=== PATIENT | male | born 1945 | race African-American/Black ===

== ENCOUNTER 2019-04-16 22:32 | Inpatient (IN) | payer MEDICARE, OTHER ==
[~2019-04-16] VITALS: Ht 203.2 cm; Wt 68.5 kg
[2019-04-16] MEDS ORDERED: ONDANSETRON HCL 4MG/2ML INJ IV STA (23:14)
[2019-04-16] MEDS ORDERED: SODIUM CHLORIDE 0.9% 1,000 ML IV ONE (23:14)
[2019-04-16 23:50] LABS: BASOPHILS % 0.5 % (0.0-2.0); EOSINOPHILS % 0.1 % (0.0-5.0); HEMATOCRIT. 43.3 % (42.0-52.0); HEMOGLOBIN. 12.1 g/dL (14.0-18.0); LYMPHOCYTES % 7.9 % (20.0-50.0); MEAN CORPUSCULAR HEMOGLOBIN 27.1 pg (28.0-32.0); MEAN CORPUSCULAR VOLUME 96.6 fL (80.0-94.0); MEAN PLATELET VOLUME 10.7 fl (7.4-10.4); MONOCYTES % 3.5 % (2.0-8.0); PLATELET 286 x1000/uL (130-400); RED BLOOD CELL COUNT 4.48 mill/uL (4.7-6.1); RED CELL DISTRIBUTION WIDTH 16.4 % (11.6-14.6)
[2019-04-16 23:53] LABS: CHLORIDE 84 mEq/L (98-107)
[2019-04-17] VITALS (36 sets, daily range): BP systolic 93–141; BP diastolic 51–78
[2019-04-17] MEDS ORDERED: SODIUM CHLORIDE 0.9% 1,000 ML IV ONE ×2 (00:50)
[2019-04-17] MEDS ORDERED: INSULIN REGULAR (DRIP) 100 UNITS in SODIUM CHLORIDE 0.9% 99 ML IV SCH (01:00)
[2019-04-17 01:12] LABS: PHOSPHORUS 3.9 mg/dL (2.5-4.9)
[2019-04-17 02:14] LABS: CLARITY URINE CLEAR (CLEAR); COLOR URINE YELLOW (YELLOW); KETONES URINE TRACE (NEGATIVE); LEUKOCYTE ESTERASE URINE NEGATIVE (NEGATIVE); NITRITE URINE NEGATIVE (NEGATIVE); OCCULT BLOOD URINE NEGATIVE (NEGATIVE); PH URINE 5.5 (4.5-8.0); PROTEIN URINE NEGATIVE (NEGATIVE); SPECIFIC GRAVITY URINE 1.032 (1.005-1.030); UROBILINOGEN URINE 0.2 E.U./dL (0.2-1.0)
[2019-04-17] MEDS ORDERED: DEXTROSE 50% WATER 50ML SYRINGE IV PRN ×2 (05:45)
[2019-04-17] MEDS ORDERED: HYDRALAZINE 20MG/ML VIAL IV PRN (06:00)
[2019-04-17] MEDS ORDERED: NA PHOS,M-B/NA PHOS,DI-BA ENEMA 118ML PR PRN (06:00)
[2019-04-17] MEDS: BLOOD SUGAR DIAGNOSTIC STRIP TEST SCH ×13 (06:00→21:08)
[2019-04-17] MEDS ORDERED: ONDANSETRON HCL 4MG/2ML INJ IV PRN (06:00)
[2019-04-17] MEDS ORDERED: MAGNESIUM/ALUMINUM HYDROXIDE/SIMETHICONE 30ML UDC PO PRN (06:00)
[2019-04-17] MEDS: SODIUM CHLORIDE 0.45% 1,000 ML IV SCH ×3 (06:00→21:07)
[2019-04-17] MEDS: SODIUM CHLORIDE 0.9% INJ 3ML FLUSH IVF SCH ×3 (06:00→22:32)
[2019-04-17] MEDS ORDERED: GUAIFENESIN 200MG/10ML SUGAR FREE UDC PO PRN (06:00)
[2019-04-17] MEDS ORDERED: DOCUSATE SODIUM 100MG CAPSULE PO PRN (06:00)
[2019-04-17] MEDS ORDERED: IPRATROPIUM/ALBUTEROL 0.5-3(2.5)MG/3ML NEB INH PRN (06:00)
[2019-04-17] MEDS ORDERED: CLONIDINE 0.1MG TABLET PO PRN (06:00)
[2019-04-17] MEDS ORDERED: LORAZEPAM 2MG/ML CPJ IV PRN (06:00)
[2019-04-17] MEDS ORDERED: HYDROCODONE/ACETAMINOPHEN 10/325MG TABLET PO PRN (06:00)
[2019-04-17] MEDS ORDERED: HYDROMORPHONE HCL/PF 2MG/ML CPJ IV PRN (06:00)
[2019-04-17] MEDS ORDERED: DIPHENHYDRAMINE 50MG/ML VIAL IV PRN (06:00)
[2019-04-17] MEDS ORDERED: ACETAMINOPHEN 325MG TABLET PO PRN (06:00)
[2019-04-17 06:28] LABS: HEMATOCRIT 38.2 % (42.0-52.0); HEMOGLOBIN 11.6 g/dL (14.0-18.0); MEAN CORPUSCULAR HEMOGLOBIN 26.8 pg (28.0-32.0); MEAN CORPUSCULAR VOLUME 88.1 fL (80.0-94.0); PLATELET 251 x1000/uL (130-400); RED BLOOD CELL COUNT 4.34 mill/uL (4.7-6.1); RED CELL DISTRIBUTION WIDTH 16.1 % (11.6-14.6)
[2019-04-17] MEDS ORDERED: INSULIN REGULAR (DRIP) 100 UNITS in SODIUM CHLORIDE 0.9% 99 ML IV PRN (07:00)
[2019-04-17] MEDS ORDERED: INSULIN REGULAR (DRIP) 100 UNITS in SODIUM CHLORIDE 0.9% 100 ML IV SCH (07:00)
[2019-04-17] MEDS: ENOXAPARIN 40MG/0.4ML SYR SUBCUT SCH (08:59)
[2019-04-17] MEDS: ASPIRIN 81MG EC TABLET PO SCH (08:59)
[2019-04-17 09:17] LABS: BG BASE EXCESS 0.2 mmol/L (-2.0-2.0); BG CARBOXYHEMOGLOBIN 0.1 % (0.5-1.5); BG DEOXYHEMOGLOBIN 2.5 % (0.0-5.0); BG FRACTION INSPIRED OXYGEN 28; BG HCO3 ACT 27.3 mmol/L (22.0-26.0); BG METHEMOGLOBIN 0.3 % (0.0-1.5); BG OXYGEN SATURATION 97.5 % (92.0-98.5); BG OXYHEMOGLOBIN 97.1 % (94.0-97.0); BG PCO2 56.2 mmHg (35.0-45.0); BG PH 7.304 (7.350-7.450); BG PO2 109.6 mmHg (75.0-100.0); BG SAMPLE SITE RIGHT RADIAL; BG VENT MODE NASAL CANNULA
[2019-04-17] MEDS ORDERED: MULT-1234 MT (11:21)
[2019-04-17] MEDS ORDERED: ASPI-1393 MT (11:21)
[2019-04-17] MEDS ORDERED: CLOP75TA15 MT (11:21)
[2019-04-17] MEDS ORDERED: APIX5TAB MT (11:21)
[2019-04-17] MEDS ORDERED: FINA5TAB11 MT (11:21)
[2019-04-17] MEDS ORDERED: CETI10TA6 MT (11:21)
[2019-04-17] MEDS ORDERED: FURO40TA5 MT (11:21)
[2019-04-17] MEDS ORDERED: CARV3.1242 MT (11:21)
[2019-04-17] MEDS ORDERED: TAMS-11 MT (11:21)
[2019-04-17] MEDS ORDERED: ATOR40TA70 MT (11:21)
[2019-04-17 11:48] LABS: *AMPHETAMINES SCREEN URINE NEGATIVE (NEGATIVE); *BARBITURATES SCREEN URINE NEGATIVE (NEGATIVE); *BENZODIAZEPINES SCREEN URINE NEGATIVE (NEGATIVE); CANNABINOID URINE SCREEN NEGATIVE (NEGATIVE); OPIATES URINE SCREEN NEGATIVE (NEGATIVE); PHENCYCLIDINE URINE SCREEN NEGATIVE (NEGATIVE)
[2019-04-17 11:49] LABS: *COCAINE SCREEN URINE NEGATIVE (NEGATIVE); METHADONE URINE SCREEN NEGATIVE (NEGATIVE)
[2019-04-17 13:35] LABS: BG BASE EXCESS 1.3 mmol/L (-2.0-2.0); BG CARBOXYHEMOGLOBIN 0.3 % (0.5-1.5); BG DEOXYHEMOGLOBIN 3.5 % (0.0-5.0); BG FRACTION INSPIRED OXYGEN 28; BG METHEMOGLOBIN 0.3 % (0.0-1.5); BG OXYGEN SATURATION 96.5 % (92.0-98.5); BG OXYHEMOGLOBIN 95.9 % (94.0-97.0); BG PCO2 54.5 mmHg (35.0-45.0); BG PH 7.329 (7.350-7.450); BG PO2 94.2 mmHg (75.0-100.0); BG SAMPLE SITE RIGHT BRACHIAL; BG TOTAL HEMOGLOBIN 11.2 g/dL (12.0-18.0); BG VENT MODE NASAL CANNULA
[2019-04-17] MEDS ORDERED: HYDROCODONE/ACETAMINOPHEN 5/325MG TABLET PO PRN (14:15)
[2019-04-17 14:25] LABS: BASOPHILS % 0.7 % (0.0-2.0); EOSINOPHILS % 2.1 % (0.0-5.0); HEMATOCRIT. 37.2 % (42.0-52.0); HEMOGLOBIN. 11.9 g/dL (14.0-18.0); LYMPHOCYTES % 11.3 % (20.0-50.0); MEAN CORPUSCULAR HEMOGLOBIN 26.8 pg (28.0-32.0); MEAN CORPUSCULAR VOLUME 83.5 fL (80.0-94.0); MEAN PLATELET VOLUME 9.4 fl (7.4-10.4); MONOCYTES % 10.3 % (2.0-8.0); NEUTROPHILS % 75.6 % (40.0-76.0); PLATELET 303 x1000/uL (130-400); RED BLOOD CELL COUNT 4.45 mill/uL (4.7-6.1); RED CELL DISTRIBUTION WIDTH 16.1 % (11.6-14.6)
[2019-04-17 14:28] LABS: CHLORIDE 116 mEq/L (98-107)
[2019-04-17 14:34] LABS: D-DIMER 0.4 mg/L FEU (<0.50); INR 1.1
[2019-04-17 14:39] LABS: CREATINE KINASE 175 IU/L (39-308); CREATINE KINASE MB FRACTION 1.4 ng/mL (0.5-3.6)
[2019-04-17] MEDS: CLOPIDOGREL 75MG TABLET PO SCH (15:29)
[2019-04-17] MEDS: TAMSULOSIN HCL 0.4MG SR CAPSULE PO SCH (15:30)
[2019-04-17] MEDS: FINASTERIDE 5MG TABLET PO SCH (15:30)
[2019-04-17] MEDS ORDERED: INSULIN GLARGINE UD 100 UNITS/ML SYR SUBCUT NR (16:00)
[2019-04-17] MEDS ORDERED: MEDICATION NOT ON FORMULARY EA (Apixaban (Eliquis) 1 TAB) MT SCH (17:00)
[2019-04-17] MEDS: INSULIN LISPRO 100 UNITS/ML SUBCUT SCH ×2 (17:32→21:49)
[2019-04-17] MEDS: PIPERACILLIN/TAZ 3.375G PREMIX 50 ML IV SCH ×2 (17:33→23:56)
[2019-04-17] MEDS: IPRATROPIUM/ALBUTEROL 0.5-3(2.5)MG/3ML NEB HHN SCH (21:13)
[2019-04-17] MEDS: BUDESONIDE 0.5MG/2ML NEB HHN SCH (21:13)
[2019-04-17] MEDS: CARVEDILOL 3.125 MG TABLET PO SCH (21:57)
[2019-04-18] VITALS (39 sets, daily range): BP systolic 85–140; BP diastolic 51–79
[2019-04-18] MEDS: ACETYLCYSTEINE 100MG/ML 10% VIAL 4ML INH SCH ×3 (01:59→16:36)
[2019-04-18] MEDS: IPRATROPIUM/ALBUTEROL 0.5-3(2.5)MG/3ML NEB HHN SCH ×5 (01:59→19:50)
[2019-04-18] MEDS: SODIUM CHLORIDE 0.45% 1,000 ML IV SCH ×4 (04:49→22:55)
[2019-04-18] MEDS: SODIUM CHLORIDE 0.9% INJ 3ML FLUSH IVF SCH ×3 (06:00→20:41)
[2019-04-18 06:16] LABS: CHLORIDE 112 mEq/L (98-107)
[2019-04-18 06:27] LABS: LDL CHOLESTEROL 23 mg/dL (5-100)
[2019-04-18 06:28] LABS: BASOPHILS % 0.8 % (0.0-2.0); HDL CHOLESTEROL 42 mg/dL (40-59); HEMOGLOBIN. 9.6 g/dL (14.0-18.0); LYMPHOCYTES % 16.7 % (20.0-50.0); MEAN CORPUSCULAR HEMOGLOBIN 26.9 pg (28.0-32.0); MEAN CORPUSCULAR VOLUME 83.6 fL (80.0-94.0); MEAN PLATELET VOLUME 9.6 fl (7.4-10.4); MONOCYTES % 6.9 % (2.0-8.0); NEUTROPHILS % 72.6 % (40.0-76.0); PLATELET 261 x1000/uL (130-400); RED BLOOD CELL COUNT 3.59 mill/uL (4.7-6.1); RED CELL DISTRIBUTION WIDTH 16.2 % (11.6-14.6); T4 FREE 1.36 ng/dL (0.76-1.46)
[2019-04-18] MEDS: PIPERACILLIN/TAZ 3.375G PREMIX 50 ML IV SCH ×3 (07:00→17:22)
[2019-04-18] MEDS: BLOOD SUGAR DIAGNOSTIC STRIP TEST SCH ×4 (07:08→21:27)
[2019-04-18] MEDS: INSULIN LISPRO 100 UNITS/ML SUBCUT SCH ×4 (07:13→21:49)
[2019-04-18] MEDS: BUDESONIDE 0.5MG/2ML NEB HHN SCH ×2 (07:21→19:50)
[2019-04-18] MEDS: ENOXAPARIN 40MG/0.4ML SYR SUBCUT SCH (08:35)
[2019-04-18] MEDS: CARVEDILOL 3.125 MG TABLET PO SCH ×2 (08:36→21:50)
[2019-04-18] MEDS: CLOPIDOGREL 75MG TABLET PO SCH (08:36)
[2019-04-18] MEDS: FINASTERIDE 5MG TABLET PO SCH (08:36)
[2019-04-18] MEDS: TAMSULOSIN HCL 0.4MG SR CAPSULE PO SCH (08:36)
[2019-04-18] MEDS: ASPIRIN 81MG EC TABLET PO SCH (08:37)
[2019-04-18] MEDS: MULTIVITAMINS,THER W-MINERALS TABLET PO SCH (08:37)
[2019-04-18] MEDS: ATORVASTATIN CALCIUM 40MG TABLET PO SCH (08:37)
[2019-04-18] MEDS: INSULIN GLARGINE UD 100 UNITS/ML SYR SUBCUT SCH (10:34)
[2019-04-19] VITALS (22 sets, daily range): BP systolic 106–134; BP diastolic 58–87
[2019-04-19] MEDS: PIPERACILLIN/TAZ 3.375G PREMIX 50 ML IV SCH ×4 (00:08→18:00)
[2019-04-19] MEDS: ACETYLCYSTEINE 100MG/ML 10% VIAL 4ML INH SCH ×3 (02:02→16:51)
[2019-04-19] MEDS: IPRATROPIUM/ALBUTEROL 0.5-3(2.5)MG/3ML NEB HHN SCH ×4 (02:03→20:23)
[2019-04-19] MEDS: SODIUM CHLORIDE 0.9% INJ 3ML FLUSH IVF SCH ×3 (06:00→21:34)
[2019-04-19] MEDS: BLOOD SUGAR DIAGNOSTIC STRIP TEST SCH ×4 (07:50→21:34)
[2019-04-19] MEDS: INSULIN LISPRO 100 UNITS/ML SUBCUT SCH ×4 (08:20→21:39)
[2019-04-19] MEDS: BUDESONIDE 0.5MG/2ML NEB HHN SCH ×2 (09:09→20:23)
[2019-04-19] MEDS: FINASTERIDE 5MG TABLET PO SCH (09:53)
[2019-04-19] MEDS: CARVEDILOL 3.125 MG TABLET PO SCH ×2 (09:54→21:40)
[2019-04-19] MEDS: TAMSULOSIN HCL 0.4MG SR CAPSULE PO SCH (09:54)
[2019-04-19] MEDS: CLOPIDOGREL 75MG TABLET PO SCH (09:54)
[2019-04-19] MEDS: MULTIVITAMINS,THER W-MINERALS TABLET PO SCH (09:54)
[2019-04-19] MEDS: ASPIRIN 81MG EC TABLET PO SCH (09:55)
[2019-04-19] MEDS: ENOXAPARIN 40MG/0.4ML SYR SUBCUT SCH (09:56)
[2019-04-19] MEDS: ATORVASTATIN CALCIUM 40MG TABLET PO SCH (09:57)
[2019-04-19] MEDS: INSULIN GLARGINE UD 100 UNITS/ML SYR SUBCUT SCH (10:00)
[2019-04-19 10:46] LABS: BASOPHILS % 0.3 % (0.0-2.0); EOSINOPHILS % 1.9 % (0.0-5.0); HEMATOCRIT. 28.5 % (42.0-52.0); LYMPHOCYTES % 17.1 % (20.0-50.0); MEAN CORPUSCULAR HEMOGLOBIN 26.3 pg (28.0-32.0); MEAN CORPUSCULAR VOLUME 83.5 fL (80.0-94.0); MEAN PLATELET VOLUME 9.5 fl (7.4-10.4); MONOCYTES % 7.2 % (2.0-8.0); NEUTROPHILS % 73.5 % (40.0-76.0); PLATELET 244 x1000/uL (130-400); RED BLOOD CELL COUNT 3.42 mill/uL (4.7-6.1); RED CELL DISTRIBUTION WIDTH 16.8 % (11.6-14.6)
[2019-04-19 11:34] LABS: CHLORIDE 107 mEq/L (98-107)
[2019-04-19] MEDS: SODIUM CHLORIDE 0.45% 1,000 ML IV SCH (15:57)
[2019-04-20] VITALS (16 sets, daily range): BP systolic 74–144; BP diastolic 48–75
[2019-04-20] MEDS: PIPERACILLIN/TAZ 3.375G PREMIX 50 ML IV SCH ×5 (00:26→23:35)
[2019-04-20] MEDS: ACETYLCYSTEINE 100MG/ML 10% VIAL 4ML INH SCH ×2 (01:05→07:40)
[2019-04-20] MEDS: IPRATROPIUM/ALBUTEROL 0.5-3(2.5)MG/3ML NEB HHN SCH ×4 (01:05→20:05)
[2019-04-20] MEDS: SODIUM CHLORIDE 0.9% INJ 3ML FLUSH IVF SCH ×3 (05:07→21:47)
[2019-04-20] MEDS: SODIUM CHLORIDE 0.45% 1,000 ML IV SCH (05:10)
[2019-04-20 07:00] LABS: BASOPHILS % 0.5 % (0.0-2.0); EOSINOPHILS % 2.6 % (0.0-5.0); HEMATOCRIT. 28.1 % (42.0-52.0); HEMOGLOBIN. 9.1 g/dL (14.0-18.0); MEAN CORPUSCULAR HEMOGLOBIN 26.7 pg (28.0-32.0); MEAN CORPUSCULAR VOLUME 82.6 fL (80.0-94.0); MEAN PLATELET VOLUME 9.5 fl (7.4-10.4); MONOCYTES % 8.1 % (2.0-8.0); NEUTROPHILS % 71.8 % (40.0-76.0); PLATELET 212 x1000/uL (130-400); RED CELL DISTRIBUTION WIDTH 16.4 % (11.6-14.6)
[2019-04-20] MEDS: BUDESONIDE 0.5MG/2ML NEB HHN SCH ×2 (07:40→20:05)
[2019-04-20] MEDS: BLOOD SUGAR DIAGNOSTIC STRIP TEST SCH ×4 (07:50→21:45)
[2019-04-20] MEDS: CLOPIDOGREL 75MG TABLET PO SCH (08:12)
[2019-04-20] MEDS: CARVEDILOL 3.125 MG TABLET PO SCH ×2 (08:12→21:42)
[2019-04-20] MEDS: MULTIVITAMINS,THER W-MINERALS TABLET PO SCH (08:12)
[2019-04-20] MEDS: ATORVASTATIN CALCIUM 40MG TABLET PO SCH (08:12)
[2019-04-20] MEDS: ASPIRIN 81MG EC TABLET PO SCH (08:12)
[2019-04-20] MEDS: INSULIN LISPRO 100 UNITS/ML SUBCUT SCH ×4 (08:13→21:47)
[2019-04-20] MEDS: TAMSULOSIN HCL 0.4MG SR CAPSULE PO SCH (08:13)
[2019-04-20] MEDS: FINASTERIDE 5MG TABLET PO SCH (08:13)
[2019-04-20] MEDS: ENOXAPARIN 40MG/0.4ML SYR SUBCUT SCH (08:13)
[2019-04-20 08:40] LABS: CHLORIDE 106 mEq/L (98-107)
[2019-04-20] MEDS: INSULIN GLARGINE UD 100 UNITS/ML SYR SUBCUT SCH (09:41)
[2019-04-20] MEDS ORDERED: INSULIN GLARGINE UD 100 UNITS/ML SYR SUBCUT NR (14:00)
[2019-04-21] VITALS: BP 108/61
[2019-04-21] MEDS: IPRATROPIUM/ALBUTEROL 0.5-3(2.5)MG/3ML NEB HHN SCH ×3 (01:55→13:23)
[2019-04-21 04:00] VITALS: BP 122/66
[2019-04-21] MEDS: BLOOD SUGAR DIAGNOSTIC STRIP TEST SCH ×3 (06:45→17:25)
[2019-04-21] MEDS: PIPERACILLIN/TAZ 3.375G PREMIX 50 ML IV SCH ×2 (06:45→13:11)
[2019-04-21] MEDS: SODIUM CHLORIDE 0.9% INJ 3ML FLUSH IVF SCH (06:45)
[2019-04-21 07:04] LABS: BASOPHILS % 0.4 % (0.0-2.0); EOSINOPHILS % 3.1 % (0.0-5.0); HEMATOCRIT. 26.6 % (42.0-52.0); HEMOGLOBIN. 8.6 g/dL (14.0-18.0); LYMPHOCYTES % 18.4 % (20.0-50.0); MEAN CORPUSCULAR HEMOGLOBIN 26.8 pg (28.0-32.0); MEAN CORPUSCULAR VOLUME 83.1 fL (80.0-94.0); MEAN PLATELET VOLUME 9.4 fl (7.4-10.4); MONOCYTES % 8.8 % (2.0-8.0); NEUTROPHILS % 69.3 % (40.0-76.0); PLATELET 212 x1000/uL (130-400); RED CELL DISTRIBUTION WIDTH 16.6 % (11.6-14.6)
[2019-04-21 07:15] LABS: CHLORIDE 105 mEq/L (98-107)
[2019-04-21 08:00] VITALS: BP 116/66
[2019-04-21] MEDS: INSULIN LISPRO 100 UNITS/ML SUBCUT SCH ×3 (08:50→17:32)
[2019-04-21] MEDS: CLOPIDOGREL 75MG TABLET PO SCH (08:51)
[2019-04-21] MEDS: CARVEDILOL 3.125 MG TABLET PO SCH (08:52)
[2019-04-21] MEDS: FINASTERIDE 5MG TABLET PO SCH (08:52)
[2019-04-21] MEDS: MULTIVITAMINS,THER W-MINERALS TABLET PO SCH (08:52)
[2019-04-21] MEDS: ASPIRIN 81MG EC TABLET PO SCH (08:53)
[2019-04-21] MEDS: ENOXAPARIN 40MG/0.4ML SYR SUBCUT SCH (08:53)
[2019-04-21] MEDS ORDERED: POTASSIUM CHLORIDE 20MEQ TABLET SR PO NR (09:00)
[2019-04-21] MEDS: ATORVASTATIN CALCIUM 40MG TABLET PO SCH (09:03)
[2019-04-21] MEDS: TAMSULOSIN HCL 0.4MG SR CAPSULE PO SCH (09:03)
[2019-04-21] MEDS ORDERED: MAGNESIUM 2 G PREMIX 50 ML IV NR (10:00)
[2019-04-21] MEDS ORDERED: INSULIN GLARGINE UD 100 UNITS/ML SYR SUBCUT SCH (10:00)
[2019-04-21 12:00] VITALS: BP 102/62
[2019-04-21 15:24] VITALS: BP 18/102
[2019-04-21 16:00] VITALS: BP 110/74
[2019-04-21] MEDS ORDERED: METFORMIN HCL 500MG TABLET PO SCH (18:10)
== END 2019-04-21 18:14 | disposition home health service (06) | DRG 637 ==
LOC: ER 22:32 → CVICU 04-17 01:25 → ENRESERV 04-17 02:40 → 7WST 04-20 12:13
PROVIDERS: ADMIT Internal Medicine; ATTEND Internal Medicine
DX: E11.10 Type 2 diabetes mellitus with ketoacidosis without coma (principal); J18.9 Pneumonia, unspecified organism; G93.40 Encephalopathy, unspecified; E87.0 Hyperosmolality and hypernatremia; D68.59 Other primary thrombophilia; E87.1 Hypo-osmolality and hyponatremia; J44.0 Chronic obstructive pulmonary disease with (acute) lower respiratory infection; J44.1 Chronic obstructive pulmonary disease with (acute) exacerbation; Z68.1 Body mass index [BMI] 19.9 or less, adult; N17.9 Acute kidney failure, unspecified; E86.0 Dehydration; E87.5 Hyperkalemia; I10 Essential (primary) hypertension; D64.9 Anemia, unspecified; G90.8 Other disorders of autonomic nervous system; Z60.2 Problems related to living alone; N40.0 Benign prostatic hyperplasia without lower urinary tract symptoms; R62.7 Adult failure to thrive; Z91.14 Patient's other noncompliance with medication regimen; Z79.4 Long term (current) use of insulin; Z91.19 Patient's noncompliance with other medical treatment and regimen; Z79.82 Long term (current) use of aspirin; Z79.899 Other long term (current) drug therapy
CPT/HCPCS: 36415; 36600; 71045; 76770; 80048; 80061; 80305; 82140; 82375; 82550; 82553; 82805; 82962; 83036; 83735; 83880; 84100; 84153; 84439; 84443; 84484; 85027; 85379; 93005; 93306; 93880; 94640; 96374; 97110; 97116; 97162; 99285; J1650; J1815; J2405; J2543; J3475; J7030; J7040; J7050; J7608; J7620; J7626; A4315; G0103

== ENCOUNTER 2019-07-11 09:16 | Inpatient (IN) | payer OTHER, MEDICARE ==
[~2019-07-11] VITALS: Ht 185.4 cm; Wt 65.8 kg
[~2019-07-11 09:16] MED LIST: APIX5TAB MT; ASPI-1393 MT; ATOR40TA70 MT; CARV3.1242 MT; CLOP75TA15 MT; FINA5TAB11 MT; MULT-1234 MT; TAMS-11 MT
[2019-07-11] MEDS ORDERED: SODIUM CHLORIDE 0.9% 1,000 ML IV ONE (10:17)
[2019-07-11] MEDS ORDERED: ACETAMINOPHEN WITH CODEINE 300/30MG TABLET PO STA (10:17)
[2019-07-11] MEDS ORDERED: ALBUTEROL (0.083%) 2.5MG/3ML NEB HHN ONE (10:30)
[2019-07-11 11:12] LABS: BASOPHILS % 1.1 % (0.0-2.0); EOSINOPHILS % 7.3 % (0.0-5.0); HEMATOCRIT. 25.4 % (42.0-52.0); HEMOGLOBIN. 7.9 g/dL (14.0-18.0); LYMPHOCYTES % 22.5 % (20.0-50.0); MEAN CORPUSCULAR VOLUME 80.4 fL (80.0-94.0); MEAN PLATELET VOLUME 8.4 fl (7.4-10.4); MONOCYTES % 8.1 % (2.0-8.0); PLATELET 292 x1000/uL (130-400); RED BLOOD CELL COUNT 3.16 mill/uL (4.7-6.1); RED CELL DISTRIBUTION WIDTH 17.5 % (11.6-14.6)
[2019-07-11 11:17] LABS: CHLORIDE 105 mEq/L (98-107)
[2019-07-11] MEDS ORDERED: METHYLPREDNISOLONE SOD SUCC 125 MG/2 ML VIAL IV STA (11:52)
[2019-07-11] MEDS ORDERED: ASPIRIN 81MG TABLET PO ONE (12:00)
[2019-07-11 16:00] VITALS: BP 146/85
[2019-07-11 16:14] VITALS: BP 146/85
[2019-07-11] MEDS ORDERED: IPRATROPIUM/ALBUTEROL 0.5-3(2.5)MG/3ML NEB HHN PRN (16:30)
[2019-07-11] MEDS ORDERED: MAGNESIUM HYDROXIDE 400MG/5ML 30ML UDC PO PRN (16:30)
[2019-07-11] MEDS ORDERED: GUAIFENESIN 200MG/10ML SUGAR FREE UDC PO PRN (16:30)
[2019-07-11] MEDS ORDERED: LORAZEPAM 0.5MG TABLET PO PRN (16:30)
[2019-07-11] MEDS ORDERED: DIPHENHYDRAMINE 50MG/ML VIAL IV PRN (16:30)
[2019-07-11] MEDS ORDERED: TEMAZEPAM 15MG CAPSULE PO PRN (16:30)
[2019-07-11] MEDS ORDERED: ONDANSETRON HCL 4MG/2ML INJ IV PRN (16:30)
[2019-07-11] MEDS ORDERED: ACETAMINOPHEN 325MG TABLET PO PRN (16:30)
[2019-07-11] MEDS ORDERED: MAGNESIUM/ALUMINUM HYDROXIDE/SIMETHICONE 30ML UDC PO PRN (16:30)
[2019-07-11] MEDS ORDERED: DEXTROSE 50% WATER 50ML SYRINGE IV PRN (17:00)
[2019-07-11] MEDS: IPRATROPIUM/ALBUTEROL 0.5-3(2.5)MG/3ML NEB HHN SCH ×2 (17:37→21:23)
[2019-07-11] MEDS: ENOXAPARIN 40MG/0.4ML SYR SUBCUT SCH (18:00)
[2019-07-11] MEDS: BLOOD SUGAR DIAGNOSTIC STRIP TEST SCH ×2 (18:01→21:24)
[2019-07-11] MEDS: INSULIN LISPRO 100 UNITS/ML SUBCUT SCH ×2 (18:01→21:23)
[2019-07-11] MEDS ORDERED: METFORMIN HCL 500MG TABLET PO SCH (18:10)
[2019-07-11 20:20] VITALS: BP 130/76
[2019-07-11] MEDS: FAMOTIDINE 20MG TABLET PO SCH (21:23)
[2019-07-11] MEDS: METHYLPREDNISOLONE SOD SUCC 125 MG/2 ML VIAL IV SCH (21:24)
[2019-07-11] MEDS: SODIUM CHLORIDE 0.9% INJ 3ML FLUSH IVF SCH (21:24)
[2019-07-11] MEDS: INSULIN GLARGINE UD 100 UNITS/ML SYR SUBCUT SCH (22:19)
[2019-07-12] VITALS (7 sets, daily range): BP systolic 128–144; BP diastolic 71–81
[2019-07-12] MEDS: IPRATROPIUM/ALBUTEROL 0.5-3(2.5)MG/3ML NEB HHN SCH ×6 (01:45→22:16)
[2019-07-12] MEDS: METHYLPREDNISOLONE SOD SUCC 125 MG/2 ML VIAL IV SCH ×3 (06:08→21:13)
[2019-07-12] MEDS: SODIUM CHLORIDE 0.9% INJ 3ML FLUSH IVF SCH ×3 (06:08→21:13)
[2019-07-12] MEDS: BLOOD SUGAR DIAGNOSTIC STRIP TEST SCH ×4 (07:59→21:14)
[2019-07-12] MEDS: METFORMIN HCL 500MG TABLET PO SCH ×2 (08:10→17:45)
[2019-07-12] MEDS: INSULIN LISPRO 100 UNITS/ML SUBCUT SCH ×4 (08:10→21:13)
[2019-07-12] MEDS: CLOPIDOGREL 75MG TABLET PO SCH (08:41)
[2019-07-12] MEDS: FAMOTIDINE 20MG TABLET PO SCH ×2 (08:42→21:13)
[2019-07-12] MEDS: TAMSULOSIN HCL 0.4MG SR CAPSULE PO SCH (08:43)
[2019-07-12] MEDS ORDERED: FUROSEMIDE 20MG/2ML VIAL IVP NR (15:30)
[2019-07-12 15:41] LABS: BASOPHILS % 0.2 % (0.0-2.0); HEMATOCRIT. 23.9 % (42.0-52.0); HEMOGLOBIN. 7.4 g/dL (14.0-18.0); LYMPHOCYTES % 13.8 % (20.0-50.0); MEAN CORPUSCULAR HEMOGLOBIN 24.8 pg (28.0-32.0); MEAN CORPUSCULAR VOLUME 79.9 fL (80.0-94.0); MEAN PLATELET VOLUME 8.5 fl (7.4-10.4); MONOCYTES % 5.6 % (2.0-8.0); NEUTROPHILS % 80.4 % (40.0-76.0); PLATELET 261 x1000/uL (130-400); RED BLOOD CELL COUNT 2.99 mill/uL (4.7-6.1)
[2019-07-12 15:44] LABS: CHLORIDE 104 mEq/L (98-107)
[2019-07-12 16:43] LABS: CLARITY URINE CLEAR (CLEAR); COLOR URINE YELLOW (YELLOW); KETONES URINE NEGATIVE (NEGATIVE); LEUKOCYTE ESTERASE URINE NEGATIVE (NEGATIVE); NITRITE URINE NEGATIVE (NEGATIVE); OCCULT BLOOD URINE NEGATIVE (NEGATIVE); PROTEIN URINE NEGATIVE (NEGATIVE); SPECIFIC GRAVITY URINE 1.013 (1.005-1.030); UROBILINOGEN URINE 0.2 E.U./dL (0.2-1.0)
[2019-07-12] MEDS: ENOXAPARIN 40MG/0.4ML SYR SUBCUT SCH (17:37)
[2019-07-12] MEDS: INSULIN GLARGINE UD 100 UNITS/ML SYR SUBCUT SCH (21:33)
[2019-07-13] VITALS (11 sets, daily range): BP systolic 110–144; BP diastolic 54–85
[2019-07-13] MEDS: IPRATROPIUM/ALBUTEROL 0.5-3(2.5)MG/3ML NEB HHN SCH ×6 (02:00→20:43)
[2019-07-13] MEDS: SODIUM CHLORIDE 0.9% INJ 3ML FLUSH IVF SCH ×3 (05:44→20:39)
[2019-07-13] MEDS: METHYLPREDNISOLONE SOD SUCC 125 MG/2 ML VIAL IV SCH (05:44)
[2019-07-13] MEDS: BLOOD SUGAR DIAGNOSTIC STRIP TEST SCH ×4 (05:52→20:38)
[2019-07-13] MEDS: INSULIN LISPRO 100 UNITS/ML SUBCUT SCH ×4 (08:10→20:37)
[2019-07-13] MEDS: FAMOTIDINE 20MG TABLET PO SCH (08:30)
[2019-07-13] MEDS: CLOPIDOGREL 75MG TABLET PO SCH (08:30)
[2019-07-13] MEDS: METFORMIN HCL 500MG TABLET PO SCH ×2 (08:30→18:30)
[2019-07-13] MEDS: TAMSULOSIN HCL 0.4MG SR CAPSULE PO SCH (08:32)
[2019-07-13 12:26] LABS: HEMOGLOBIN 7.5 g/dL (14.0-18.0); MEAN CORPUSCULAR HEMOGLOBIN 24.7 pg (28.0-32.0); MEAN CORPUSCULAR VOLUME 79.7 fL (80.0-94.0); PLATELET 265 x1000/uL (130-400); RED BLOOD CELL COUNT 3.01 mill/uL (4.7-6.1); RED CELL DISTRIBUTION WIDTH 17.3 % (11.6-14.6)
[2019-07-13 15:12] LABS: CHLORIDE 100 mEq/L (98-107)
[2019-07-13 15:13] LABS: PROTHROMBIN TIME 10.7 sec (9.6-11.0)
[2019-07-13 15:18] LABS: TOTAL IRON BINDING CAPACITY 252 ug/dL (250-450)
[2019-07-13] MEDS: PANTOPRAZOLE SODIUM 40 MG/VIAL IV SCH (17:18)
[2019-07-13] MEDS ORDERED: FUROSEMIDE 40MG/4ML VIAL IVP NR (18:00)
[2019-07-13] MEDS: METHYLPREDNISOLONE SOD SUCC 40 MG/ML VIAL IV SCH (20:38)
[2019-07-13] MEDS: INSULIN GLARGINE UD 100 UNITS/ML SYR SUBCUT SCH (22:33)
[2019-07-14] VITALS: BP 144/84
[2019-07-14] MEDS: IPRATROPIUM/ALBUTEROL 0.5-3(2.5)MG/3ML NEB HHN SCH ×6 (00:28→21:10)
[2019-07-14 04:00] VITALS: BP 114/71
[2019-07-14] MEDS: SODIUM CHLORIDE 0.9% INJ 3ML FLUSH IVF SCH ×3 (06:01→21:30)
[2019-07-14 07:35] LABS: HEMATOCRIT 29.3 % (42.0-52.0); HEMOGLOBIN 9.3 g/dL (14.0-18.0); MEAN CORPUSCULAR HEMOGLOBIN 25.2 pg (28.0-32.0); MEAN CORPUSCULAR VOLUME 79.4 fL (80.0-94.0); PLATELET 295 x1000/uL (130-400); RED BLOOD CELL COUNT 3.69 mill/uL (4.7-6.1)
[2019-07-14 08:00] VITALS: BP 133/80
[2019-07-14] MEDS: BLOOD SUGAR DIAGNOSTIC STRIP TEST SCH ×4 (08:00→21:31)
[2019-07-14 08:04] LABS: CHLORIDE 100 mEq/L (98-107)
[2019-07-14] MEDS: INSULIN LISPRO 100 UNITS/ML SUBCUT SCH ×4 (08:10→21:30)
[2019-07-14 08:24] LABS: LDL CHOLESTEROL 62 mg/dL (5-100)
[2019-07-14 08:27] LABS: HDL CHOLESTEROL 69 mg/dL (40-59)
[2019-07-14] MEDS ORDERED: FUROSEMIDE 40MG TABLET PO SCH (09:00)
[2019-07-14] MEDS: PANTOPRAZOLE SODIUM 40 MG/VIAL IV SCH (09:30)
[2019-07-14] MEDS: METHYLPREDNISOLONE SOD SUCC 40 MG/ML VIAL IV SCH ×2 (09:30→21:29)
[2019-07-14] MEDS: TAMSULOSIN HCL 0.4MG SR CAPSULE PO SCH (09:30)
[2019-07-14] MEDS: METFORMIN HCL 500MG TABLET PO SCH ×2 (09:31→17:57)
[2019-07-14 11:31] LABS: BG BASE EXCESS 3.5 mmol/L (-2.0-2.0); BG DEOXYHEMOGLOBIN 3.8 % (0.0-5.0); BG FRACTION INSPIRED OXYGEN 28; BG HCO3 ACT 29.4 mmol/L (22.0-26.0); BG METHEMOGLOBIN 0.1 % (0.0-1.5); BG OXYGEN SATURATION 96.2 % (92.0-98.5); BG OXYHEMOGLOBIN 96.1 % (94.0-97.0); BG PCO2 50.9 mmHg (35.0-45.0); BG PH 7.379 (7.350-7.450); BG PO2 87.3 mmHg (75.0-100.0); BG SAMPLE SITE RIGHT BRACHIAL; BG TOTAL HEMOGLOBIN 10.1 g/dL (12.0-18.0); BG VENT MODE NASAL CANNULA
[2019-07-14 12:00] VITALS: BP 114/70
[2019-07-14] MEDS: FERROUS SULFATE 325MG TABLET PO SCH ×2 (13:03→17:57)
[2019-07-14 16:00] VITALS: BP_SYST 118; BP_SYST 132; BP_SYST 88; BP_DIAS 63; BP_DIAS 79; BP_DIAS 84
[2019-07-14] MEDS ORDERED: SODIUM CHLORIDE 0.9% 250 ML IV ONE (16:30)
[2019-07-14 20:00] VITALS: BP_SYST 123; BP_SYST 129; BP_SYST 135; BP_DIAS 77; BP_DIAS 82; BP_DIAS 87
[2019-07-14] MEDS: INSULIN GLARGINE UD 100 UNITS/ML SYR SUBCUT SCH (22:19)
[2019-07-15] VITALS: BP 136/84
[2019-07-15] MEDS: IPRATROPIUM/ALBUTEROL 0.5-3(2.5)MG/3ML NEB HHN SCH ×4 (00:36→12:43)
[2019-07-15 04:00] VITALS: BP 125/78
[2019-07-15] MEDS: SODIUM CHLORIDE 0.9% INJ 3ML FLUSH IVF SCH ×2 (06:13→14:26)
[2019-07-15 07:13] LABS: HEMATOCRIT 28.2 % (42.0-52.0); HEMOGLOBIN 8.9 g/dL (14.0-18.0); MEAN CORPUSCULAR HEMOGLOBIN 24.9 pg (28.0-32.0); MEAN CORPUSCULAR VOLUME 78.8 fL (80.0-94.0); PLATELET 283 x1000/uL (130-400); RED BLOOD CELL COUNT 3.58 mill/uL (4.7-6.1); RED CELL DISTRIBUTION WIDTH 16.9 % (11.6-14.6)
[2019-07-15 07:28] LABS: CHLORIDE 99 mEq/L (98-107)
[2019-07-15] MEDS: BLOOD SUGAR DIAGNOSTIC STRIP TEST SCH ×2 (07:40→12:40)
[2019-07-15 08:00] VITALS: BP_SYST 114; BP_SYST 117; BP_SYST 138; BP_DIAS 73; BP_DIAS 77; BP_DIAS 86
[2019-07-15] MEDS: INSULIN LISPRO 100 UNITS/ML SUBCUT SCH ×2 (08:10→13:12)
[2019-07-15] MEDS: PANTOPRAZOLE SODIUM 40 MG/VIAL IV SCH (08:42)
[2019-07-15] MEDS: METFORMIN HCL 500MG TABLET PO SCH (08:42)
[2019-07-15] MEDS: FERROUS SULFATE 325MG TABLET PO SCH ×2 (08:42→13:11)
[2019-07-15] MEDS: METHYLPREDNISOLONE SOD SUCC 40 MG/ML VIAL IV SCH (08:42)
[2019-07-15] MEDS: TAMSULOSIN HCL 0.4MG SR CAPSULE PO SCH (08:43)
[2019-07-15 12:00] VITALS: BP 134/75
[2019-07-15 13:18] VITALS: BP_SYST 131; BP_SYST 142; BP_DIAS 76; BP_DIAS 81
== END 2019-07-15 15:50 | disposition home or self-care (01) | DRG 291 ==
LOC: ER 09:17 → 7WST 13:22 → ENRESERV 13:45
PROVIDERS: ADMIT Internal Medicine; ATTEND Internal Medicine
PROC: 30233N1 Transfusion of Nonautologous Red Blood Cells into Peripheral Vein, Percutaneous Approach (ICD-10-PCS; principal; 2019-07-13)
DX: I11.0 Hypertensive heart disease with heart failure (principal); J96.90 Respiratory failure, unspecified, unspecified whether with hypoxia or hypercapnia; J44.1 Chronic obstructive pulmonary disease with (acute) exacerbation; J84.9 Interstitial pulmonary disease, unspecified; I50.23 Acute on chronic systolic (congestive) heart failure; Z99.81 Dependence on supplemental oxygen; Z87.891 Personal history of nicotine dependence; E11.9 Type 2 diabetes mellitus without complications; E87.5 Hyperkalemia; N40.0 Benign prostatic hyperplasia without lower urinary tract symptoms; Z82.49 Family history of ischemic heart disease and other diseases of the circulatory system; E87.70 Fluid overload, unspecified; D63.8 Anemia in other chronic diseases classified elsewhere; Z79.899 Other long term (current) drug therapy
CPT/HCPCS: 36415; 36600; 71045; 80048; 80061; 81003; 82270; 82375; 82728; 82805; 82962; 83036; 83540; 83550; 83880; 84153; 84439; 84443; 84484; 85027; 85044; 86850; 86900; 86920; 87070; 93005; 93306; 93880; 93970; 94640; 96365; 99285; C9113; J1650; J1815; J1940; J2920; J2930; J7030; J7040; J7611; J7620; P9016; G0103

== ENCOUNTER 2019-10-17 16:35 | Inpatient (IN) | payer MEDICARE, OTHER ==
[~2019-10-17] VITALS: Ht 185.4 cm; Wt 70.8 kg
[~2019-10-17 16:35] MED LIST changes: -ASPI-1393 MT; +ASPI-1497 MT; -CARV3.1242 MT
[2019-10-17 18:23] LABS: LYMPHOCYTES % 23.8 % (20.0-50.0); MEAN CORPUSCULAR HEMOGLOBIN 25.9 pg (28.0-32.0); MEAN CORPUSCULAR VOLUME 82.8 fL (80.0-94.0); MEAN PLATELET VOLUME 7.6 fl (7.4-10.4); MONOCYTES % 6.9 % (2.0-8.0); NEUTROPHILS % 65.3 % (40.0-76.0); PLATELET 403 x1000/uL (130-400); RED BLOOD CELL COUNT 2.46 mill/uL (4.7-6.1); RED CELL DISTRIBUTION WIDTH 16.9 % (11.6-14.6)
[2019-10-17 18:33] LABS: HEMOGLOBIN. 6.4 g/dL (14.0-18.0)
[2019-10-17 18:34] LABS: HEMATOCRIT. 20.4 % (42.0-52.0)
[2019-10-17 18:37] LABS: CHLORIDE 104 mEq/L (98-107)
[2019-10-17] MEDS ORDERED: FUROSEMIDE 20MG/2ML VIAL IVP ONE (19:00)
[2019-10-17] MEDS ORDERED: PANTOPRAZOLE SODIUM 40 MG/VIAL IV ONE (19:00)
[2019-10-17 19:56] LABS: TOTAL IRON BINDING CAPACITY 241 ug/dL (250-450)
[2019-10-17] MEDS ORDERED: GUAIFENESIN 200MG/10ML SUGAR FREE UDC PO PRN (20:45)
[2019-10-17] MEDS ORDERED: DOCUSATE SODIUM 100MG CAPSULE PO PRN (20:45)
[2019-10-17] MEDS ORDERED: CLONIDINE 0.1MG TABLET PO PRN (20:45)
[2019-10-17] MEDS ORDERED: IPRATROPIUM/ALBUTEROL 0.5-3(2.5)MG/3ML NEB NEB PRN (20:45)
[2019-10-17] MEDS ORDERED: HYDROCODONE/ACETAMINOPHEN 5/325MG TABLET PO PRN (20:45)
[2019-10-17] MEDS ORDERED: MAGNESIUM/ALUMINUM HYDROXIDE/SIMETHICONE 30ML UDC PO PRN (20:45)
[2019-10-17] MEDS ORDERED: ACETAMINOPHEN 650MG SUPP PR PRN (20:45)
[2019-10-17] MEDS ORDERED: ONDANSETRON HCL 4MG/2ML INJ IV PRN (20:45)
[2019-10-17] MEDS ORDERED: LORAZEPAM 0.5MG TABLET PO PRN (20:45)
[2019-10-17] MEDS ORDERED: ACETAMINOPHEN 325MG TABLET PO PRN (20:45)
[2019-10-17] MEDS ORDERED: DIPHENHYDRAMINE 50MG/ML VIAL IV PRN (20:45)
[2019-10-17] MEDS ORDERED: NA PHOS,M-B/NA PHOS,DI-BA ENEMA 118ML PR PRN (20:45)
[2019-10-17 22:18] LABS: INR 1.1; PROTHROMBIN TIME 10.9 sec (9.6-11.0)
[2019-10-17 22:26] LABS: CREATINE KINASE 65 IU/L (39-308)
[2019-10-17 22:27] LABS: CREATINE KINASE MB FRACTION 1.6 ng/mL (0.5-3.6)
[2019-10-17 23:25] VITALS: BP 135/66
[2019-10-18] MEDS ORDERED: METF-414 MT (01:32)
[2019-10-18 01:45] LABS: CLARITY URINE CLEAR (CLEAR); COLOR URINE YELLOW (YELLOW); KETONES URINE NEGATIVE (NEGATIVE); LEUKOCYTE ESTERASE URINE NEGATIVE (NEGATIVE); NITRITE URINE NEGATIVE (NEGATIVE); OCCULT BLOOD URINE NEGATIVE (NEGATIVE); PROTEIN URINE NEGATIVE (NEGATIVE); SPECIFIC GRAVITY URINE 1.007 (1.005-1.030); UROBILINOGEN URINE 0.2 E.U./dL (0.2-1.0)
[2019-10-18 01:56] LABS: *AMPHETAMINES SCREEN URINE NEGATIVE (NEGATIVE); *BARBITURATES SCREEN URINE NEGATIVE (NEGATIVE); *BENZODIAZEPINES SCREEN URINE NEGATIVE (NEGATIVE); *COCAINE SCREEN URINE NEGATIVE (NEGATIVE); METHADONE URINE SCREEN NEGATIVE (NEGATIVE)
[2019-10-18 01:57] LABS: CANNABINOID URINE SCREEN NEGATIVE (NEGATIVE); OPIATES URINE SCREEN NEGATIVE (NEGATIVE); PHENCYCLIDINE URINE SCREEN NEGATIVE (NEGATIVE)
[2019-10-18] MEDS: DEXT 5%/0.45% NACL 1000ML 1,000 ML IV SCH ×2 (02:43→17:35)
[2019-10-18 04:00] VITALS: BP 113/71
[2019-10-18 08:00] VITALS: BP 124/75
[2019-10-18 08:03] LABS: BASOPHILS % 0.5 % (0.0-2.0); EOSINOPHILS % 0.3 % (0.0-5.0); HEMATOCRIT. 26.7 % (42.0-52.0); HEMOGLOBIN. 8.6 g/dL (14.0-18.0); LYMPHOCYTES % 8.8 % (20.0-50.0); MEAN CORPUSCULAR HEMOGLOBIN 26.2 pg (28.0-32.0); MEAN CORPUSCULAR VOLUME 81.7 fL (80.0-94.0); MONOCYTES % 2.4 % (2.0-8.0); PLATELET 454 x1000/uL (130-400); RED BLOOD CELL COUNT 3.27 mill/uL (4.7-6.1); RED CELL DISTRIBUTION WIDTH 16.3 % (11.6-14.6)
[2019-10-18 08:14] LABS: CHLORIDE 106 mEq/L (98-107)
[2019-10-18 08:25] LABS: CREATINE KINASE 56 IU/L (39-308); CREATINE KINASE MB FRACTION 1.5 ng/mL (0.5-3.6)
[2019-10-18 08:26] LABS: HDL CHOLESTEROL 53 mg/dL (40-59); T4 FREE 1.15 ng/dL (0.76-1.46)
[2019-10-18 08:27] LABS: LDL CHOLESTEROL 38 mg/dL (5-100)
[2019-10-18] MEDS: PANTOPRAZOLE SODIUM 40 MG/VIAL IV SCH (08:51)
[2019-10-18] MEDS: IPRATROPIUM/ALBUTEROL 0.5-3(2.5)MG/3ML NEB NEB SCH ×3 (09:12→20:57)
[2019-10-18] MEDS: BUDESONIDE 0.5MG/2ML NEB HHN SCH ×2 (09:13→20:56)
[2019-10-18] MEDS ORDERED: SODIUM POLYSTYRENE SULFONATE 15 G/60 ML BOT PO SCH (11:45)
[2019-10-18 12:00] VITALS: BP 156/61
[2019-10-18] MEDS ORDERED: DEXTROSE 50% WATER 50ML SYRINGE IV PRN (13:45)
[2019-10-18] MEDS ORDERED: DIATR MEGLU/DIATRIZOATE SOLN 30ML PO NR (14:30)
[2019-10-18 16:00] VITALS: BP 129/72
[2019-10-18] MEDS: INSULIN LISPRO 100 UNITS/ML SUBCUT SCH ×2 (17:34→21:00)
[2019-10-18] MEDS: BLOOD SUGAR DIAGNOSTIC STRIP TEST SCH ×2 (17:37→21:24)
[2019-10-18 19:32] LABS: HEMATOCRIT 27.9 % (42.0-52.0); HEMOGLOBIN 8.7 g/dL (14.0-18.0)
[2019-10-18 19:34] LABS: CHLORIDE 103 mEq/L (98-107)
[2019-10-18 20:00] VITALS: BP 125/69
[2019-10-19] VITALS: BP 120/55
[2019-10-19 01:12] LABS: HEMATOCRIT 26.3 % (42.0-52.0); HEMOGLOBIN 8.5 g/dL (14.0-18.0)
[2019-10-19] MEDS: IPRATROPIUM/ALBUTEROL 0.5-3(2.5)MG/3ML NEB NEB SCH ×4 (02:08→20:30)
[2019-10-19 04:00] VITALS: BP 122/64
[2019-10-19] MEDS: INSULIN LISPRO 100 UNITS/ML SUBCUT SCH ×4 (06:55→21:12)
[2019-10-19] MEDS: BLOOD SUGAR DIAGNOSTIC STRIP TEST SCH ×4 (06:55→20:59)
[2019-10-19 07:17] LABS: HEMATOCRIT 28.3 % (42.0-52.0); HEMOGLOBIN 8.7 g/dL (14.0-18.0); MEAN CORPUSCULAR HEMOGLOBIN 25.5 pg (28.0-32.0); MEAN CORPUSCULAR VOLUME 82.5 fL (80.0-94.0); PLATELET 481 x1000/uL (130-400); RED BLOOD CELL COUNT 3.43 mill/uL (4.7-6.1); RED CELL DISTRIBUTION WIDTH 16.5 % (11.6-14.6)
[2019-10-19 07:25] LABS: CHLORIDE 106 mEq/L (98-107)
[2019-10-19 08:00] VITALS: BP 132/62
[2019-10-19] MEDS: BUDESONIDE 0.5MG/2ML NEB HHN SCH (08:28)
[2019-10-19] MEDS ORDERED: DIATR MEGLU/DIATRIZOATE SOLN 30ML PO NR (09:20)
[2019-10-19] MEDS: PANTOPRAZOLE SODIUM 40 MG/VIAL IV SCH (09:35)
[2019-10-19 13:22] LABS: HEMATOCRIT 26.5 % (42.0-52.0); HEMOGLOBIN 8.4 g/dL (14.0-18.0)
[2019-10-19] MEDS ORDERED: IOHEXOL-300 100 ML BOTTLE ONE (15:07)
[2019-10-19 16:00] VITALS: BP 123/71
[2019-10-19 19:51] LABS: HEMATOCRIT 28.8 % (42.0-52.0)
[2019-10-19 20:00] VITALS: BP 120/71
[2019-10-19] MEDS: DEXT 5%/0.45% NACL 1000ML 1,000 ML IV SCH (23:34)
[2019-10-20] VITALS: BP 123/68
[2019-10-20] MEDS: IPRATROPIUM/ALBUTEROL 0.5-3(2.5)MG/3ML NEB NEB SCH ×3 (00:49→14:38)
[2019-10-20 04:00] VITALS: BP 114/70
[2019-10-20] MEDS: BLOOD SUGAR DIAGNOSTIC STRIP TEST SCH ×3 (06:10→16:40)
[2019-10-20] MEDS: INSULIN LISPRO 100 UNITS/ML SUBCUT SCH ×3 (06:28→17:03)
[2019-10-20 08:00] VITALS: BP 130/76
[2019-10-20] MEDS: PANTOPRAZOLE SODIUM 40 MG/VIAL IV SCH (08:29)
[2019-10-20] MEDS: BUDESONIDE 0.5MG/2ML NEB HHN SCH (08:53)
[2019-10-20 12:00] VITALS: BP 125/76
[2019-10-20] MEDS ORDERED: METHYLPREDNISOLONE SOD SUCC 40 MG/ML VIAL IV SCH (13:00)
[2019-10-20] MEDS ORDERED: P20 PO (13:02)
[2019-10-20] MEDS ORDERED: PROT40 MT (13:02)
[2019-10-20] MEDS ORDERED: ALBU90AE INH (13:02)
[2019-10-20] MEDS ORDERED: AMOX-424 MT (13:02)
[2019-10-20 14:30] LABS: HEMATOCRIT 28.2 % (42.0-52.0); MEAN CORPUSCULAR HEMOGLOBIN 26.2 pg (28.0-32.0); MEAN CORPUSCULAR VOLUME 82.6 fL (80.0-94.0); PLATELET 447 x1000/uL (130-400); RED BLOOD CELL COUNT 3.42 mill/uL (4.7-6.1); RED CELL DISTRIBUTION WIDTH 16.5 % (11.6-14.6)
[2019-10-20 14:43] LABS: CHLORIDE 104 mEq/L (98-107)
[2019-10-20] MEDS ORDERED: AMOXICILLIN/POTASSIUM CLAVULANATE 500/125MG TAB PO SCH ×2 (15:00→22:00)
[2019-10-20 16:49] VITALS: BP 122/69
== END 2019-10-20 18:20 | disposition home or self-care (01) | DRG 205 ==
LOC: ER 16:51 → 5WST 19:07 → EDBEDREQ 19:16 → ENRESERV 22:45
PROVIDERS: ADMIT Internal Medicine; ATTEND Internal Medicine
PROC: 30233N1 Transfusion of Nonautologous Red Blood Cells into Peripheral Vein, Percutaneous Approach (ICD-10-PCS; principal; 2019-10-17)
DX: M94.0 Chondrocostal junction syndrome [Tietze] (principal); J18.9 Pneumonia, unspecified organism; J44.1 Chronic obstructive pulmonary disease with (acute) exacerbation; I50.20 Unspecified systolic (congestive) heart failure; J98.11 Atelectasis; J44.0 Chronic obstructive pulmonary disease with (acute) lower respiratory infection; E44.0 Moderate protein-calorie malnutrition; I11.0 Hypertensive heart disease with heart failure; R07.89 Other chest pain; N28.1 Cyst of kidney, acquired; I25.10 Atherosclerotic heart disease of native coronary artery without angina pectoris; E11.9 Type 2 diabetes mellitus without complications; D72.829 Elevated white blood cell count, unspecified; K75.3 Granulomatous hepatitis, not elsewhere classified; D73.89 Other diseases of spleen; E78.5 Hyperlipidemia, unspecified; E87.5 Hyperkalemia; N40.0 Benign prostatic hyperplasia without lower urinary tract symptoms; Z86.718 Personal history of other venous thrombosis and embolism; Z87.891 Personal history of nicotine dependence; Z79.899 Other long term (current) drug therapy; Z79.82 Long term (current) use of aspirin; D63.8 Anemia in other chronic diseases classified elsewhere
CPT/HCPCS: 36415; 71045; 74176; 74177; 80048; 80053; 80061; 80305; 81003; 82270; 82550; 82553; 82962; 83540; 83550; 83880; 84153; 84439; 84443; 84484; 85014; 85018; 85025; 85027; 85044; 86301; 86850; 86900; 86920; 93005; 93970; 94640; 96365; 96375; 97162; 99291; C9113; J1815; J1940; J2920; J7620; J7626; P9016; Q9963; Q9967; G0103

== ENCOUNTER 2019-11-20 20:25 | Inpatient (IN) | payer MEDICARE, OTHER ==
[~2019-11-20] VITALS: Ht 185.4 cm; Wt 70.3 kg
[~2019-11-20 20:25] MED LIST changes: +ALBU90AE INH; +AMOX-424 MT; -APIX5TAB MT; -CLOP75TA15 MT; +METF-414 MT; +P20 PO; +PROT40 MT
[2019-11-20] MEDS ORDERED: IPRATROPIUM BROMIDE (0.02%) 0.5MG/2.5ML NEB HHN STA (23:02)
[2019-11-20] MEDS ORDERED: ALBUTEROL (0.083%) 2.5MG/3ML NEB HHN STA (23:02)
[2019-11-20] MEDS ORDERED: MAGNESIUM 2 G PREMIX 50 ML IV ONE (23:15)
[2019-11-20 23:38] LABS: BASOPHILS % 0.7 % (0.0-2.0); EOSINOPHILS % 1.5 % (0.0-5.0); HEMATOCRIT. 28.2 % (42.0-52.0); HEMOGLOBIN. 8.5 g/dL (14.0-18.0); LYMPHOCYTES % 8.5 % (20.0-50.0); MEAN CORPUSCULAR HEMOGLOBIN 23.8 pg (28.0-32.0); MEAN CORPUSCULAR VOLUME 79.4 fL (80.0-94.0); MEAN PLATELET VOLUME 7.2 fl (7.4-10.4); MONOCYTES % 10.6 % (2.0-8.0); NEUTROPHILS % 78.7 % (40.0-76.0); PLATELET 742 x1000/uL (130-400); RED BLOOD CELL COUNT 3.55 mill/uL (4.7-6.1); RED CELL DISTRIBUTION WIDTH 17.3 % (11.6-14.6)
[2019-11-20 23:54] LABS: CHLORIDE 107 mEq/L (98-107)
[2019-11-21] MEDS ORDERED: AZITHROMYCIN 500 MG in DEXT 5% WATER 250 ML IV SCH (00:15)
[2019-11-21] MEDS ORDERED: PIPERACILLIN/TAZOBACTAM 3.375GM/50ML PREMIX IV ONE (00:15)
[2019-11-21] MEDS ORDERED: VANCOMYCIN 1 G PREMIX 200 ML IV SCH (00:15)
[2019-11-21] MEDS ORDERED: PIPERACILLIN/TAZ 3.375G PREMIX 50 ML IV NR (01:30)
[2019-11-21 15:30] VITALS: BP 131/78
[2019-11-21 16:00] VITALS: BP 131/78
[2019-11-21] MEDS ORDERED: DEXTROSE 50% WATER 50ML SYRINGE IV PRN (16:45)
[2019-11-21] MEDS ORDERED: ACETAMINOPHEN 325MG TABLET PO PRN (17:00)
[2019-11-21] MEDS: INSULIN LISPRO 100 UNITS/ML SUBCUT SCH ×2 (17:15→20:31)
[2019-11-21] MEDS: BLOOD SUGAR DIAGNOSTIC STRIP TEST SCH ×2 (17:36→20:31)
[2019-11-21] MEDS ORDERED: IPRATROPIUM/ALBUTEROL 0.5-3(2.5)MG/3ML NEB HHN PRN (18:30)
[2019-11-21] MEDS: ASPIRIN 81MG TABLET PO SCH (18:37)
[2019-11-21] MEDS: PREDNISONE 20MG TABLET PO SCH (18:37)
[2019-11-21] MEDS: PANTOPRAZOLE 40MG DR TABLET PO SCH (18:37)
[2019-11-21] MEDS: TAMSULOSIN HCL 0.4MG SR CAPSULE PO SCH (18:39)
[2019-11-21] MEDS: METFORMIN HCL 500MG TABLET PO SCH (18:39)
[2019-11-21 20:00] VITALS: BP 108/63
[2019-11-21] MEDS: ATORVASTATIN CALCIUM 40MG TABLET PO SCH (20:25)
[2019-11-21] MEDS: CEFTRIAXONE 2 G in DEXTROSE 5% WATER 50 ML IV SCH (20:39)
[2019-11-21] MEDS: IPRATROPIUM/ALBUTEROL 0.5-3(2.5)MG/3ML NEB HHN SCH (21:19)
[2019-11-22] VITALS: BP 94/57
[2019-11-22] MEDS: IPRATROPIUM/ALBUTEROL 0.5-3(2.5)MG/3ML NEB HHN SCH ×3 (02:16→20:44)
[2019-11-22 04:00] VITALS: BP 103/68
[2019-11-22] MEDS: PANTOPRAZOLE 40MG DR TABLET PO SCH (06:06)
[2019-11-22] MEDS: AZITHROMYCIN 500 MG in DEXT 5% WATER 250 ML IV SCH (06:06)
[2019-11-22] MEDS: BLOOD SUGAR DIAGNOSTIC STRIP TEST SCH ×4 (06:06→20:20)
[2019-11-22] MEDS: INSULIN LISPRO 100 UNITS/ML SUBCUT SCH ×4 (06:28→20:34)
[2019-11-22] MEDS: METFORMIN HCL 500MG TABLET PO SCH ×2 (06:44→17:45)
[2019-11-22 06:46] LABS: CHLORIDE 100 mEq/L (98-107)
[2019-11-22 07:00] LABS: FERRITIN 36 ng/mL (22-322)
[2019-11-22 07:02] LABS: BASOPHILS % 0.3 % (0.0-2.0); HEMATOCRIT. 24.4 % (42.0-52.0); HEMOGLOBIN. 7.8 g/dL (14.0-18.0); LYMPHOCYTES % 13.4 % (20.0-50.0); MEAN CORPUSCULAR HEMOGLOBIN 24.7 pg (28.0-32.0); MEAN CORPUSCULAR VOLUME 77.2 fL (80.0-94.0); MEAN PLATELET VOLUME 7.3 fl (7.4-10.4); MONOCYTES % 2.9 % (2.0-8.0); NEUTROPHILS % 83.4 % (40.0-76.0); PLATELET 649 x1000/uL (130-400); RED BLOOD CELL COUNT 3.16 mill/uL (4.7-6.1); RED CELL DISTRIBUTION WIDTH 17.3 % (11.6-14.6)
[2019-11-22 07:03] LABS: TOTAL IRON BINDING CAPACITY 230 ug/dL (250-450)
[2019-11-22 07:12] LABS: VITAMIN B12 SERUM 390 pg/mL (211-911)
[2019-11-22 07:17] LABS: BG BASE EXCESS 2.9 mmol/L (-2.0-2.0); BG CARBOXYHEMOGLOBIN 0.2 % (0.5-1.5); BG DEOXYHEMOGLOBIN 2.1 % (0.0-5.0); BG HCO3 ACT 28.8 mmol/L (22.0-26.0); BG METHEMOGLOBIN 0.1 % (0.0-1.5); BG OXYGEN SATURATION 97.9 % (92.0-98.5); BG OXYHEMOGLOBIN 97.6 % (94.0-97.0); BG PCO2 51.8 mmHg (35.0-45.0); BG PH 7.363 (7.350-7.450); BG PO2 114.5 mmHg (75.0-100.0); BG SAMPLE SITE RIGHT BRACHIAL; BG TOTAL HEMOGLOBIN 8.1 g/dL (12.0-18.0); BG VENT MODE NASAL CANNULA
[2019-11-22 08:00] VITALS: BP 90/58
[2019-11-22] MEDS: ASPIRIN 81MG TABLET PO SCH (08:02)
[2019-11-22] MEDS: PREDNISONE 20MG TABLET PO SCH (08:02)
[2019-11-22] MEDS: ENOXAPARIN 40MG/0.4ML SYR SUBCUT SCH (08:03)
[2019-11-22] MEDS: TAMSULOSIN HCL 0.4MG SR CAPSULE PO SCH (08:03)
[2019-11-22] MEDS: GUAIFENESIN 200MG/10ML SUGAR FREE UDC PO PRN (09:54)
[2019-11-22] MEDS ORDERED: SODIUM POLYSTYRENE SULFONATE 15 G/60 ML BOT PO SCH (11:00)
[2019-11-22] MEDS: GUAIFENESIN 600MG ER TABLET PO SCH ×2 (11:36→20:26)
[2019-11-22 12:00] VITALS: BP 128/68
[2019-11-22 16:00] VITALS: BP 123/76
[2019-11-22 17:57] LABS: CHLORIDE 98 mEq/L (98-107)
[2019-11-22 20:00] VITALS: BP 122/77
[2019-11-22] MEDS: CEFTRIAXONE 2 G in DEXTROSE 5% WATER 50 ML IV SCH (20:26)
[2019-11-22] MEDS: ATORVASTATIN CALCIUM 40MG TABLET PO SCH (20:26)
[2019-11-22] MEDS ORDERED: SODIUM POLYSTYRENE SULFONATE 15 G/60 ML BOT PO NR (21:00)
[2019-11-23] VITALS: BP 124/78
[2019-11-23] MEDS: INSULIN LISPRO 100 UNITS/ML SUBCUT SCH ×5 (00:50→21:00)
[2019-11-23 04:00] VITALS: BP 118/80
[2019-11-23] MEDS: GUAIFENESIN 200MG/10ML SUGAR FREE UDC PO PRN ×2 (05:29→12:48)
[2019-11-23] MEDS: AZITHROMYCIN 500 MG in DEXT 5% WATER 250 ML IV SCH (05:32)
[2019-11-23] MEDS: BLOOD SUGAR DIAGNOSTIC STRIP TEST SCH ×4 (06:09→21:43)
[2019-11-23] MEDS: PANTOPRAZOLE 40MG DR TABLET PO SCH (06:15)
[2019-11-23] MEDS: METFORMIN HCL 500MG TABLET PO SCH ×2 (06:15→17:47)
[2019-11-23] MEDS: DILTIAZEM HCL 60MG TABLET PO SCH ×3 (06:58→17:47)
[2019-11-23 07:47] LABS: CHLORIDE 98 mEq/L (98-107)
[2019-11-23 08:00] VITALS: BP 123/77
[2019-11-23] MEDS: IPRATROPIUM/ALBUTEROL 0.5-3(2.5)MG/3ML NEB HHN SCH ×3 (08:55→21:53)
[2019-11-23] MEDS: GUAIFENESIN 600MG ER TABLET PO SCH ×2 (09:24→21:08)
[2019-11-23] MEDS: TAMSULOSIN HCL 0.4MG SR CAPSULE PO SCH (09:25)
[2019-11-23] MEDS: PREDNISONE 20MG TABLET PO SCH (09:25)
[2019-11-23] MEDS: ENOXAPARIN 40MG/0.4ML SYR SUBCUT SCH (09:25)
[2019-11-23] MEDS: ASPIRIN 81MG TABLET PO SCH (09:26)
[2019-11-23 12:00] VITALS: BP 116/72
[2019-11-23 16:00] VITALS: BP 97/62
[2019-11-23] MEDS: FUROSEMIDE 40MG/4ML VIAL IVP SCH (18:53)
[2019-11-23 20:00] VITALS: BP 107/65
[2019-11-23] MEDS: ATORVASTATIN CALCIUM 40MG TABLET PO SCH (21:08)
[2019-11-23] MEDS: CEFTRIAXONE 2 G in DEXTROSE 5% WATER 50 ML IV SCH (21:18)
[2019-11-23] MEDS ORDERED: INSULIN GLARGINE UD 100 UNITS/ML SYR SUBCUT SCH (22:00)
[2019-11-24] MEDS: GUAIFENESIN 200MG/10ML SUGAR FREE UDC PO PRN (00:21)
[2019-11-24] MEDS: DILTIAZEM HCL 60MG TABLET PO SCH ×3 (00:23→13:32)
[2019-11-24] MEDS: IPRATROPIUM/ALBUTEROL 0.5-3(2.5)MG/3ML NEB HHN SCH ×3 (02:14→14:44)
[2019-11-24 04:00] VITALS: BP 130/70
[2019-11-24] MEDS: AZITHROMYCIN 500 MG in DEXT 5% WATER 250 ML IV SCH (06:39)
[2019-11-24] MEDS: METFORMIN HCL 500MG TABLET PO SCH (06:49)
[2019-11-24] MEDS: METHYLPREDNISOLONE SOD SUCC 40 MG/ML VIAL IV SCH ×2 (06:49→14:05)
[2019-11-24] MEDS: PANTOPRAZOLE 40MG DR TABLET PO SCH (06:49)
[2019-11-24] MEDS: BLOOD SUGAR DIAGNOSTIC STRIP TEST SCH ×2 (07:06→11:53)
[2019-11-24] MEDS: INSULIN LISPRO 100 UNITS/ML SUBCUT SCH ×2 (07:08→13:36)
[2019-11-24 07:19] LABS: BASOPHILS % 0.2 % (0.0-2.0); EOSINOPHILS % 0.1 % (0.0-5.0); HEMATOCRIT. 25.1 % (42.0-52.0); HEMOGLOBIN. 7.8 g/dL (14.0-18.0); LYMPHOCYTES % 21.4 % (20.0-50.0); MEAN CORPUSCULAR HEMOGLOBIN 23.6 pg (28.0-32.0); MEAN CORPUSCULAR VOLUME 76.1 fL (80.0-94.0); MEAN PLATELET VOLUME 7.5 fl (7.4-10.4); MONOCYTES % 9.7 % (2.0-8.0); NEUTROPHILS % 68.6 % (40.0-76.0); PLATELET 665 x1000/uL (130-400); RED BLOOD CELL COUNT 3.29 mill/uL (4.7-6.1); RED CELL DISTRIBUTION WIDTH 17.1 % (11.6-14.6)
[2019-11-24 07:20] LABS: CHLORIDE 97 mEq/L (98-107)
[2019-11-24 08:00] VITALS: BP 104/67
[2019-11-24] MEDS: ASPIRIN 81MG TABLET PO SCH (09:34)
[2019-11-24] MEDS: FUROSEMIDE 40MG/4ML VIAL IVP SCH (09:34)
[2019-11-24] MEDS: TAMSULOSIN HCL 0.4MG SR CAPSULE PO SCH (09:34)
[2019-11-24] MEDS: GUAIFENESIN 600MG ER TABLET PO SCH (09:37)
[2019-11-24] MEDS ORDERED: INSULIN GLARGINE UD 100 UNITS/ML SYR SUBCUT SCH (10:00)
[2019-11-24 12:00] VITALS: BP 97/57
[2019-11-24] MEDS ORDERED: FERROUS SULFATE 325MG TABLET PO SCH (12:15)
[2019-11-24] MEDS ORDERED: P20 PO (14:51)
[2019-11-24] MEDS ORDERED: ALBU05 NEB (14:51)
[2019-11-24] MEDS ORDERED: FURO-151 MT (14:51)
[2019-11-24] MEDS ORDERED: FERR325T23 MT (14:51)
[2019-11-24 15:23] VITALS: BP 101/63
== END 2019-11-24 16:15 | disposition home or self-care (01) | DRG 871 ==
LOC: ER 20:25 → 5WST 11-21 04:43 → ENRESERV 11-21 14:34
PROVIDERS: ADMIT Internal Medicine; ATTEND Internal Medicine
DX: A41.9 Sepsis, unspecified organism (principal); J96.20 Acute and chronic respiratory failure, unspecified whether with hypoxia or hypercapnia; J44.1 Chronic obstructive pulmonary disease with (acute) exacerbation; E87.1 Hypo-osmolality and hyponatremia; E44.0 Moderate protein-calorie malnutrition; D64.9 Anemia, unspecified; E11.9 Type 2 diabetes mellitus without complications; E87.5 Hyperkalemia; I11.0 Hypertensive heart disease with heart failure; I50.9 Heart failure, unspecified; E11.65 Type 2 diabetes mellitus with hyperglycemia; I25.10 Atherosclerotic heart disease of native coronary artery without angina pectoris; N40.0 Benign prostatic hyperplasia without lower urinary tract symptoms; Z86.718 Personal history of other venous thrombosis and embolism; Z87.891 Personal history of nicotine dependence; Z99.81 Dependence on supplemental oxygen; Z79.82 Long term (current) use of aspirin; Z79.84 Long term (current) use of oral hypoglycemic drugs; Z79.899 Other long term (current) drug therapy; J06.9 Acute upper respiratory infection, unspecified; Z68.20 Body mass index [BMI] 20.0-20.9, adult
CPT/HCPCS: 36415; 36600; 71045; 80048; 80053; 82270; 82375; 82607; 82728; 82805; 82962; 83540; 83550; 83605; 83880; 84443; 84484; 85025; 86850; 86900; 87070; 87804; 93005; 94640; 96365; 97162; 99291; J0456; J0696; J1650; J1815; J1940; J2543; J2920; J3370; J3475; J7060; J7512

== ENCOUNTER 2020-02-26 05:39 | Inpatient (IN) | payer OTHER ==
[~2020-02-26] VITALS: Ht 185.4 cm; Wt 65.0 kg
[~2020-02-26 05:39] MED LIST changes: +ALBU05 NEB; -AMOX-424 MT; +FERR325T23 MT; +FURO-151 MT
[2020-02-26] MEDS ORDERED: ALBUTEROL 6.7GM HFA INHALER ORI ONE (06:30)
[2020-02-26] MEDS ORDERED: LEVOFLOXACIN 500MG PREMIX 100 ML IV ONE (06:30)
[2020-02-26 06:43] LABS: EOSINOPHILS % 6.1 % (0.0-5.0); HEMATOCRIT. 24.2 % (42.0-52.0); HEMOGLOBIN. 7.3 g/dL (14.0-18.0); LYMPHOCYTES % 16.4 % (20.0-50.0); MEAN CORPUSCULAR HEMOGLOBIN 22.9 pg (28.0-32.0); MEAN CORPUSCULAR VOLUME 75.7 fL (80.0-94.0); MEAN PLATELET VOLUME 7.2 fl (7.4-10.4); MONOCYTES % 7.8 % (2.0-8.0); NEUTROPHILS % 68.7 % (40.0-76.0); PLATELET 378 x1000/uL (130-400); RED CELL DISTRIBUTION WIDTH 22.6 % (11.6-14.6)
[2020-02-26 06:49] LABS: CHLORIDE 109 mEq/L (98-107)
[2020-02-26 06:54] LABS: D-DIMER 0.64 mg/L FEU (<0.50); PROTHROMBIN TIME 11.1 sec (9.6-11.0)
[2020-02-26 06:59] LABS: CREATINE KINASE 51 IU/L (39-308)
[2020-02-26] MEDS ORDERED: FUROSEMIDE 20MG/2ML VIAL IVP ONE (07:00)
[2020-02-26 07:15] LABS: PLATELET ESTIMATE NORMAL
[2020-02-26 09:52] LABS: CLARITY URINE CLEAR (CLEAR); COLOR URINE YELLOW (YELLOW); KETONES URINE NEGATIVE (NEGATIVE); LEUKOCYTE ESTERASE URINE NEGATIVE (NEGATIVE); NITRITE URINE NEGATIVE (NEGATIVE); OCCULT BLOOD URINE NEGATIVE (NEGATIVE); PROTEIN URINE TRACE (NEGATIVE); SPECIFIC GRAVITY URINE 1.015 (1.005-1.030); UROBILINOGEN URINE 0.2 E.U./dL (0.2-1.0)
[2020-02-26] MEDS ORDERED: ACETAMINOPHEN 325MG TABLET PO PRN (13:30)
[2020-02-26] MEDS ORDERED: ACETAMINOPHEN 650MG SUPP PR PRN (13:30)
[2020-02-26] MEDS ORDERED: ONDANSETRON HCL 4MG/2ML INJ IV PRN (13:30)
[2020-02-26] MEDS ORDERED: LORAZEPAM 0.5MG TABLET PO PRN (13:30)
[2020-02-26] MEDS ORDERED: CLONIDINE 0.1MG TABLET PO PRN (13:30)
[2020-02-26] MEDS ORDERED: HYDROCODONE/ACETAMINOPHEN 5/325MG TABLET PO PRN (13:30)
[2020-02-26] MEDS ORDERED: IPRATROPIUM/ALBUTEROL 0.5-3(2.5)MG/3ML NEB NEB PRN (13:30)
[2020-02-26] MEDS ORDERED: NA PHOS,M-B/NA PHOS,DI-BA ENEMA 118ML PR PRN (13:30)
[2020-02-26] MEDS ORDERED: DOCUSATE SODIUM 100MG CAPSULE PO PRN (13:30)
[2020-02-26] MEDS ORDERED: CEFTRIAXONE 1 G PREMIX 50 ML IV ONE (13:30)
[2020-02-26] MEDS ORDERED: MAGNESIUM/ALUMINUM HYDROXIDE/SIMETHICONE 30ML UDC PO PRN (13:30)
[2020-02-26] MEDS ORDERED: METHYLPREDNISOLONE SOD SUCC 40 MG/ML VIAL IV SCH (13:30)
[2020-02-26] MEDS ORDERED: AZITHROMYCIN 500 MG in DEXT 5% WATER 250 ML IV SCH (13:30)
[2020-02-26] MEDS ORDERED: DIPHENHYDRAMINE 50MG/ML VIAL IV PRN (13:30)
[2020-02-26] MEDS ORDERED: CEFTRIAXONE 1 G PREMIX 50 ML IV SCH (13:30)
[2020-02-26] MEDS ORDERED: FUROSEMIDE 20MG/2ML VIAL IVP NR (13:45)
[2020-02-26] MEDS: PANTOPRAZOLE SODIUM 40 MG/VIAL IV SCH (13:59)
[2020-02-26] MEDS ORDERED: BUDESONIDE 0.5MG/2ML NEB HHN SCH (14:00)
[2020-02-26] MEDS ORDERED: AZITHROMYCIN 500 MG in DEXT 5% WATER 250 ML IV ONE (14:00)
[2020-02-26 14:48] LABS: BG BASE EXCESS 0.9 mmol/L (-2.0-2.0); BG CARBOXYHEMOGLOBIN 0.6 % (0.5-1.5); BG DEOXYHEMOGLOBIN 3.4 % (0.0-5.0); BG FRACTION INSPIRED OXYGEN 28; BG HCO3 ACT 25.4 mmol/L (22.0-26.0); BG METHEMOGLOBIN 0.1 % (0.0-1.5); BG OXYGEN SATURATION 96.6 % (92.0-98.5); BG OXYHEMOGLOBIN 95.9 % (94.0-97.0); BG PCO2 39.8 mmHg (35.0-45.0); BG PH 7.423 (7.350-7.450); BG PO2 87.3 mmHg (75.0-100.0); BG SAMPLE SITE RIGHT BRACHIAL; BG TOTAL HEMOGLOBIN 8.5 g/dL (12.0-18.0); BG VENT MODE NASAL CANNULA
[2020-02-26] MEDS ORDERED: SODIUM CHLORIDE 0.9% 250 ML IV ONE (15:15)
[2020-02-26] MEDS: DEXT 5%/0.45% NACL 1000ML 1,000 ML IV SCH (16:14)
[2020-02-26] MEDS: GUAIFENESIN 200MG/10ML SUGAR FREE UDC PO PRN (16:16)
[2020-02-26] MEDS: METFORMIN HCL 500MG TABLET PO SCH (17:49)
[2020-02-26] MEDS: FERROUS SULFATE 325MG TABLET PO SCH (17:49)
[2020-02-26 18:37] LABS: CREATINE KINASE 53 IU/L (39-308)
[2020-02-26 18:39] LABS: CREATINE KINASE MB FRACTION 1.1 ng/mL (0.5-3.6)
[2020-02-26 19:26] LABS: HEMATOCRIT 28.1 % (42.0-52.0); MEAN CORPUSCULAR HEMOGLOBIN 24.3 pg (28.0-32.0); MEAN CORPUSCULAR VOLUME 76.1 fL (80.0-94.0); PLATELET 369 x1000/uL (130-400); RED BLOOD CELL COUNT 3.69 mill/uL (4.7-6.1); RED CELL DISTRIBUTION WIDTH 22.9 % (11.6-14.6)
[2020-02-26 19:44] LABS: INR 1.1; PROTHROMBIN TIME 11.9 sec (9.6-11.0)
[2020-02-27] VITALS (13 sets, daily range): BP systolic 53–124; BP diastolic 24–100
[2020-02-27 00:53] LABS: CREATINE KINASE 51 IU/L (39-308); CREATINE KINASE MB FRACTION 1.1 ng/mL (0.5-3.6)
[2020-02-27] MEDS: METHYLPREDNISOLONE SOD SUCC 40 MG/ML VIAL IV SCH ×2 (02:52→22:01)
[2020-02-27] MEDS ORDERED: IOHEXOL-350 100 ML BOTTLE ONE (02:59)
[2020-02-27] MEDS: DEXT 5%/0.45% NACL 1000ML 1,000 ML IV SCH ×2 (04:19→19:05)
[2020-02-27 08:19] LABS: *AMPHETAMINES SCREEN URINE NEGATIVE (NEGATIVE); *BARBITURATES SCREEN URINE NEGATIVE (NEGATIVE); *BENZODIAZEPINES SCREEN URINE NEGATIVE (NEGATIVE); *COCAINE SCREEN URINE NEGATIVE (NEGATIVE)
[2020-02-27 08:20] LABS: CANNABINOID URINE SCREEN NEGATIVE (NEGATIVE); METHADONE URINE SCREEN NEGATIVE (NEGATIVE); OPIATES URINE SCREEN NEGATIVE (NEGATIVE); PHENCYCLIDINE URINE SCREEN NEGATIVE (NEGATIVE)
[2020-02-27 08:51] LABS: CHLORIDE 104 mEq/L (98-107)
[2020-02-27] MEDS: METFORMIN HCL 500MG TABLET PO SCH ×2 (08:51→16:44)
[2020-02-27] MEDS: FINASTERIDE 5MG TABLET PO SCH (08:51)
[2020-02-27] MEDS: TAMSULOSIN HCL 0.4MG SR CAPSULE PO SCH (08:51)
[2020-02-27 08:52] LABS: BASOPHILS % 0.4 % (0.0-2.0); EOSINOPHILS % 0.2 % (0.0-5.0); HEMATOCRIT. 28.5 % (42.0-52.0); HEMOGLOBIN. 9.1 g/dL (14.0-18.0); MEAN CORPUSCULAR HEMOGLOBIN 24.2 pg (28.0-32.0); MEAN CORPUSCULAR VOLUME 76.3 fL (80.0-94.0); MONOCYTES % 1.8 % (2.0-8.0); NEUTROPHILS % 84.6 % (40.0-76.0); PLATELET 416 x1000/uL (130-400); RED BLOOD CELL COUNT 3.74 mill/uL (4.7-6.1); RED CELL DISTRIBUTION WIDTH 22.3 % (11.6-14.6)
[2020-02-27] MEDS: FERROUS SULFATE 325MG TABLET PO SCH ×3 (08:52→16:44)
[2020-02-27] MEDS: PANTOPRAZOLE SODIUM 40 MG/VIAL IV SCH (08:52)
[2020-02-27] MEDS: FUROSEMIDE 40MG/4ML VIAL IVP SCH (08:52)
[2020-02-27 09:03] LABS: LDL CHOLESTEROL 30 mg/dL (5-100)
[2020-02-27 09:05] LABS: HDL CHOLESTEROL 60 mg/dL (40-59); T4 FREE 1.12 ng/dL (0.76-1.46)
[2020-02-27] MEDS ORDERED: INSULIN REGULAR (HUMULIN R) UD 100 UNITS/ML SYR IV SCH (12:00)
[2020-02-27] MEDS ORDERED: SODIUM POLYSTYRENE SULFONATE 15 G/60 ML BOT PO SCH (12:00)
[2020-02-27] MEDS ORDERED: CALCIUM GLUCONATE 1,000 MG in DEXT 5% WATER 90 ML IV SCH (12:00)
[2020-02-27] MEDS ORDERED: SODIUM BICARBONATE 8.4% 1 MEQ/ML 50ML SYR IV SCH (12:00)
[2020-02-27] MEDS ORDERED: DEXTROSE 50% WATER 50ML SYRINGE IV SCH (12:00)
[2020-02-27] MEDS: GUAIFENESIN 200MG/10ML SUGAR FREE UDC PO PRN ×2 (12:16→20:22)
[2020-02-27] MEDS: CEFTRIAXONE 1 G PREMIX 50 ML IV SCH (14:00)
[2020-02-27] MEDS: AZITHROMYCIN 250 MG in DEXT 5% WATER 250 ML IV SCH (16:37)
[2020-02-27 17:28] LABS: CHLORIDE 104 mEq/L (98-107)
[2020-02-27] MEDS: ATORVASTATIN CALCIUM 40MG TABLET PO SCH (22:00)
[2020-02-28] VITALS (10 sets, daily range): BP systolic 103–127; BP diastolic 58–81
[2020-02-28 06:23] LABS: HEMATOCRIT 27.5 % (42.0-52.0); HEMOGLOBIN 8.6 g/dL (14.0-18.0); MEAN CORPUSCULAR HEMOGLOBIN 23.7 pg (28.0-32.0); MEAN CORPUSCULAR VOLUME 76.2 fL (80.0-94.0); PLATELET 411 x1000/uL (130-400); RED BLOOD CELL COUNT 3.61 mill/uL (4.7-6.1); RED CELL DISTRIBUTION WIDTH 22.1 % (11.6-14.6)
[2020-02-28] MEDS: GUAIFENESIN 200MG/10ML SUGAR FREE UDC PO PRN ×2 (06:23→20:20)
[2020-02-28] MEDS: METFORMIN HCL 500MG TABLET PO SCH ×2 (06:23→17:36)
[2020-02-28] MEDS: FERROUS SULFATE 325MG TABLET PO SCH ×3 (06:23→17:36)
[2020-02-28 06:26] LABS: CHLORIDE 101 mEq/L (98-107)
[2020-02-28] MEDS: PANTOPRAZOLE SODIUM 40 MG/VIAL IV SCH (08:22)
[2020-02-28] MEDS: TAMSULOSIN HCL 0.4MG SR CAPSULE PO SCH (08:23)
[2020-02-28] MEDS: FUROSEMIDE 40MG/4ML VIAL IVP SCH (08:23)
[2020-02-28] MEDS: METHYLPREDNISOLONE SOD SUCC 40 MG/ML VIAL IV SCH ×2 (08:24→20:07)
[2020-02-28] MEDS: FINASTERIDE 5MG TABLET PO SCH (08:24)
[2020-02-28] MEDS: ENOXAPARIN 40MG/0.4ML SYR SUBCUT SCH ×2 (10:06→11:03)
[2020-02-28] MEDS: DEXT 5%/0.45% NACL 1000ML 1,000 ML IV SCH (11:04)
[2020-02-28] MEDS ORDERED: DEXTROSE 50% WATER 50ML SYRINGE IV PRN (12:00)
[2020-02-28] MEDS: INSULIN LISPRO 100 UNITS/ML SUBCUT SCH ×3 (12:24→20:31)
[2020-02-28] MEDS: CEFTRIAXONE 1 G PREMIX 50 ML IV SCH (14:00)
[2020-02-28] MEDS: AZITHROMYCIN 250 MG in DEXT 5% WATER 250 ML IV SCH (16:00)
[2020-02-28] MEDS: BLOOD SUGAR DIAGNOSTIC STRIP TEST SCH ×2 (16:41→20:07)
[2020-02-28 17:42] LABS: CHLORIDE 99 mEq/L (98-107)
[2020-02-28] MEDS: ATORVASTATIN CALCIUM 40MG TABLET PO SCH (20:07)
[2020-02-29] VITALS (10 sets, daily range): BP systolic 101–124; BP diastolic 54–78
[2020-02-29] MEDS: IPRATROPIUM/ALBUTEROL 0.5-3(2.5)MG/3ML NEB HHN SCH ×3 (01:38→14:18)
[2020-02-29] MEDS: BLOOD SUGAR DIAGNOSTIC STRIP TEST SCH ×2 (06:52→12:29)
[2020-02-29 07:43] LABS: HEMATOCRIT 28.5 % (42.0-52.0); HEMOGLOBIN 8.9 g/dL (14.0-18.0); MEAN CORPUSCULAR HEMOGLOBIN 23.9 pg (28.0-32.0); MEAN CORPUSCULAR VOLUME 76.5 fL (80.0-94.0); PLATELET 429 x1000/uL (130-400); RED BLOOD CELL COUNT 3.72 mill/uL (4.7-6.1); RED CELL DISTRIBUTION WIDTH 22.5 % (11.6-14.6)
[2020-02-29 08:01] LABS: CHLORIDE 99 mEq/L (98-107)
[2020-02-29] MEDS: FINASTERIDE 5MG TABLET PO SCH (08:37)
[2020-02-29] MEDS: TAMSULOSIN HCL 0.4MG SR CAPSULE PO SCH (08:37)
[2020-02-29] MEDS: FERROUS SULFATE 325MG TABLET PO SCH ×2 (08:37→12:35)
[2020-02-29] MEDS: METFORMIN HCL 500MG TABLET PO SCH (08:37)
[2020-02-29] MEDS: INSULIN LISPRO 100 UNITS/ML SUBCUT SCH ×2 (08:38→12:36)
[2020-02-29] MEDS: FUROSEMIDE 40MG/4ML VIAL IVP SCH (08:38)
[2020-02-29] MEDS: METHYLPREDNISOLONE SOD SUCC 40 MG/ML VIAL IV SCH (08:38)
[2020-02-29] MEDS: PANTOPRAZOLE SODIUM 40 MG/VIAL IV SCH (08:38)
[2020-02-29] MEDS: ENOXAPARIN 40MG/0.4ML SYR SUBCUT SCH (08:40)
[2020-02-29] MEDS ORDERED: AZITHROMYCIN 250 MG TABLET PO SCH (09:00)
[2020-02-29] MEDS: GUAIFENESIN 200MG/10ML SUGAR FREE UDC PO PRN (09:03)
[2020-02-29] MEDS: CEFTRIAXONE 1 G PREMIX 50 ML IV SCH (14:51)
[2020-02-29] MEDS ORDERED: FUROSEMIDE 40MG/4ML VIAL IVP SCH (21:00)
== END 2020-02-29 17:00 | disposition home or self-care (01) | DRG 190 ==
LOC: ER 05:59 → 3WST 06:28 → EDBEDREQ 06:30 → SUPCPDRO 13:16 → ENRESERV 02-27 00:07 → 3WST 02-27 14:54
PROVIDERS: ADMIT Internal Medicine; ATTEND Internal Medicine
PROC: 30233N1 Transfusion of Nonautologous Red Blood Cells into Peripheral Vein, Percutaneous Approach (ICD-10-PCS; principal; 2020-02-26)
DX: J44.0 Chronic obstructive pulmonary disease with (acute) lower respiratory infection (principal); J18.9 Pneumonia, unspecified organism; E87.1 Hypo-osmolality and hyponatremia; J44.1 Chronic obstructive pulmonary disease with (acute) exacerbation; D64.9 Anemia, unspecified; I11.0 Hypertensive heart disease with heart failure; I25.10 Atherosclerotic heart disease of native coronary artery without angina pectoris; E87.5 Hyperkalemia; I50.9 Heart failure, unspecified; D72.810 Lymphocytopenia; R79.89 Other specified abnormal findings of blood chemistry; N40.0 Benign prostatic hyperplasia without lower urinary tract symptoms; E78.5 Hyperlipidemia, unspecified; R09.02 Hypoxemia; Z86.718 Personal history of other venous thrombosis and embolism; Z99.81 Dependence on supplemental oxygen; Z87.01 Personal history of pneumonia (recurrent); Z03.818 Encounter for observation for suspected exposure to other biological agents ruled out
CPT/HCPCS: 36415; 36600; 71045; 71275; 80048; 80053; 80061; 80305; 81003; 82270; 82375; 82550; 82553; 82728; 82805; 82962; 83036; 83605; 83615; 83880; 84153; 84439; 84443; 84484; 85025; 85027; 85379; 85384; 86140; 86850; 86900; 86920; 87804; 93005; 93306; 93970; 94640; 96365; 97116; 97162; 99291; C9113; J0456; J0610; J0696; J1650; J1815; J1940; J1956; J2920; J3490; J7060; J7626; P9016; Q9967; U0003; G0103

== ENCOUNTER 2020-05-05 06:18 | Inpatient (IN) | payer MEDICARE, OTHER ==
[2020-05-05] VITALS (7 sets, daily range): BP systolic 105–129; BP diastolic 67–78
[~2020-05-05] VITALS: Ht 185.4 cm; Wt 71.7 kg
[~2020-05-05 06:18] MED LIST changes: -ATOR40TA70 MT; -FINA5TAB11 MT; +LEVO500T2 PO; +LIP40 MT; -TAMS-11 MT
[2020-05-05] MEDS ORDERED: MAGNESIUM 2 G PREMIX 50 ML IV STA (06:28)
[2020-05-05] MEDS ORDERED: ALBUTEROL (0.083%) 2.5MG/3ML NEB HHN STA (06:28)
[2020-05-05] MEDS ORDERED: METHYLPREDNISOLONE SOD SUCC 125 MG/2 ML VIAL IV STA (06:28)
[2020-05-05] MEDS ORDERED: IPRATROPIUM BROMIDE (0.02%) 0.5MG/2.5ML NEB HHN STA (06:28)
[2020-05-05] MEDS ORDERED: FUROSEMIDE 20MG/2ML VIAL IVP ONE ×2 (06:30→07:00)
[2020-05-05] MEDS ORDERED: ALBUTEROL (0.083%) 2.5MG/3ML NEB ONE (06:47)
[2020-05-05] MEDS ORDERED: METHYLPREDNISOLONE SOD SUCC 125 MG/2 ML VIAL ONE (06:47)
[2020-05-05] MEDS ORDERED: FUROSEMIDE 40MG/4ML VIAL ONE (06:48)
[2020-05-05] MEDS ORDERED: MAGNESIUM 2 G PREMIX 50 ML IV ONE (06:50)
[2020-05-05] MEDS ORDERED: IPRATROPIUM BROMIDE (0.02%) 0.5MG/2.5ML NEB ONE (07:12)
[2020-05-05] MEDS ORDERED: LEVOFLOXACIN 500MG PREMIX 100 ML IV ONE ×2 (07:15→07:51)
[2020-05-05 07:35] LABS: BASOPHILS % 0.8 % (0.0-2.0); EOSINOPHILS % 5.1 % (0.0-5.0); HEMATOCRIT. 32.2 % (42.0-52.0); HEMOGLOBIN. 9.7 g/dL (14.0-18.0); LYMPHOCYTES % 18.8 % (20.0-50.0); MEAN CORPUSCULAR HEMOGLOBIN 23.8 pg (28.0-32.0); MEAN CORPUSCULAR VOLUME 78.7 fL (80.0-94.0); MEAN PLATELET VOLUME 8.9 fl (7.4-10.4); MONOCYTES % 8.6 % (2.0-8.0); NEUTROPHILS % 66.7 % (40.0-76.0); PLATELET 207 x1000/uL (130-400); RED BLOOD CELL COUNT 4.09 mill/uL (4.7-6.1); RED CELL DISTRIBUTION WIDTH 20.9 % (11.6-14.6)
[2020-05-05 07:39] LABS: CHLORIDE 109 mEq/L (98-107)
[2020-05-05 07:42] LABS: PROTHROMBIN TIME 10.5 sec (9.6-11.0)
[2020-05-05 07:58] LABS: CLARITY URINE CLEAR (CLEAR); COLOR URINE YELLOW (YELLOW); KETONES URINE NEGATIVE (NEGATIVE); LEUKOCYTE ESTERASE URINE NEGATIVE (NEGATIVE); NITRITE URINE NEGATIVE (NEGATIVE); OCCULT BLOOD URINE NEGATIVE (NEGATIVE); PROTEIN URINE 1+ (NEGATIVE); SPECIFIC GRAVITY URINE 1.012 (1.005-1.030); UROBILINOGEN URINE 0.2 E.U./dL (0.2-1.0)
[2020-05-05 08:15] LABS: *AMPHETAMINES SCREEN URINE NEGATIVE (NEGATIVE); *BARBITURATES SCREEN URINE NEGATIVE (NEGATIVE); *BENZODIAZEPINES SCREEN URINE NEGATIVE (NEGATIVE); *COCAINE SCREEN URINE NEGATIVE (NEGATIVE)
[2020-05-05 08:16] LABS: CANNABINOID URINE SCREEN NEGATIVE (NEGATIVE); METHADONE URINE SCREEN NEGATIVE (NEGATIVE); OPIATES URINE SCREEN NEGATIVE (NEGATIVE); PHENCYCLIDINE URINE SCREEN NEGATIVE (NEGATIVE)
[2020-05-05 08:55] LABS: BG BASE EXCESS 1.6 mmol/L (-2.0-2.0); BG BILEVEL POS AIRWAY PRESSURE 15/5; BG CARBOXYHEMOGLOBIN 0.4 % (0.5-1.5); BG DEOXYHEMOGLOBIN 1.7 % (0.0-5.0); BG FRACTION INSPIRED OXYGEN 40; BG HCO3 ACT 27.7 mmol/L (22.0-26.0); BG METHEMOGLOBIN 0.3 % (0.0-1.5); BG OXYGEN SATURATION 98.3 % (92.0-98.5); BG OXYHEMOGLOBIN 97.6 % (94.0-97.0); BG PCO2 50.8 mmHg (35.0-45.0); BG PH 7.354 (7.350-7.450); BG PO2 116.6 mmHg (75.0-100.0); BG SAMPLE SITE RIGHT BRACHIAL; BG TOTAL HEMOGLOBIN 9.5 g/dL (12.0-18.0); BG VENT MODE MASK - BIPAP
[2020-05-05] MEDS ORDERED: DEXTROSE 50% WATER 50ML SYRINGE IV PRN (09:00)
[2020-05-05] MEDS: BLOOD SUGAR DIAGNOSTIC STRIP TEST SCH ×4 (09:00→20:40)
[2020-05-05] MEDS ORDERED: ONDANSETRON HCL 4MG/2ML INJ IV PRN (09:00)
[2020-05-05] MEDS ORDERED: ACETAMINOPHEN 325MG TABLET PO PRN (09:00)
[2020-05-05] MEDS: CARVEDILOL 3.125 MG TABLET PO SCH ×2 (09:00→20:40)
[2020-05-05] MEDS: FUROSEMIDE 40MG/4ML VIAL IVP SCH ×2 (09:00→18:21)
[2020-05-05] MEDS: INSULIN LISPRO 100 UNITS/ML SUBCUT SCH ×3 (13:24→20:42)
[2020-05-05] MEDS: ENOXAPARIN 40MG/0.4ML SYR SUBCUT SCH (14:33)
[2020-05-05] MEDS ORDERED: DIPHENHYDRAMINE 50MG/ML VIAL IV PRN (15:15)
[2020-05-05] MEDS ORDERED: IPRATROPIUM/ALBUTEROL 0.5-3(2.5)MG/3ML NEB HHN PRN (15:15)
[2020-05-05] MEDS ORDERED: HYDRALAZINE 20MG/ML VIAL IV PRN (15:15)
[2020-05-05] MEDS ORDERED: HYDROCODONE/ACETAMINOPHEN 5/325MG TABLET PO PRN (15:15)
[2020-05-05] MEDS ORDERED: LACTULOSE 20G/30ML UDC PO PRN (15:15)
[2020-05-05] MEDS: METHYLPREDNISOLONE SOD SUCC 40 MG/ML VIAL IV SCH (16:45)
[2020-05-05] MEDS: FAMOTIDINE 20MG TABLET PO SCH (20:40)
[2020-05-05] MEDS: IPRATROPIUM/ALBUTEROL 0.5-3(2.5)MG/3ML NEB HHN SCH (20:52)
[2020-05-05] MEDS: BUDESONIDE 0.5MG/2ML NEB HHN SCH (20:57)
[2020-05-06] VITALS (12 sets, daily range): BP systolic 97–120; BP diastolic 59–78
[2020-05-06] MEDS: IPRATROPIUM/ALBUTEROL 0.5-3(2.5)MG/3ML NEB HHN SCH ×6 (00:50→21:34)
[2020-05-06] MEDS: METHYLPREDNISOLONE SOD SUCC 40 MG/ML VIAL IV SCH ×2 (06:12→17:38)
[2020-05-06 06:43] LABS: BASOPHILS % 0.7 % (0.0-2.0); HEMATOCRIT. 26.7 % (42.0-52.0); HEMOGLOBIN. 8.4 g/dL (14.0-18.0); MEAN CORPUSCULAR HEMOGLOBIN 23.8 pg (28.0-32.0); MEAN CORPUSCULAR VOLUME 75.8 fL (80.0-94.0); MEAN PLATELET VOLUME 8.7 fl (7.4-10.4); MONOCYTES % 11.1 % (2.0-8.0); NEUTROPHILS % 59.2 % (40.0-76.0); PLATELET 206 x1000/uL (130-400); RED BLOOD CELL COUNT 3.53 mill/uL (4.7-6.1); RED CELL DISTRIBUTION WIDTH 20.6 % (11.6-14.6)
[2020-05-06 07:19] LABS: CHLORIDE 105 mEq/L (98-107)
[2020-05-06] MEDS: BLOOD SUGAR DIAGNOSTIC STRIP TEST SCH ×4 (07:30→21:43)
[2020-05-06] MEDS: INSULIN LISPRO 100 UNITS/ML SUBCUT SCH ×4 (08:00→21:45)
[2020-05-06] MEDS: CARVEDILOL 3.125 MG TABLET PO SCH ×2 (08:29→21:35)
[2020-05-06] MEDS: LOSARTAN POTASSIUM 25 MG TABLET PO SCH (08:29)
[2020-05-06] MEDS: FUROSEMIDE 40MG/4ML VIAL IVP SCH (08:36)
[2020-05-06] MEDS: BUDESONIDE 0.5MG/2ML NEB HHN SCH ×2 (12:20→21:34)
[2020-05-06] MEDS: FUROSEMIDE 20MG TABLET PO SCH ×2 (12:21→17:38)
[2020-05-06] MEDS: ENOXAPARIN 40MG/0.4ML SYR SUBCUT SCH (13:35)
[2020-05-06] MEDS: GUAIFENESIN 600MG ER TABLET PO SCH (21:35)
[2020-05-06] MEDS: FAMOTIDINE 20MG TABLET PO SCH (21:35)
[2020-05-07] VITALS (10 sets, daily range): BP systolic 87–124; BP diastolic 60–81
[2020-05-07] MEDS: IPRATROPIUM/ALBUTEROL 0.5-3(2.5)MG/3ML NEB HHN SCH ×5 (00:34→21:16)
[2020-05-07] MEDS: METHYLPREDNISOLONE SOD SUCC 40 MG/ML VIAL IV SCH ×2 (05:27→17:20)
[2020-05-07] MEDS: FUROSEMIDE 20MG TABLET PO SCH ×2 (05:27→17:20)
[2020-05-07 06:56] LABS: HEMATOCRIT 29.7 % (42.0-52.0); HEMOGLOBIN 9.2 g/dL (14.0-18.0); MEAN CORPUSCULAR HEMOGLOBIN 23.7 pg (28.0-32.0); MEAN CORPUSCULAR VOLUME 76.4 fL (80.0-94.0); PLATELET 261 x1000/uL (130-400); RED BLOOD CELL COUNT 3.88 mill/uL (4.7-6.1); RED CELL DISTRIBUTION WIDTH 20.5 % (11.6-14.6)
[2020-05-07 07:05] LABS: CHLORIDE 101 mEq/L (98-107)
[2020-05-07 07:17] LABS: TOTAL IRON BINDING CAPACITY 220 ug/dL (250-450)
[2020-05-07 07:43] LABS: VITAMIN B12 SERUM 299 pg/mL (211-911)
[2020-05-07] MEDS: INSULIN LISPRO 100 UNITS/ML SUBCUT SCH ×4 (08:00→21:15)
[2020-05-07] MEDS: BUDESONIDE 0.5MG/2ML NEB HHN SCH (08:10)
[2020-05-07] MEDS: CARVEDILOL 3.125 MG TABLET PO SCH ×2 (08:19→21:26)
[2020-05-07] MEDS: GUAIFENESIN 600MG ER TABLET PO SCH ×2 (08:19→21:26)
[2020-05-07] MEDS: LOSARTAN POTASSIUM 25 MG TABLET PO SCH (08:19)
[2020-05-07] MEDS: BLOOD SUGAR DIAGNOSTIC STRIP TEST SCH ×4 (08:20→21:13)
[2020-05-07] MEDS: FERROUS SULFATE 325MG TABLET PO SCH ×2 (12:56→17:23)
[2020-05-07] MEDS: ENOXAPARIN 40MG/0.4ML SYR SUBCUT SCH (13:00)
[2020-05-07] MEDS: FAMOTIDINE 20MG TABLET PO SCH (22:23)
[2020-05-08] VITALS (10 sets, daily range): BP systolic 99–120; BP diastolic 64–87
[2020-05-08] MEDS: IPRATROPIUM/ALBUTEROL 0.5-3(2.5)MG/3ML NEB HHN SCH ×6 (00:40→21:28)
[2020-05-08] MEDS: METHYLPREDNISOLONE SOD SUCC 40 MG/ML VIAL IV SCH ×2 (06:13→17:56)
[2020-05-08] MEDS: FUROSEMIDE 20MG TABLET PO SCH ×2 (06:13→17:56)
[2020-05-08 06:37] LABS: CHLORIDE 100 mEq/L (98-107)
[2020-05-08 06:43] LABS: HEMATOCRIT 29.3 % (42.0-52.0); HEMOGLOBIN 9.3 g/dL (14.0-18.0); MEAN CORPUSCULAR HEMOGLOBIN 24.1 pg (28.0-32.0); MEAN CORPUSCULAR VOLUME 75.8 fL (80.0-94.0); PLATELET 284 x1000/uL (130-400); RED BLOOD CELL COUNT 3.86 mill/uL (4.7-6.1); RED CELL DISTRIBUTION WIDTH 20.2 % (11.6-14.6)
[2020-05-08] MEDS: BLOOD SUGAR DIAGNOSTIC STRIP TEST SCH ×4 (07:30→21:44)
[2020-05-08] MEDS: CARVEDILOL 3.125 MG TABLET PO SCH (08:38)
[2020-05-08] MEDS: GUAIFENESIN 600MG ER TABLET PO SCH ×2 (08:38→21:44)
[2020-05-08] MEDS: FERROUS SULFATE 325MG TABLET PO SCH ×3 (08:38→17:56)
[2020-05-08] MEDS: LOSARTAN POTASSIUM 25 MG TABLET PO SCH (08:38)
[2020-05-08] MEDS: BUDESONIDE 0.5MG/2ML NEB HHN SCH (08:58)
[2020-05-08] MEDS: INSULIN LISPRO 100 UNITS/ML SUBCUT SCH ×4 (09:05→21:45)
[2020-05-08] MEDS: ENOXAPARIN 40MG/0.4ML SYR SUBCUT SCH (13:49)
[2020-05-08] MEDS: ASPIRIN 81MG TABLET PO SCH (13:49)
[2020-05-08] MEDS: CARVEDILOL 6.25 MG TABLET PO SCH (21:00)
[2020-05-08] MEDS: FAMOTIDINE 20MG TABLET PO SCH (21:44)
[2020-05-09] VITALS (8 sets, daily range): BP systolic 93–123; BP diastolic 58–76
[2020-05-09] MEDS: DEXT 5%/0.9% NACL 1,000 ML IV SCH ×2 (00:08→20:03)
[2020-05-09] MEDS: IPRATROPIUM/ALBUTEROL 0.5-3(2.5)MG/3ML NEB HHN SCH ×6 (00:41→20:00)
[2020-05-09] MEDS: FUROSEMIDE 20MG TABLET PO SCH ×2 (05:47→17:07)
[2020-05-09] MEDS: METHYLPREDNISOLONE SOD SUCC 40 MG/ML VIAL IV SCH ×2 (05:47→17:07)
[2020-05-09 06:24] LABS: HEMATOCRIT 30.4 % (42.0-52.0); HEMOGLOBIN 9.5 g/dL (14.0-18.0); MEAN CORPUSCULAR HEMOGLOBIN 23.8 pg (28.0-32.0); MEAN CORPUSCULAR VOLUME 76.1 fL (80.0-94.0); PLATELET 310 x1000/uL (130-400); RED CELL DISTRIBUTION WIDTH 19.8 % (11.6-14.6)
[2020-05-09 07:12] LABS: CHLORIDE 101 mEq/L (98-107)
[2020-05-09] MEDS: FERROUS SULFATE 325MG TABLET PO SCH ×3 (08:00→17:07)
[2020-05-09] MEDS: BLOOD SUGAR DIAGNOSTIC STRIP TEST SCH ×4 (08:22→21:24)
[2020-05-09] MEDS: INSULIN LISPRO 100 UNITS/ML SUBCUT SCH ×4 (08:47→21:51)
[2020-05-09] MEDS: CARVEDILOL 6.25 MG TABLET PO SCH ×2 (08:48→21:47)
[2020-05-09] MEDS: ASPIRIN 81MG TABLET PO SCH (08:49)
[2020-05-09] MEDS: LOSARTAN POTASSIUM 25 MG TABLET PO SCH (08:49)
[2020-05-09] MEDS: GUAIFENESIN 600MG ER TABLET PO SCH ×2 (08:49→21:47)
[2020-05-09] MEDS: BUDESONIDE 0.5MG/2ML NEB HHN SCH (09:08)
[2020-05-09] MEDS ORDERED: HEPARIN SODIUM 1,000 UNIT/1ML VIAL IV ONE (11:38)
[2020-05-09] MEDS ORDERED: NICARDIPINE 100MCG/ML 10ML VIAL (CATH LAB) IV ONE (11:38)
[2020-05-09] MEDS ORDERED: NITROGLYCERIN 50MCG/ML 10ML VIAL (CATH LAB) IV ONE (11:38)
[2020-05-09] MEDS ORDERED: FENTANYL CITRATE/PF 50MCG/ML 2ML VIAL ONE (12:20)
[2020-05-09] MEDS ORDERED: MIDAZOLAM HCL 2 MG/2 ML VIAL ONE (12:20)
[2020-05-09] MEDS ORDERED: LIDOCAINE HCL 1% 20ML VIAL (Pyxis) INJ ONE (12:20)
[2020-05-09] MEDS ORDERED: IODIXANOL 320MG/ML 100 ML BOTTLE IV ONE (12:21)
[2020-05-09] MEDS ORDERED: ASPIRIN/SOD BICARB/CITRIC ACID 324MG TAB EFF ONE (12:25)
[2020-05-09] MEDS: ENOXAPARIN 40MG/0.4ML SYR SUBCUT SCH (14:00)
[2020-05-09] MEDS ORDERED: ATROPINE SULFATE 1MG/10ML SYR IV PRN (14:00)
[2020-05-09] MEDS ORDERED: ACETAMINOPHEN 325MG TABLET PO PRN (14:00)
[2020-05-09] MEDS ORDERED: MORPHINE SULFATE 2 MG/ML CPJ (NOT FOR IM USE) IV PRN (14:00)
[2020-05-09] MEDS ORDERED: SODIUM CHLORIDE 0.45% 375 ML IV ONE (15:00)
[2020-05-09] MEDS: FAMOTIDINE 20MG TABLET PO SCH (21:47)
[2020-05-10] VITALS (12 sets, daily range): BP systolic 86–117; BP diastolic 49–73
[2020-05-10] MEDS: IPRATROPIUM/ALBUTEROL 0.5-3(2.5)MG/3ML NEB HHN SCH ×5 (00:53→15:11)
[2020-05-10] MEDS: METHYLPREDNISOLONE SOD SUCC 40 MG/ML VIAL IV SCH (05:11)
[2020-05-10] MEDS: FUROSEMIDE 20MG TABLET PO SCH (05:11)
[2020-05-10] MEDS: BLOOD SUGAR DIAGNOSTIC STRIP TEST SCH ×2 (06:28→11:48)
[2020-05-10 07:28] LABS: CHLORIDE 102 mEq/L (98-107)
[2020-05-10 07:37] LABS: BASOPHILS % 0.4 % (0.0-2.0); EOSINOPHILS % 0.4 % (0.0-5.0); HEMATOCRIT. 31.5 % (42.0-52.0); HEMOGLOBIN. 9.7 g/dL (14.0-18.0); LYMPHOCYTES % 21.9 % (20.0-50.0); MEAN CORPUSCULAR HEMOGLOBIN 23.6 pg (28.0-32.0); MEAN CORPUSCULAR VOLUME 76.8 fL (80.0-94.0); MEAN PLATELET VOLUME 8.6 fl (7.4-10.4); MONOCYTES % 7.5 % (2.0-8.0); NEUTROPHILS % 69.8 % (40.0-76.0); PLATELET 330 x1000/uL (130-400)
[2020-05-10] MEDS: CARVEDILOL 6.25 MG TABLET PO SCH (08:16)
[2020-05-10] MEDS: GUAIFENESIN 600MG ER TABLET PO SCH (08:16)
[2020-05-10] MEDS: LOSARTAN POTASSIUM 25 MG TABLET PO SCH (08:17)
[2020-05-10] MEDS: ASPIRIN 81MG TABLET PO SCH (08:17)
[2020-05-10] MEDS: FERROUS SULFATE 325MG TABLET PO SCH ×2 (08:17→12:27)
[2020-05-10] MEDS: INSULIN LISPRO 100 UNITS/ML SUBCUT SCH ×2 (08:19→12:27)
[2020-05-10] MEDS ORDERED: FURO-151 MT (11:57)
[2020-05-10] MEDS ORDERED: ASPI-1497 MT (11:57)
[2020-05-10] MEDS ORDERED: LOSA25TA3 MT (11:57)
[2020-05-10] MEDS ORDERED: COR6 MT (11:57)
[2020-05-10] MEDS: ENOXAPARIN 40MG/0.4ML SYR SUBCUT SCH (14:05)
== END 2020-05-10 15:52 | disposition home or self-care (01) | DRG 286 ==
LOC: ER 06:18 → 5EST 06:52 → EDBEDREQ 06:53 → EDBEDREQTM 06:53 → ENRESERV 10:28 → 3WST 05-09 14:02
PROVIDERS: ADMIT Internal Medicine; ATTEND Internal Medicine
PROC: 5A09357 Assistance with Respiratory Ventilation, Less than 24 Consecutive Hours, Continuous Positive Airway Pressure (ICD-10-PCS; 2020-05-05)
PROC: 4A023N7 Measurement of Cardiac Sampling and Pressure, Left Heart, Percutaneous Approach (ICD-10-PCS; principal; 2020-05-09)
PROC: B2111ZZ Fluoroscopy of Multiple Coronary Arteries using Low Osmolar Contrast (ICD-10-PCS; 2020-05-09)
DX: I13.0 Hypertensive heart and chronic kidney disease with heart failure and stage 1 through stage 4 chronic kidney disease, or unspecified chronic kidney disease (principal); I50.23 Acute on chronic systolic (congestive) heart failure; J18.9 Pneumonia, unspecified organism; J96.21 Acute and chronic respiratory failure with hypoxia; J44.0 Chronic obstructive pulmonary disease with (acute) lower respiratory infection; J44.1 Chronic obstructive pulmonary disease with (acute) exacerbation; E44.0 Moderate protein-calorie malnutrition; I31.3 Pericardial effusion (noninflammatory); I48.91 Unspecified atrial fibrillation; N18.9 Chronic kidney disease, unspecified; N40.0 Benign prostatic hyperplasia without lower urinary tract symptoms; D64.9 Anemia, unspecified; E11.22 Type 2 diabetes mellitus with diabetic chronic kidney disease; E87.5 Hyperkalemia; E87.8 Other disorders of electrolyte and fluid balance, not elsewhere classified; I08.0 Rheumatic disorders of both mitral and aortic valves; I25.10 Atherosclerotic heart disease of native coronary artery without angina pectoris; I27.81 Cor pulmonale (chronic); I42.8 Other cardiomyopathies; I70.0 Atherosclerosis of aorta; Z87.891 Personal history of nicotine dependence; Z95.810 Presence of automatic (implantable) cardiac defibrillator; Z79.84 Long term (current) use of oral hypoglycemic drugs; Z79.899 Other long term (current) drug therapy; Z99.81 Dependence on supplemental oxygen; Z79.2 Long term (current) use of antibiotics; Z79.82 Long term (current) use of aspirin; Z68.20 Body mass index [BMI] 20.0-20.9, adult
CPT/HCPCS: 36415; 36600; 71045; 80048; 80053; 80305; 81003; 82270; 82375; 82607; 82805; 82962; 83540; 83550; 83605; 83880; 84132; 84145; 84484; 85025; 85027; 85044; 86850; 86900; 93005; 93458; 94640; 94660; 99291; C1769; C1887; C1893; J1644; J1650; J1815; J1940; J1956; J2250; J2920; J2930; J3010; J3475; J3490; J7042; J7626; Q9967

== ENCOUNTER 2020-05-16 04:39 | Inpatient (IN) | payer OTHER ==
[~2020-05-16] VITALS: Ht 185.4 cm; Wt 68.5 kg
[~2020-05-16 04:39] MED LIST changes: +COR6 MT; +LOSA25TA3 MT
[2020-05-16] MEDS ORDERED: ACETAMINOPHEN 325MG TABLET PO STA (04:53)
[2020-05-16] MEDS ORDERED: METHYLPREDNISOLONE SOD SUCC 125 MG/2 ML VIAL IV STA (04:53)
[2020-05-16] MEDS ORDERED: ALBUTEROL (0.083%) 2.5MG/3ML NEB HHN STA (04:53)
[2020-05-16] MEDS ORDERED: MAGNESIUM 2 G PREMIX 50 ML IV STA (04:53)
[2020-05-16] MEDS ORDERED: IPRATROPIUM BROMIDE (0.02%) 0.5MG/2.5ML NEB HHN STA (04:53)
[2020-05-16] MEDS ORDERED: ONDANSETRON HCL 4MG/2ML INJ IV STA (04:53)
[2020-05-16] MEDS ORDERED: AZITHROMYCIN 500 MG in DEXT 5% WATER 250 ML IV ONE (05:00)
[2020-05-16] MEDS ORDERED: CEFTRIAXONE 1 G PREMIX 50 ML IV ONE (05:00)
[2020-05-16 05:26] LABS: HEMATOCRIT. 31.1 % (42.0-52.0); HEMOGLOBIN. 9.6 g/dL (14.0-18.0); MEAN CORPUSCULAR HEMOGLOBIN 23.8 pg (28.0-32.0); MEAN CORPUSCULAR VOLUME 76.7 fL (80.0-94.0); MEAN PLATELET VOLUME 8.3 fl (7.4-10.4); PLATELET 362 x1000/uL (130-400); RED BLOOD CELL COUNT 4.05 mill/uL (4.7-6.1); RED CELL DISTRIBUTION WIDTH 20.6 % (11.6-14.6)
[2020-05-16 05:33] LABS: CHLORIDE 100 mEq/L (98-107)
[2020-05-16 05:35] LABS: BG BASE EXCESS 4.2 mmol/L (-2.0-2.0); BG CARBOXYHEMOGLOBIN 0.3 % (0.5-1.5); BG DEOXYHEMOGLOBIN 9.4 % (0.0-5.0); BG FRACTION INSPIRED OXYGEN 21; BG HCO3 ACT 27.3 mmol/L (22.0-26.0); BG METHEMOGLOBIN 0.4 % (0.0-1.5); BG OXYGEN SATURATION 90.5 % (92.0-98.5); BG OXYHEMOGLOBIN 89.9 % (94.0-97.0); BG PCO2 35.2 mmHg (35.0-45.0); BG PH 7.507 (7.350-7.450); BG PO2 54.3 mmHg (75.0-100.0); BG SAMPLE SITE RIGHT BRACHIAL; BG TOTAL HEMOGLOBIN 10.5 g/dL (12.0-18.0); BG VENT MODE ROOM AIR
[2020-05-16] MEDS ORDERED: SODIUM POLYSTYRENE SULFONATE 15 G/60 ML BOT PO ONE (06:00)
[2020-05-16] MEDS ORDERED: SODIUM BICARBONATE 8.4% 1 MEQ/ML 50ML SYR IV ONE (06:00)
[2020-05-16] MEDS ORDERED: INSULIN REGULAR (HUMULIN R) 300UNITS/3ML IV ONE (06:00)
[2020-05-16] MEDS ORDERED: DEXTROSE 50% WATER 50ML SYRINGE IV ONE (06:00)
[2020-05-16 07:17] LABS: PLATELET ESTIMATE NORMAL
[2020-05-16 10:00] VITALS: BP 91/53
[2020-05-16 10:26] VITALS: BP 91/53
[2020-05-16 12:00] VITALS: BP 92/56
[2020-05-16] MEDS ORDERED: LEVOFLOXACIN 500MG PREMIX 100 ML IV SCH ×2 (13:15→15:00)
[2020-05-16] MEDS ORDERED: IPRATROPIUM/ALBUTEROL 0.5-3(2.5)MG/3ML NEB HHN PRN (13:15)
[2020-05-16] MEDS ORDERED: ONDANSETRON HCL 4MG/2ML INJ IV PRN (13:15)
[2020-05-16] MEDS ORDERED: HYDROCODONE/ACETAMINOPHEN 5/325MG TABLET PO PRN (13:15)
[2020-05-16 15:15] LABS: CHLORIDE 99 mEq/L (98-107)
[2020-05-16 15:27] LABS: CREATINE KINASE 261 IU/L (39-308)
[2020-05-16 15:29] LABS: CREATINE KINASE MB FRACTION < 1.0 ng/mL (0.5-3.6)
[2020-05-16] MEDS: METHYLPREDNISOLONE SOD SUCC 40 MG/ML VIAL IV SCH ×2 (15:55→21:16)
[2020-05-16] MEDS: ENOXAPARIN 40MG/0.4ML SYR SUBCUT SCH (15:56)
[2020-05-16 16:00] VITALS: BP 94/55
[2020-05-16] MEDS ORDERED: DEXTROSE 50% WATER 50ML SYRINGE IV PRN ×2 (18:30→22:15)
[2020-05-16 20:00] VITALS: BP 105/62
[2020-05-16] MEDS ORDERED: INSULIN LISPRO 100 UNITS/ML SUBCUT SCH (21:00)
[2020-05-16] MEDS: BLOOD SUGAR DIAGNOSTIC STRIP TEST SCH (21:03)
[2020-05-16] MEDS ORDERED: INSULIN LISPRO 100 UNITS/ML SUBCUT NR (22:15)
[2020-05-16 23:17] LABS: CREATINE KINASE 269 IU/L (39-308)
[2020-05-16 23:18] LABS: CREATINE KINASE MB FRACTION < 1.0 ng/mL (0.5-3.6)
[2020-05-16] MEDS: PIPERACILLIN/TAZOBACTAM 3.375 G in DEXT 5% WATER 100 ML IV SCH (23:35)
[2020-05-17] VITALS: BP_SYST 109; BP_SYST 111; BP_DIAS 60
[2020-05-17 04:00] VITALS: BP 113/61
[2020-05-17] MEDS: BLOOD SUGAR DIAGNOSTIC STRIP TEST SCH ×4 (06:03→21:12)
[2020-05-17] MEDS: METHYLPREDNISOLONE SOD SUCC 40 MG/ML VIAL IV SCH ×2 (06:03→21:11)
[2020-05-17] MEDS: PIPERACILLIN/TAZOBACTAM 3.375 G in DEXT 5% WATER 100 ML IV SCH (06:04)
[2020-05-17] MEDS: INSULIN LISPRO 100 UNITS/ML SUBCUT SCH ×4 (06:06→21:12)
[2020-05-17 06:20] LABS: CHLORIDE 100 mEq/L (98-107)
[2020-05-17 06:31] LABS: HEMATOCRIT. 28.1 % (42.0-52.0); HEMOGLOBIN. 8.6 g/dL (14.0-18.0); MEAN CORPUSCULAR HEMOGLOBIN 23.4 pg (28.0-32.0); MEAN CORPUSCULAR VOLUME 76.3 fL (80.0-94.0); MEAN PLATELET VOLUME 8.6 fl (7.4-10.4); PLATELET 313 x1000/uL (130-400); RED BLOOD CELL COUNT 3.69 mill/uL (4.7-6.1); RED CELL DISTRIBUTION WIDTH 20.6 % (11.6-14.6)
[2020-05-17 06:36] LABS: T4 FREE 1.14 ng/dL (0.76-1.46)
[2020-05-17 06:38] LABS: HDL CHOLESTEROL 51 mg/dL (40-59); LDL CHOLESTEROL 40 mg/dL (5-100)
[2020-05-17 08:00] VITALS: BP 115/72
[2020-05-17] MEDS: ENOXAPARIN 40MG/0.4ML SYR SUBCUT SCH (08:09)
[2020-05-17] MEDS ORDERED: LEVOFLOXACIN 250MG PREMIX 50 ML IV SCH (11:00)
[2020-05-17 12:00] VITALS: BP 113/61
[2020-05-17] MEDS ORDERED: HYDRALAZINE 20MG/ML VIAL IV PRN (15:00)
[2020-05-17] MEDS ORDERED: LACTULOSE 20G/30ML UDC PO PRN (15:00)
[2020-05-17] MEDS ORDERED: ACETAMINOPHEN 325MG TABLET PO PRN (15:00)
[2020-05-17] MEDS ORDERED: ACETAMINOPHEN 650MG SUPP PR PRN (15:00)
[2020-05-17] MEDS ORDERED: DIPHENHYDRAMINE 50MG/ML VIAL IV PRN (15:00)
[2020-05-17 16:00] VITALS: BP 125/64
[2020-05-17] MEDS: MEROPENEM 1,000 MG in SODIUM CHLORIDE 0.9% 100 ML IV SCH ×2 (16:19→22:19)
[2020-05-17 17:32] LABS: PLATELET ESTIMATE NORMAL
[2020-05-17 20:00] VITALS: BP_SYST 118; BP_SYST 122; BP_SYST 126; BP_DIAS 59; BP_DIAS 65
[2020-05-17] MEDS: BUDESONIDE 0.5MG/2ML NEB HHN SCH (21:31)
[2020-05-17] MEDS: IPRATROPIUM/ALBUTEROL 0.5-3(2.5)MG/3ML NEB HHN SCH (21:31)
[2020-05-17 22:16] LABS: CLARITY URINE CLEAR (CLEAR); COLOR URINE YELLOW (YELLOW); KETONES URINE TRACE (NEGATIVE); LEUKOCYTE ESTERASE URINE NEGATIVE (NEGATIVE); NITRITE URINE NEGATIVE (NEGATIVE); OCCULT BLOOD URINE NEGATIVE (NEGATIVE); PROTEIN URINE 1+ (NEGATIVE)
[2020-05-18] VITALS: BP 128/71
[2020-05-18] MEDS: IPRATROPIUM/ALBUTEROL 0.5-3(2.5)MG/3ML NEB HHN SCH ×4 (01:50→21:23)
[2020-05-18 04:00] VITALS: BP 119/63
[2020-05-18] MEDS: BLOOD SUGAR DIAGNOSTIC STRIP TEST SCH ×4 (05:56→21:08)
[2020-05-18] MEDS: MEROPENEM 1,000 MG in SODIUM CHLORIDE 0.9% 100 ML IV SCH ×3 (05:56→21:00)
[2020-05-18] MEDS: PANTOPRAZOLE 40MG DR TABLET PO SCH (05:56)
[2020-05-18 06:12] LABS: CHLORIDE 103 mEq/L (98-107)
[2020-05-18] MEDS: INSULIN LISPRO 100 UNITS/ML SUBCUT SCH ×4 (06:17→21:07)
[2020-05-18 06:27] LABS: HEMATOCRIT. 26.7 % (42.0-52.0); HEMOGLOBIN. 8.2 g/dL (14.0-18.0); MEAN CORPUSCULAR HEMOGLOBIN 23.6 pg (28.0-32.0); MEAN CORPUSCULAR VOLUME 76.3 fL (80.0-94.0); MEAN PLATELET VOLUME 8.8 fl (7.4-10.4); PLATELET 308 x1000/uL (130-400); RED BLOOD CELL COUNT 3.49 mill/uL (4.7-6.1); RED CELL DISTRIBUTION WIDTH 20.6 % (11.6-14.6)
[2020-05-18 08:00] VITALS: BP 111/62
[2020-05-18] MEDS: BUDESONIDE 0.5MG/2ML NEB HHN SCH ×2 (08:47→21:23)
[2020-05-18] MEDS: METHYLPREDNISOLONE SOD SUCC 40 MG/ML VIAL IV SCH ×2 (08:58→21:00)
[2020-05-18] MEDS: ENOXAPARIN 40MG/0.4ML SYR SUBCUT SCH (08:58)
[2020-05-18 12:00] VITALS: BP 118/62
[2020-05-18 16:00] VITALS: BP 105/65
[2020-05-18 20:00] VITALS: BP 129/74
[2020-05-19] VITALS (7 sets, daily range): BP systolic 107–128; BP diastolic 58–72
[2020-05-19] MEDS: IPRATROPIUM/ALBUTEROL 0.5-3(2.5)MG/3ML NEB HHN SCH ×4 (01:37→21:21)
[2020-05-19] MEDS: MEROPENEM 1,000 MG in SODIUM CHLORIDE 0.9% 100 ML IV SCH ×3 (05:47→22:48)
[2020-05-19] MEDS: PANTOPRAZOLE 40MG DR TABLET PO SCH (06:50)
[2020-05-19] MEDS: INSULIN LISPRO 100 UNITS/ML SUBCUT SCH ×4 (07:21→21:36)
[2020-05-19] MEDS: BLOOD SUGAR DIAGNOSTIC STRIP TEST SCH ×4 (07:31→20:56)
[2020-05-19 07:46] LABS: HEMATOCRIT. 27.5 % (42.0-52.0); HEMOGLOBIN. 8.6 g/dL (14.0-18.0); MEAN CORPUSCULAR HEMOGLOBIN 24.2 pg (28.0-32.0); MEAN CORPUSCULAR VOLUME 77.2 fL (80.0-94.0); MEAN PLATELET VOLUME 8.6 fl (7.4-10.4); PLATELET 304 x1000/uL (130-400); RED BLOOD CELL COUNT 3.56 mill/uL (4.7-6.1); RED CELL DISTRIBUTION WIDTH 20.4 % (11.6-14.6)
[2020-05-19 07:53] LABS: PROTHROMBIN TIME 10.3 sec (9.6-11.0)
[2020-05-19 07:55] LABS: CHLORIDE 102 mEq/L (98-107)
[2020-05-19 08:08] LABS: CARCINO EMBRYONIC ANTIGEN 0.8 ng/ml; PROSTRATE SPECIFIC AG TOTAL 8.59 ng/mL (0.0-4.0)
[2020-05-19] MEDS ORDERED: LIDOCAINE HCL 1% 20ML VIAL (Pyxis) INJ ONE (08:37)
[2020-05-19] MEDS ORDERED: SODIUM BICARBONATE 4% (2.4MEQ) 5ML VIAL IV ONE (08:37)
[2020-05-19] MEDS: METHYLPREDNISOLONE SOD SUCC 40 MG/ML VIAL IV SCH (09:57)
[2020-05-19] MEDS: ENOXAPARIN 40MG/0.4ML SYR SUBCUT SCH (09:57)
[2020-05-19] MEDS: BUDESONIDE 0.5MG/2ML NEB HHN SCH ×2 (10:18→21:21)
[2020-05-19] MEDS ORDERED: SODIUM POLYSTYRENE SULFONATE 15 G/60 ML BOT PO NR (13:00)
[2020-05-19 13:06] LABS: PLATELET ESTIMATE NORMAL
[2020-05-19 18:32] LABS: PLATELET ESTIMATE NORMAL
[2020-05-20] VITALS: BP 120/60
[2020-05-20] MEDS: IPRATROPIUM/ALBUTEROL 0.5-3(2.5)MG/3ML NEB HHN SCH ×3 (02:40→15:25)
[2020-05-20 04:00] VITALS: BP 125/65
[2020-05-20] MEDS: BLOOD SUGAR DIAGNOSTIC STRIP TEST SCH ×2 (06:04→12:20)
[2020-05-20] MEDS: PANTOPRAZOLE 40MG DR TABLET PO SCH (06:10)
[2020-05-20] MEDS: MEROPENEM 1,000 MG in SODIUM CHLORIDE 0.9% 100 ML IV SCH ×2 (06:10→14:46)
[2020-05-20] MEDS: INSULIN LISPRO 100 UNITS/ML SUBCUT SCH ×2 (06:19→12:21)
[2020-05-20 07:30] LABS: BASOPHILS % 0.3 % (0.0-2.0); EOSINOPHILS % 0.2 % (0.0-5.0); HEMATOCRIT. 25.9 % (42.0-52.0); LYMPHOCYTES % 15.8 % (20.0-50.0); MEAN CORPUSCULAR HEMOGLOBIN 23.4 pg (28.0-32.0); MEAN CORPUSCULAR VOLUME 76.2 fL (80.0-94.0); MONOCYTES % 7.3 % (2.0-8.0); NEUTROPHILS % 76.4 % (40.0-76.0); PLATELET 269 x1000/uL (130-400); RED CELL DISTRIBUTION WIDTH 19.9 % (11.6-14.6)
[2020-05-20 07:36] LABS: CHLORIDE 104 mEq/L (98-107)
[2020-05-20 08:00] VITALS: BP_SYST 107; BP_SYST 109; BP_SYST 95; BP_DIAS 61; BP_DIAS 65
[2020-05-20] MEDS: ENOXAPARIN 40MG/0.4ML SYR SUBCUT SCH (08:42)
[2020-05-20] MEDS ORDERED: METHYLPREDNISOLONE SOD SUCC 40 MG/ML VIAL IV SCH (09:00)
[2020-05-20] MEDS: BUDESONIDE 0.5MG/2ML NEB HHN SCH (09:10)
[2020-05-20] MEDS ORDERED: SODIUM CHLORIDE 0.9% INJ 3ML FLUSH IVF SCH (10:45)
[2020-05-20 12:00] VITALS: BP 109/61
[2020-05-20] MEDS ORDERED: INSULIN GLARGINE UD 100 UNITS/ML SYR SUBCUT NR (13:30)
[2020-05-20] MEDS ORDERED: COR3 MT (13:53)
[2020-05-20] MEDS ORDERED: LOSA25TA3 MT (13:53)
[2020-05-20] MEDS ORDERED: FURO-151 MT (13:53)
[2020-05-20] MEDS ORDERED: ASPI-1497 MT (13:53)
[2020-05-20] MEDS ORDERED: METF-415 MT (13:53)
[2020-05-20] MEDS ORDERED: METFORMIN HCL 500MG TABLET PO NR (14:00)
[2020-05-20] MEDS ORDERED: INSULIN LISPRO 100 UNITS/ML SUBCUT NR (14:00)
[2020-05-20 15:43] VITALS: BP 111/62
[2020-05-20 16:25] VITALS: BP 111/62
[2020-05-21] MEDS ORDERED: METFORMIN HCL 500MG TABLET PO SCH (09:00)
[2020-05-21] MEDS ORDERED: FAMOTIDINE 20MG TABLET PO SCH (09:00)
[2020-05-21] MEDS ORDERED: INSULIN GLARGINE UD 100 UNITS/ML SYR SUBCUT SCH (10:00)
== END 2020-05-20 17:45 | disposition home health service (06) | DRG 871 ==
LOC: ER 04:39 → 7WST 05:38 → EDBEDREQTM 05:42 → EDBEDREQ 05:42 → ENRESERV 06:58 → ER 08:52 → 5WST 05-17 00:03
PROVIDERS: ADMIT Internal Medicine; ATTEND Internal Medicine
PROC: 02HV33Z Insertion of Infusion Device into Superior Vena Cava, Percutaneous Approach (ICD-10-PCS; principal; 2020-05-19)
PROC: B548ZZA Ultrasonography of Superior Vena Cava, Guidance (ICD-10-PCS; 2020-05-19)
PROC: B5181ZA Fluoroscopy of Superior Vena Cava using Low Osmolar Contrast, Guidance (ICD-10-PCS; 2020-05-19)
DX: A41.51 Sepsis due to Escherichia coli [E. coli] (principal); J18.9 Pneumonia, unspecified organism; J96.90 Respiratory failure, unspecified, unspecified whether with hypoxia or hypercapnia; I42.8 Other cardiomyopathies; J44.1 Chronic obstructive pulmonary disease with (acute) exacerbation; I31.3 Pericardial effusion (noninflammatory); J44.0 Chronic obstructive pulmonary disease with (acute) lower respiratory infection; N39.0 Urinary tract infection, site not specified; Z99.81 Dependence on supplemental oxygen; E11.65 Type 2 diabetes mellitus with hyperglycemia; D64.9 Anemia, unspecified; Z87.891 Personal history of nicotine dependence; I50.9 Heart failure, unspecified; I11.0 Hypertensive heart disease with heart failure; I25.10 Atherosclerotic heart disease of native coronary artery without angina pectoris; E87.5 Hyperkalemia; I08.0 Rheumatic disorders of both mitral and aortic valves; I27.81 Cor pulmonale (chronic); I70.0 Atherosclerosis of aorta; I95.1 Orthostatic hypotension; N40.0 Benign prostatic hyperplasia without lower urinary tract symptoms; T38.0X5A Adverse effect of glucocorticoids and synthetic analogues, initial encounter; Z20.828 Contact with and (suspected) exposure to other viral communicable diseases; Z79.84 Long term (current) use of oral hypoglycemic drugs; Z79.899 Other long term (current) drug therapy; R74.0 Nonspecific elevation of levels of transaminase and lactic acid dehydrogenase [LDH]
CPT/HCPCS: 36415; 36573; 36600; 71045; 74176; 76770; 76937; 80048; 80053; 80061; 81003; 82375; 82378; 82550; 82553; 82805; 82962; 83036; 83605; 83880; 84145; 84153; 84439; 84443; 84484; 85025; 86850; 86900; 87077; 87186; 93005; 93306; 94640; 97162; 99291; C1725; J0456; J0696; J1650; J1815; J1956; J2185; J2405; J2543; J2920; J2930; J3475; J3490; J7050; J7060; J7626; G0103; U0003-CS

== ENCOUNTER 2020-06-06 14:42 | Emergency (ER) | payer OTHER ==
[~2020-06-06] VITALS: Ht 185.4 cm; Wt 71.0 kg
[~2020-06-06 14:42] MED LIST changes: -ALBU05 NEB; +COR3 MT; -COR6 MT; -LEVO500T2 PO; -METF-414 MT; +METF-415 MT; -P20 PO
[2020-06-06 14:46] VITALS: BP 117/64
== END 2020-06-06 16:05 | disposition home or self-care (01) ==
LOC: ER 14:42
DX: Z45.2 Encounter for adjustment and management of vascular access device (principal); Z87.440 Personal history of urinary (tract) infections; Z79.2 Long term (current) use of antibiotics
CPT/HCPCS: 99281

== ENCOUNTER 2020-06-20 07:43 | Inpatient (IN) | payer OTHER ==
[~2020-06-20] VITALS: Ht 185.4 cm; Wt 70.8 kg
[2020-06-20] MEDS ORDERED: IPRATROPIUM BROMIDE (0.02%) 0.5MG/2.5ML NEB HHN STA (08:06)
[2020-06-20] MEDS ORDERED: METHYLPREDNISOLONE SOD SUCC 125 MG/2 ML VIAL IV STA (08:06)
[2020-06-20] MEDS: ALBUTEROL (0.083%) 2.5MG/3ML NEB HHN SCH ×3 (08:55→09:05)
[2020-06-20 08:59] LABS: BASOPHILS % 1.2 % (0.0-2.0); EOSINOPHILS % 3.6 % (0.0-5.0); HEMATOCRIT. 28.3 % (42.0-52.0); HEMOGLOBIN. 8.9 g/dL (14.0-18.0); LYMPHOCYTES % 30.3 % (20.0-50.0); MEAN CORPUSCULAR HEMOGLOBIN 25.3 pg (28.0-32.0); MEAN CORPUSCULAR VOLUME 80.2 fL (80.0-94.0); MEAN PLATELET VOLUME 8.5 fl (7.4-10.4); MONOCYTES % 8.7 % (2.0-8.0); NEUTROPHILS % 56.2 % (40.0-76.0); PLATELET 359 x1000/uL (130-400); RED BLOOD CELL COUNT 3.53 mill/uL (4.7-6.1); RED CELL DISTRIBUTION WIDTH 22.2 % (11.6-14.6)
[2020-06-20 09:05] LABS: CHLORIDE 107 mEq/L (98-107)
[2020-06-20 09:28] LABS: PLATELET ESTIMATE NORMAL
[2020-06-20] MEDS ORDERED: FUROSEMIDE 40MG/4ML VIAL IV SCH (09:30)
[2020-06-20] MEDS ORDERED: NITROGLYCERIN OINT 1GM/INCH UDPKT TD SCH (09:30)
[2020-06-20 12:00] VITALS: BP 133/78
[2020-06-20 16:00] VITALS: BP 134/70
[2020-06-20 17:23] VITALS: BP 134/72
[2020-06-20] MEDS ORDERED: ONDANSETRON HCL 4MG/2ML INJ IV PRN (18:15)
[2020-06-20] MEDS ORDERED: MAGNESIUM/ALUMINUM HYDROXIDE/SIMETHICONE 30ML UDC PO PRN (18:15)
[2020-06-20] MEDS ORDERED: CLONIDINE 0.1MG TABLET PO PRN (18:15)
[2020-06-20] MEDS ORDERED: ZOLPIDEM TARTRATE 5MG TABLET PO PRN (18:15)
[2020-06-20] MEDS ORDERED: DOCUSATE SODIUM 100MG CAPSULE PO PRN (18:15)
[2020-06-20] MEDS ORDERED: DIPHENHYDRAMINE 50MG/ML VIAL IV PRN (18:15)
[2020-06-20] MEDS ORDERED: DEXTROSE 50% WATER 50ML SYRINGE IV PRN (18:15)
[2020-06-20] MEDS ORDERED: MAGNESIUM HYDROXIDE 400MG/5ML 30ML UDC PO PRN (18:15)
[2020-06-20] MEDS ORDERED: IPRATROPIUM/ALBUTEROL 0.5-3(2.5)MG/3ML NEB HHN PRN (18:15)
[2020-06-20] MEDS ORDERED: ACETAMINOPHEN 325MG TABLET PO PRN ×2 (18:15)
[2020-06-20] MEDS: FERROUS SULFATE 325MG TABLET PO SCH (18:45)
[2020-06-20 20:00] VITALS: BP 125/74
[2020-06-20] MEDS: ENOXAPARIN 40MG/0.4ML SYR SUBCUT SCH (20:00)
[2020-06-20] MEDS: INSULIN LISPRO 100 UNITS/ML SUBCUT SCH (20:46)
[2020-06-20] MEDS: CARVEDILOL 3.125 MG TABLET PO SCH (20:47)
[2020-06-20] MEDS: GUAIFENESIN 600MG ER TABLET PO SCH (20:47)
[2020-06-20] MEDS: BLOOD SUGAR DIAGNOSTIC STRIP TEST SCH (20:48)
[2020-06-20] MEDS: LEVOFLOXACIN 500MG PREMIX 100 ML IV SCH (21:21)
[2020-06-20] MEDS: SODIUM CHLORIDE 0.9% INJ 3ML FLUSH IVF SCH (21:22)
[2020-06-21] VITALS (8 sets, daily range): BP systolic 105–127; BP diastolic 52–72
[2020-06-21] MEDS: IPRATROPIUM/ALBUTEROL 0.5-3(2.5)MG/3ML NEB HHN SCH ×4 (01:20→21:02)
[2020-06-21] MEDS: BLOOD SUGAR DIAGNOSTIC STRIP TEST SCH ×4 (06:48→20:31)
[2020-06-21] MEDS: SODIUM CHLORIDE 0.9% INJ 3ML FLUSH IVF SCH ×3 (06:49→21:55)
[2020-06-21] MEDS: PANTOPRAZOLE 40MG DR TABLET PO SCH (06:49)
[2020-06-21] MEDS: INSULIN LISPRO 100 UNITS/ML SUBCUT SCH ×4 (06:50→20:42)
[2020-06-21 07:58] LABS: BASOPHILS % 0.2 % (0.0-2.0); EOSINOPHILS % 0.2 % (0.0-5.0); HEMATOCRIT. 26.7 % (42.0-52.0); HEMOGLOBIN. 8.5 g/dL (14.0-18.0); LYMPHOCYTES % 21.1 % (20.0-50.0); MEAN CORPUSCULAR VOLUME 78.3 fL (80.0-94.0); MEAN PLATELET VOLUME 8.6 fl (7.4-10.4); MONOCYTES % 9.9 % (2.0-8.0); NEUTROPHILS % 68.6 % (40.0-76.0); PLATELET 370 x1000/uL (130-400); RED BLOOD CELL COUNT 3.41 mill/uL (4.7-6.1); RED CELL DISTRIBUTION WIDTH 22.2 % (11.6-14.6)
[2020-06-21 07:59] LABS: CHLORIDE 104 mEq/L (98-107)
[2020-06-21] MEDS ORDERED: LOSARTAN POTASSIUM 25 MG TABLET PO SCH (09:00)
[2020-06-21] MEDS: CARVEDILOL 3.125 MG TABLET PO SCH (09:00)
[2020-06-21] MEDS: ASPIRIN 81MG EC TABLET PO SCH (09:36)
[2020-06-21] MEDS: GUAIFENESIN 600MG ER TABLET PO SCH ×2 (09:36→20:42)
[2020-06-21] MEDS: FERROUS SULFATE 325MG TABLET PO SCH ×2 (09:36→16:56)
[2020-06-21] MEDS: ATORVASTATIN CALCIUM 40MG TABLET PO SCH (09:36)
[2020-06-21] MEDS: FUROSEMIDE 40MG/4ML VIAL IVP SCH (09:38)
[2020-06-21] MEDS ORDERED: SODIUM POLYSTYRENE SULFONATE 15 G/60 ML BOT PO NR (11:30)
[2020-06-21] MEDS: ENOXAPARIN 40MG/0.4ML SYR SUBCUT SCH (20:00)
[2020-06-21] MEDS: LEVOFLOXACIN 500MG PREMIX 100 ML IV SCH (20:42)
[2020-06-21] MEDS: BUDESONIDE 0.5MG/2ML NEB HHN SCH (21:03)
[2020-06-22] VITALS: BP 120/70
[2020-06-22] MEDS: IPRATROPIUM/ALBUTEROL 0.5-3(2.5)MG/3ML NEB HHN SCH ×3 (03:07→14:47)
[2020-06-22 04:00] VITALS: BP 102/66
[2020-06-22] MEDS: BLOOD SUGAR DIAGNOSTIC STRIP TEST SCH ×3 (06:30→17:20)
[2020-06-22] MEDS: GUAIFENESIN 200MG/10ML SUGAR FREE UDC PO PRN ×2 (06:30→11:17)
[2020-06-22] MEDS: SODIUM CHLORIDE 0.9% INJ 3ML FLUSH IVF SCH ×2 (06:30→13:47)
[2020-06-22] MEDS: PANTOPRAZOLE 40MG DR TABLET PO SCH (06:30)
[2020-06-22 07:00] LABS: BASOPHILS % 0.6 % (0.0-2.0); EOSINOPHILS % 3.3 % (0.0-5.0); HEMATOCRIT. 29.1 % (42.0-52.0); HEMOGLOBIN. 9.1 g/dL (14.0-18.0); LYMPHOCYTES % 27.7 % (20.0-50.0); MEAN CORPUSCULAR HEMOGLOBIN 24.7 pg (28.0-32.0); MEAN CORPUSCULAR VOLUME 79.1 fL (80.0-94.0); MEAN PLATELET VOLUME 8.2 fl (7.4-10.4); MONOCYTES % 8.5 % (2.0-8.0); NEUTROPHILS % 59.9 % (40.0-76.0); PLATELET 385 x1000/uL (130-400); RED BLOOD CELL COUNT 3.68 mill/uL (4.7-6.1); RED CELL DISTRIBUTION WIDTH 22.1 % (11.6-14.6)
[2020-06-22 07:12] LABS: CHLORIDE 103 mEq/L (98-107)
[2020-06-22] MEDS: INSULIN LISPRO 100 UNITS/ML SUBCUT SCH ×3 (07:49→17:50)
[2020-06-22 08:00] VITALS: BP 118/72
[2020-06-22] MEDS: BUDESONIDE 0.5MG/2ML NEB HHN SCH (08:28)
[2020-06-22] MEDS: FUROSEMIDE 40MG/4ML VIAL IVP SCH (08:53)
[2020-06-22] MEDS: GUAIFENESIN 600MG ER TABLET PO SCH (08:53)
[2020-06-22] MEDS: ASPIRIN 81MG EC TABLET PO SCH (08:53)
[2020-06-22] MEDS: FERROUS SULFATE 325MG TABLET PO SCH ×2 (08:53→17:00)
[2020-06-22] MEDS: ATORVASTATIN CALCIUM 40MG TABLET PO SCH (08:53)
[2020-06-22 12:00] VITALS: BP 105/68
[2020-06-22] MEDS ORDERED: MAGNESIUM 1 G PREMIX 100 ML IV SCH (12:00)
[2020-06-22] MEDS ORDERED: LEVO500T2 PO (14:31)
[2020-06-22] MEDS ORDERED: P20 PO (14:33)
[2020-06-22 16:00] VITALS: BP 110/65
[2020-06-22 16:01] VITALS: BP 110/65
== END 2020-06-22 17:45 | disposition home or self-care (01) | DRG 190 ==
LOC: ER 07:43 → 6WST 10:44 → EDBEDREQTM 10:47 → EDBEDREQ 10:47 → ENRESERV 11:14
PROVIDERS: ADMIT Internal Medicine; ATTEND Internal Medicine
DX: J44.1 Chronic obstructive pulmonary disease with (acute) exacerbation (principal); I50.23 Acute on chronic systolic (congestive) heart failure; N39.0 Urinary tract infection, site not specified; I42.9 Cardiomyopathy, unspecified; I42.0 Dilated cardiomyopathy; I11.0 Hypertensive heart disease with heart failure; I25.10 Atherosclerotic heart disease of native coronary artery without angina pectoris; E11.9 Type 2 diabetes mellitus without complications; I25.5 Ischemic cardiomyopathy; D64.9 Anemia, unspecified; E78.00 Pure hypercholesterolemia, unspecified; E78.5 Hyperlipidemia, unspecified; E87.5 Hyperkalemia; I70.0 Atherosclerosis of aorta; I27.81 Cor pulmonale (chronic); J20.9 Acute bronchitis, unspecified; N40.0 Benign prostatic hyperplasia without lower urinary tract symptoms; R74.0 Nonspecific elevation of levels of transaminase and lactic acid dehydrogenase [LDH]; R06.03 Acute respiratory distress; Z99.81 Dependence on supplemental oxygen; Z79.84 Long term (current) use of oral hypoglycemic drugs; Z79.82 Long term (current) use of aspirin; Z79.899 Other long term (current) drug therapy; Z79.02 Long term (current) use of antithrombotics/antiplatelets; Z87.01 Personal history of pneumonia (recurrent)
CPT/HCPCS: 36415; 71045; 80048; 80053; 82962; 83036; 83735; 83880; 84132; 84484; 85025; 87070; 87077; 87186; 93005; 94640; 94644; 96374; 99285; J1815; J1940; J1956; J2930; J3475; J7626

== ENCOUNTER 2020-08-01 08:35 | Emergency (ER) | payer OTHER ==
[~2020-08-01] VITALS: Ht 165.1 cm; Wt 75.0 kg
[~2020-08-01 08:35] MED LIST changes: +LEVO500T2 PO; +P20 PO
[2020-08-01] MEDS ORDERED: ALBUTEROL (0.083%) 2.5MG/3ML NEB HHN STA (08:55)
[2020-08-01] MEDS ORDERED: IPRATROPIUM BROMIDE (0.02%) 0.5MG/2.5ML NEB HHN STA (08:55)
[2020-08-01] MEDS ORDERED: METHYLPREDNISOLONE SOD SUCC 125 MG/2 ML VIAL IV STA (08:55)
[2020-08-01 09:49] LABS: CHLORIDE 106 mEq/L (98-107)
[2020-08-01 09:51] LABS: BASOPHILS % 1.2 % (0.0-2.0); EOSINOPHILS % 3.7 % (0.0-5.0); HEMATOCRIT. 31.6 % (42.0-52.0); HEMOGLOBIN. 9.9 g/dL (14.0-18.0); LYMPHOCYTES % 17.4 % (20.0-50.0); MEAN CORPUSCULAR HEMOGLOBIN 25.5 pg (28.0-32.0); MEAN CORPUSCULAR VOLUME 81.8 fL (80.0-94.0); MEAN PLATELET VOLUME 7.5 fl (7.4-10.4); MONOCYTES % 7.5 % (2.0-8.0); NEUTROPHILS % 70.2 % (40.0-76.0); PLATELET 525 x1000/uL (130-400); RED BLOOD CELL COUNT 3.87 mill/uL (4.7-6.1); RED CELL DISTRIBUTION WIDTH 19.7 % (11.6-14.6)
[2020-08-01 11:04] VITALS: BP 134/71
== END 2020-08-01 11:14 | disposition home or self-care (01) ==
LOC: ER 09:16
DX: J44.1 Chronic obstructive pulmonary disease with (acute) exacerbation (principal); J45.901 Unspecified asthma with (acute) exacerbation; I11.0 Hypertensive heart disease with heart failure; I50.9 Heart failure, unspecified; Z79.899 Other long term (current) drug therapy; Z79.82 Long term (current) use of aspirin
CPT/HCPCS: 36415; 71045; 80053; 83880; 84484; 85025; 93005; 94644; 96374; 99285; J2930

== ENCOUNTER 2020-11-25 07:41 | Inpatient (IN) | payer OTHER ==
[~2020-11-25] VITALS: Ht 185.4 cm; Wt 62.6 kg
[2020-11-25] MEDS ORDERED: FUROSEMIDE 20MG/2ML VIAL IVP ONE (08:15)
[2020-11-25] MEDS ORDERED: DILTIAZEM HCL 5MG/ML 5ML VIAL IV ONE (08:15)
[2020-11-25 08:35] LABS: BASOPHILS % 1.2 % (0.0-2.0); EOSINOPHILS % 3.1 % (0.0-5.0); HEMATOCRIT. 33.3 % (42.0-52.0); HEMOGLOBIN. 10.5 g/dL (14.0-18.0); LYMPHOCYTES % 34.7 % (20.0-50.0); MEAN CORPUSCULAR HEMOGLOBIN 25.8 pg (28.0-32.0); MEAN CORPUSCULAR VOLUME 82.3 fL (80.0-94.0); MEAN PLATELET VOLUME 8.3 fl (7.4-10.4); MONOCYTES % 8.4 % (2.0-8.0); NEUTROPHILS % 52.6 % (40.0-76.0); PLATELET 237 x1000/uL (130-400); RED BLOOD CELL COUNT 4.05 mill/uL (4.7-6.1); RED CELL DISTRIBUTION WIDTH 19.3 % (11.6-14.6)
[2020-11-25 08:44] LABS: PROTHROMBIN TIME 10.9 sec (9.6-11.0)
[2020-11-25 08:50] LABS: CHLORIDE 100 mEq/L (98-107)
[2020-11-25 08:59] LABS: CREATINE KINASE 56 IU/L (39-308)
[2020-11-25] MEDS ORDERED: DILTIAZEM HCL 30MG TABLET PO ONE (09:00)
[2020-11-25 09:01] LABS: T4 FREE 1.23 ng/dL (0.76-1.46)
[2020-11-25 09:25] LABS: CLARITY URINE CLOUDY (CLEAR); KETONES URINE NEGATIVE (NEGATIVE); LEUKOCYTE ESTERASE URINE 2+ (NEGATIVE); NITRITE URINE POSITIVE (NEGATIVE); OCCULT BLOOD URINE NEGATIVE (NEGATIVE); PROTEIN URINE TRACE (NEGATIVE); SPECIFIC GRAVITY URINE 1.006 (1.005-1.030); UROBILINOGEN URINE 0.2 E.U./dL (0.2-1.0)
[2020-11-25 09:41] LABS: COLOR URINE STRAW (YELLOW)
[2020-11-25] MEDS ORDERED: LEVOFLOXACIN 500MG PREMIX 100 ML IV ONE (09:45)
[2020-11-25] MEDS ORDERED: IPRATROPIUM BROMIDE (0.02%) 0.5MG/2.5ML NEB HHN STA (10:00)
[2020-11-25] MEDS: ASPIRIN 81MG EC TABLET PO SCH (12:01)
[2020-11-25] MEDS: FUROSEMIDE 40MG TABLET PO SCH (12:01)
[2020-11-25] MEDS ORDERED: CLONIDINE 0.1MG TABLET PO PRN (13:00)
[2020-11-25] MEDS ORDERED: NA PHOS,M-B/NA PHOS,DI-BA ENEMA 118ML PR PRN (13:00)
[2020-11-25] MEDS ORDERED: ACETAMINOPHEN 325MG TABLET PO PRN (13:00)
[2020-11-25] MEDS ORDERED: AZITHROMYCIN 500 MG in DEXT 5% WATER 250 ML IV SCH (13:00)
[2020-11-25] MEDS ORDERED: LORAZEPAM 0.5MG TABLET PO PRN (13:00)
[2020-11-25] MEDS ORDERED: DIPHENHYDRAMINE 50MG/ML VIAL IV PRN (13:00)
[2020-11-25] MEDS ORDERED: ACETAMINOPHEN 650MG SUPP PR PRN (13:00)
[2020-11-25] MEDS ORDERED: HYDROCODONE/ACETAMINOPHEN 5/325MG TABLET PO PRN (13:00)
[2020-11-25] MEDS ORDERED: DEXTROSE 50% WATER 50ML SYRINGE IV PRN (13:00)
[2020-11-25] MEDS ORDERED: DOCUSATE SODIUM 100MG CAPSULE PO PRN (13:00)
[2020-11-25] MEDS ORDERED: MAGNESIUM/ALUMINUM HYDROXIDE/SIMETHICONE 30ML UDC PO PRN (13:00)
[2020-11-25] MEDS ORDERED: CEFTRIAXONE 1 G PREMIX 50 ML IV SCH (13:00)
[2020-11-25] MEDS ORDERED: ENOXAPARIN 40MG/0.4ML SYR SUBCUT SCH (13:00)
[2020-11-25] MEDS ORDERED: ONDANSETRON HCL 4MG/2ML INJ IV PRN (13:00)
[2020-11-25] MEDS: METHYLPREDNISOLONE SOD SUCC 40 MG/ML VIAL IV SCH ×2 (13:14→21:48)
[2020-11-25] MEDS: INSULIN LISPRO 100 UNITS/ML SUBCUT SCH ×3 (13:20→21:28)
[2020-11-25] MEDS: BLOOD SUGAR DIAGNOSTIC STRIP TEST SCH ×3 (13:29→21:12)
[2020-11-25 13:33] LABS: BG BASE EXCESS 13.8 mmol/L (-2.0-2.0); BG CARBOXYHEMOGLOBIN 0.3 % (0.5-1.5); BG HCO3 ACT 40.3 mmol/L (22.0-26.0); BG METHEMOGLOBIN 0.2 % (0.0-1.5); BG OXYHEMOGLOBIN 97.5 % (94.0-97.0); BG PH 7.431 (7.350-7.450); BG PO2 118.5 mmHg (75.0-100.0); BG SAMPLE SITE RIGHT BRACHIAL; BG TOTAL HEMOGLOBIN 10.6 g/dL (12.0-18.0); BG VENT MODE NASAL CANNULA
[2020-11-25] MEDS: DILTIAZEM HCL 30MG TABLET PO SCH ×2 (14:17→21:28)
[2020-11-25] MEDS ORDERED: ENOXAPARIN 60MG/0.6ML SYR SUBCUT NR (15:00)
[2020-11-25] MEDS: ALBUTEROL 6.7GM HFA INHALER ORI SCH ×2 (16:26→20:09)
[2020-11-25 16:48] LABS: CREATINE KINASE 60 IU/L (39-308)
[2020-11-25 16:49] LABS: CREATINE KINASE MB FRACTION < 1.0 ng/mL (0.5-3.6)
[2020-11-25] MEDS: FAMOTIDINE 20MG TABLET PO SCH (21:28)
[2020-11-26] MEDS: ALBUTEROL 6.7GM HFA INHALER ORI SCH (00:30)
[2020-11-26 00:36] LABS: CREATINE KINASE 46 IU/L (39-308)
[2020-11-26 00:37] LABS: CREATINE KINASE MB FRACTION < 1.0 ng/mL (0.5-3.6)
[2020-11-26] MEDS: ENOXAPARIN 100MG/ML SYR SUBCUT SCH ×2 (03:20→14:41)
[2020-11-26 04:41] LABS: BASOPHILS % 0.4 % (0.0-2.0); HEMATOCRIT. 32.6 % (42.0-52.0); HEMOGLOBIN. 10.2 g/dL (14.0-18.0); LYMPHOCYTES % 12.8 % (20.0-50.0); MEAN CORPUSCULAR HEMOGLOBIN 25.7 pg (28.0-32.0); MEAN PLATELET VOLUME 8.4 fl (7.4-10.4); MONOCYTES % 1.4 % (2.0-8.0); NEUTROPHILS % 85.4 % (40.0-76.0); PLATELET 236 x1000/uL (130-400); RED BLOOD CELL COUNT 3.97 mill/uL (4.7-6.1); RED CELL DISTRIBUTION WIDTH 19.3 % (11.6-14.6)
[2020-11-26 04:51] LABS: CHLORIDE 98 mEq/L (98-107)
[2020-11-26 04:57] LABS: LDL CHOLESTEROL 51 mg/dL (5-100)
[2020-11-26 04:59] LABS: HDL CHOLESTEROL 82 mg/dL (40-59)
[2020-11-26 05:00] LABS: T4 FREE 1.19 ng/dL (0.76-1.46)
[2020-11-26] MEDS: METHYLPREDNISOLONE SOD SUCC 40 MG/ML VIAL IV SCH ×3 (05:09→20:37)
[2020-11-26] MEDS: DILTIAZEM HCL 30MG TABLET PO SCH ×3 (06:11→21:32)
[2020-11-26] MEDS: BLOOD SUGAR DIAGNOSTIC STRIP TEST SCH ×4 (06:42→20:11)
[2020-11-26] MEDS: INSULIN LISPRO 100 UNITS/ML SUBCUT SCH ×4 (06:43→20:39)
[2020-11-26] MEDS: FUROSEMIDE 40MG TABLET PO SCH (09:00)
[2020-11-26] MEDS ORDERED: ASPIRIN 81MG EC TABLET PO SCH (09:00)
[2020-11-26] MEDS: ASPIRIN 81MG EC TABLET PO SCH (09:00)
[2020-11-26] MEDS ORDERED: SODIUM POLYSTYRENE SULFONATE 15 G/60 ML BOT PO NR (09:00)
[2020-11-26 11:40] VITALS: BP 123/76
[2020-11-26 11:50] VITALS: BP 123/67
[2020-11-26] MEDS: CEFTRIAXONE 1,000 MG in DEXTROSE 5% WATER 50 ML IV SCH (12:41)
[2020-11-26] MEDS ORDERED: AZITHROMYCIN 500 MG in DEXT 5% WATER 250 ML IV SCH (14:00)
[2020-11-26] MEDS: GUAIFENESIN 200MG/10ML SUGAR FREE UDC PO PRN ×2 (14:40→20:40)
[2020-11-26 16:00] VITALS: BP 132/87
[2020-11-26 20:00] VITALS: BP 123/78
[2020-11-26] MEDS: FAMOTIDINE 20MG TABLET PO SCH (20:36)
[2020-11-26] MEDS: IPRATROPIUM/ALBUTEROL 0.5-3(2.5)MG/3ML NEB HHN PRN (21:15)
[2020-11-27] VITALS: BP 123/81
[2020-11-27] MEDS: IPRATROPIUM/ALBUTEROL 0.5-3(2.5)MG/3ML NEB HHN PRN (03:18)
[2020-11-27 04:00] VITALS: BP 112/64
[2020-11-27 06:22] LABS: CHLORIDE 96 mEq/L (98-107)
[2020-11-27] MEDS: BLOOD SUGAR DIAGNOSTIC STRIP TEST SCH ×4 (06:32→20:30)
[2020-11-27] MEDS: METHYLPREDNISOLONE SOD SUCC 40 MG/ML VIAL IV SCH ×3 (06:42→20:28)
[2020-11-27] MEDS: DILTIAZEM HCL 30MG TABLET PO SCH ×3 (06:42→21:19)
[2020-11-27] MEDS: INSULIN LISPRO 100 UNITS/ML SUBCUT SCH ×4 (06:43→20:29)
[2020-11-27 06:47] LABS: BASOPHILS % 0.4 % (0.0-2.0); HEMATOCRIT. 32.1 % (42.0-52.0); HEMOGLOBIN. 10.2 g/dL (14.0-18.0); LYMPHOCYTES % 10.1 % (20.0-50.0); MEAN CORPUSCULAR HEMOGLOBIN 26.1 pg (28.0-32.0); MEAN CORPUSCULAR VOLUME 81.9 fL (80.0-94.0); MEAN PLATELET VOLUME 8.9 fl (7.4-10.4); MONOCYTES % 3.3 % (2.0-8.0); NEUTROPHILS % 86.2 % (40.0-76.0); PLATELET 230 x1000/uL (130-400); RED BLOOD CELL COUNT 3.93 mill/uL (4.7-6.1); RED CELL DISTRIBUTION WIDTH 18.8 % (11.6-14.6)
[2020-11-27 08:00] VITALS: BP 102/70
[2020-11-27] MEDS: FUROSEMIDE 40MG TABLET PO SCH (08:54)
[2020-11-27] MEDS: ASPIRIN 81MG EC TABLET PO SCH (08:54)
[2020-11-27] MEDS: ENOXAPARIN 60MG/0.6ML SYR SUBCUT SCH ×2 (08:54→20:30)
[2020-11-27 11:43] VITALS: BP 116/76
[2020-11-27] MEDS: CEFTRIAXONE 1,000 MG in DEXTROSE 5% WATER 50 ML IV SCH (12:08)
[2020-11-27] MEDS: GUAIFENESIN 200MG/10ML SUGAR FREE UDC PO PRN ×2 (13:43→20:29)
[2020-11-27] MEDS: AZITHROMYCIN 500 MG TABLET PO SCH (13:46)
[2020-11-27 16:00] VITALS: BP 127/77
[2020-11-27 20:00] VITALS: BP 112/72
[2020-11-27] MEDS: FAMOTIDINE 20MG TABLET PO SCH (20:29)
[2020-11-27] MEDS: IPRATROPIUM/ALBUTEROL 0.5-3(2.5)MG/3ML NEB HHN SCH (20:59)
[2020-11-28] VITALS: BP 115/73
[2020-11-28 04:00] VITALS: BP 114/64
[2020-11-28] MEDS: GUAIFENESIN 200MG/10ML SUGAR FREE UDC PO PRN ×2 (04:55→16:22)
[2020-11-28] MEDS: METHYLPREDNISOLONE SOD SUCC 40 MG/ML VIAL IV SCH ×3 (04:55→20:52)
[2020-11-28] MEDS: DILTIAZEM HCL 30MG TABLET PO SCH ×3 (05:04→20:52)
[2020-11-28] MEDS: BLOOD SUGAR DIAGNOSTIC STRIP TEST SCH ×4 (05:05→20:53)
[2020-11-28] MEDS: INSULIN LISPRO 100 UNITS/ML SUBCUT SCH ×3 (05:51→21:02)
[2020-11-28 07:51] LABS: BASOPHILS % 0.1 % (0.0-2.0); HEMOGLOBIN. 10.3 g/dL (14.0-18.0); LYMPHOCYTES % 11.2 % (20.0-50.0); MEAN CORPUSCULAR HEMOGLOBIN 25.7 pg (28.0-32.0); MEAN PLATELET VOLUME 8.9 fl (7.4-10.4); MONOCYTES % 1.9 % (2.0-8.0); NEUTROPHILS % 86.8 % (40.0-76.0); PLATELET 250 x1000/uL (130-400); RED BLOOD CELL COUNT 4.02 mill/uL (4.7-6.1); RED CELL DISTRIBUTION WIDTH 18.8 % (11.6-14.6)
[2020-11-28 08:00] VITALS: BP 106/70
[2020-11-28 08:15] LABS: CHLORIDE 95 mEq/L (98-107)
[2020-11-28] MEDS: ENOXAPARIN 60MG/0.6ML SYR SUBCUT SCH (09:07)
[2020-11-28] MEDS: ASPIRIN 81MG EC TABLET PO SCH (09:07)
[2020-11-28] MEDS: FUROSEMIDE 40MG TABLET PO SCH (09:08)
[2020-11-28] MEDS: AZITHROMYCIN 500 MG TABLET PO SCH (09:08)
[2020-11-28] MEDS: IPRATROPIUM/ALBUTEROL 0.5-3(2.5)MG/3ML NEB HHN SCH ×5 (10:30→22:15)
[2020-11-28 12:00] VITALS: BP 125/75
[2020-11-28] MEDS: CEFTRIAXONE 1,000 MG in DEXTROSE 5% WATER 50 ML IV SCH (12:08)
[2020-11-28] MEDS ORDERED: INSULIN GLARGINE UD 100 UNITS/ML SYR SUBCUT NR (19:00)
[2020-11-28 20:00] VITALS: BP 134/86
[2020-11-28] MEDS: FAMOTIDINE 20MG TABLET PO SCH (20:52)
[2020-11-28] MEDS: INSULIN GLARGINE UD 100 UNITS/ML SYR SUBCUT SCH (21:03)
[2020-11-29] VITALS: BP 118/80
[2020-11-29] MEDS: DILTIAZEM HCL 30MG TABLET PO SCH ×2 (01:21→08:39)
[2020-11-29 04:00] VITALS: BP 126/75
[2020-11-29] MEDS: IPRATROPIUM/ALBUTEROL 0.5-3(2.5)MG/3ML NEB HHN SCH ×3 (04:05→11:56)
[2020-11-29] MEDS: BLOOD SUGAR DIAGNOSTIC STRIP TEST SCH ×2 (06:25→12:14)
[2020-11-29] MEDS: INSULIN LISPRO 100 UNITS/ML SUBCUT SCH ×2 (06:25→12:13)
[2020-11-29] MEDS: GUAIFENESIN 200MG/10ML SUGAR FREE UDC PO PRN (06:30)
[2020-11-29 06:44] LABS: BASOPHILS % 0.1 % (0.0-2.0); HEMOGLOBIN. 9.9 g/dL (14.0-18.0); MEAN CORPUSCULAR HEMOGLOBIN 25.9 pg (28.0-32.0); MEAN CORPUSCULAR VOLUME 81.2 fL (80.0-94.0); MEAN PLATELET VOLUME 8.6 fl (7.4-10.4); MONOCYTES % 3.3 % (2.0-8.0); NEUTROPHILS % 87.6 % (40.0-76.0); PLATELET 246 x1000/uL (130-400); RED BLOOD CELL COUNT 3.82 mill/uL (4.7-6.1); RED CELL DISTRIBUTION WIDTH 18.7 % (11.6-14.6)
[2020-11-29 07:06] LABS: CHLORIDE 96 mEq/L (98-107)
[2020-11-29 08:00] VITALS: BP 132/76
[2020-11-29] MEDS: AZITHROMYCIN 500 MG TABLET PO SCH (08:38)
[2020-11-29] MEDS: FUROSEMIDE 40MG TABLET PO SCH (08:38)
[2020-11-29] MEDS: ASPIRIN 81MG EC TABLET PO SCH (08:38)
[2020-11-29] MEDS: METHYLPREDNISOLONE SOD SUCC 40 MG/ML VIAL IV SCH (08:39)
[2020-11-29] MEDS ORDERED: ENOXAPARIN 30MG/0.3ML SYR SUBCUT SCH (09:00)
[2020-11-29] MEDS: INSULIN GLARGINE UD 100 UNITS/ML SYR SUBCUT SCH (11:08)
[2020-11-29] MEDS: CEFTRIAXONE 1,000 MG in DEXTROSE 5% WATER 50 ML IV SCH (12:12)
[2020-11-29] MEDS ORDERED: FERR-71 MT (13:14)
[2020-11-29] MEDS ORDERED: P20 PO (13:14)
[2020-11-29] MEDS ORDERED: LIP40 MT (13:14)
[2020-11-29] MEDS ORDERED: CIPR-263 MT (13:14)
[2020-11-29] MEDS ORDERED: ASPI-1497 MT (13:14)
[2020-11-29] MEDS ORDERED: DILT30TA38 MT (13:14)
[2020-11-29] MEDS ORDERED: FURO-151 MT (13:14)
[2020-11-29] MEDS ORDERED: ALBU90AE INH (13:14)
[2020-11-29] MEDS ORDERED: FERROUS SULFATE 325MG TABLET PO SCH (17:15)
== END 2020-11-29 13:25 | disposition home or self-care (01) | DRG 190 ==
LOC: ER 07:48 → MICUSO 09:57 → EDBEDREQ 10:19 → EDBEDREQSVC 16:32 → EDBEDREQTM 19:40 → EDBEDREQSVC 20:44 → 5WST 11-26 09:28
PROVIDERS: ADMIT Internal Medicine; ATTEND Internal Medicine
DX: J44.1 Chronic obstructive pulmonary disease with (acute) exacerbation (principal); I50.41 Acute combined systolic (congestive) and diastolic (congestive) heart failure; N39.0 Urinary tract infection, site not specified; I42.9 Cardiomyopathy, unspecified; R04.2 Hemoptysis; D64.9 Anemia, unspecified; E11.65 Type 2 diabetes mellitus with hyperglycemia; E78.5 Hyperlipidemia, unspecified; E87.5 Hyperkalemia; I11.0 Hypertensive heart disease with heart failure; I25.10 Atherosclerotic heart disease of native coronary artery without angina pectoris; I48.0 Paroxysmal atrial fibrillation; E88.09 Other disorders of plasma-protein metabolism, not elsewhere classified; Z79.82 Long term (current) use of aspirin; Z79.84 Long term (current) use of oral hypoglycemic drugs; Z79.899 Other long term (current) drug therapy; Z95.810 Presence of automatic (implantable) cardiac defibrillator; Z20.822 Contact with and (suspected) exposure to COVID-19; Z87.891 Personal history of nicotine dependence; Z82.49 Family history of ischemic heart disease and other diseases of the circulatory system; R06.03 Acute respiratory distress
CPT/HCPCS: 36415; 36600; 71045; 71250; 74018; 80048; 80053; 80061; 81003; 82375; 82550; 82553; 82805; 82962; 83036; 83605; 83880; 84145; 84439; 84443; 84484; 85025; 87426; 93005; 94640; 97162; 99291; J0456; J0696; J1650; J1815; J1940; J1956; J2920; J3490; J7040; J7060

== ENCOUNTER 2020-12-23 10:16 | Emergency (ER) | payer OTHER ==
[~2020-12-23] VITALS: Ht 182.9 cm; Wt 72.0 kg
[~2020-12-23 10:16] MED LIST changes: +CIPR-263 MT; +DILT30TA38 MT; +FERR-71 MT; -LEVO500T2 PO
[2020-12-23] MEDS ORDERED: ALBUTEROL (0.083%) 2.5MG/3ML NEB HHN STA (10:49)
[2020-12-23] MEDS ORDERED: IPRATROPIUM BROMIDE (0.02%) 0.5MG/2.5ML NEB HHN STA (10:49)
[2020-12-23] MEDS ORDERED: ASPIRIN 81MG TABLET PO ONE (11:00)
[2020-12-23] MEDS ORDERED: ALBUTEROL (0.083%) 2.5MG/3ML NEB ONE (11:14)
[2020-12-23 11:35] LABS: BG BASE EXCESS 4.2 mmol/L (-2.0-2.0); BG CARBOXYHEMOGLOBIN 0.3 % (0.5-1.5); BG DEOXYHEMOGLOBIN 2.2 % (0.0-5.0); BG FRACTION INSPIRED OXYGEN 24; BG HCO3 ACT 30.4 mmol/L (22.0-26.0); BG METHEMOGLOBIN 0.2 % (0.0-1.5); BG OXYGEN SATURATION 97.8 % (92.0-98.5); BG OXYHEMOGLOBIN 97.3 % (94.0-97.0); BG PCO2 54.2 mmHg (35.0-45.0); BG PH 7.367 (7.350-7.450); BG PO2 112.1 mmHg (75.0-100.0); BG SAMPLE SITE RIGHT RADIAL; BG TOTAL HEMOGLOBIN 10.4 g/dL (12.0-18.0); BG VENT MODE NASAL CANNULA
[2020-12-23 11:36] LABS: BASOPHILS % 1.2 % (0.0-2.0); EOSINOPHILS % 6.2 % (0.0-5.0); HEMATOCRIT. 33.3 % (42.0-52.0); HEMOGLOBIN. 10.3 g/dL (14.0-18.0); LYMPHOCYTES % 34.5 % (20.0-50.0); MEAN CORPUSCULAR HEMOGLOBIN 26.1 pg (28.0-32.0); MEAN CORPUSCULAR VOLUME 84.5 fL (80.0-94.0); MEAN PLATELET VOLUME 8.3 fl (7.4-10.4); NEUTROPHILS % 52.1 % (40.0-76.0); PLATELET 131 x1000/uL (130-400); RED BLOOD CELL COUNT 3.94 mill/uL (4.7-6.1); RED CELL DISTRIBUTION WIDTH 18.1 % (11.6-14.6)
[2020-12-23 11:46] LABS: CHLORIDE 103 mEq/L (98-107)
[2020-12-23 11:51] LABS: PROTHROMBIN TIME 10.7 sec (9.6-11.0)
[2020-12-23] MEDS ORDERED: PREDNISONE 20MG TABLET PO ONE (13:30)
[2020-12-23] MEDS ORDERED: P50 MT (13:51)
[2020-12-23 14:00] VITALS: BP 138/72
[2020-12-23 14:25] LABS: CLARITY URINE CLEAR (CLEAR); COLOR URINE YELLOW (YELLOW); KETONES URINE NEGATIVE (NEGATIVE); LEUKOCYTE ESTERASE URINE NEGATIVE (NEGATIVE); NITRITE URINE NEGATIVE (NEGATIVE); OCCULT BLOOD URINE NEGATIVE (NEGATIVE); PROTEIN URINE TRACE (NEGATIVE); SPECIFIC GRAVITY URINE 1.013 (1.005-1.030); UROBILINOGEN URINE 0.2 E.U./dL (0.2-1.0)
[2020-12-23 14:49] LABS: *AMPHETAMINES SCREEN URINE NEGATIVE (NEGATIVE); *BARBITURATES SCREEN URINE NEGATIVE (NEGATIVE); *BENZODIAZEPINES SCREEN URINE NEGATIVE (NEGATIVE); *COCAINE SCREEN URINE NEGATIVE (NEGATIVE); METHADONE URINE SCREEN NEGATIVE (NEGATIVE)
[2020-12-23 14:50] LABS: CANNABINOID URINE SCREEN NEGATIVE (NEGATIVE); OPIATES URINE SCREEN NEGATIVE (NEGATIVE); PHENCYCLIDINE URINE SCREEN NEGATIVE (NEGATIVE)
== END 2020-12-23 14:11 | disposition home or self-care (01) ==
LOC: ER 10:22
DX: J44.1 Chronic obstructive pulmonary disease with (acute) exacerbation (principal); I11.0 Hypertensive heart disease with heart failure; I50.9 Heart failure, unspecified; E11.9 Type 2 diabetes mellitus without complications; Z79.899 Other long term (current) drug therapy; Z79.82 Long term (current) use of aspirin
CPT/HCPCS: 36415; 36600; 71045; 80053; 80305; 81003; 82375; 82805; 82962; 83880; 84484; 85025; 85610; 85730; 87040; 93005; 94640; 99285; J7512

== ENCOUNTER 2021-02-07 22:16 | Inpatient (IN) | payer OTHER ==
[~2021-02-07] VITALS: Ht 185.4 cm; Wt 64.9 kg
[~2021-02-07 22:16] MED LIST changes: -CIPR-263 MT; -COR3 MT; -DILT30TA38 MT; -FERR-71 MT; -LOSA25TA3 MT; -P20 PO
[2021-02-07] MEDS ORDERED: MAGNESIUM 2 G PREMIX 50 ML IV STA (23:20)
[2021-02-07] MEDS ORDERED: METHYLPREDNISOLONE SOD SUCC 125 MG/2 ML VIAL IV STA (23:20)
[2021-02-07] MEDS ORDERED: FUROSEMIDE 20MG/2ML VIAL IVP ONE (23:30)
[2021-02-07] MEDS ORDERED: VANCOMYCIN 1 G PREMIX 200 ML IV ONE (23:30)
[2021-02-07] MEDS ORDERED: LEVOFLOXACIN 750MG PREMIX 150 ML IV ONE (23:30)
[2021-02-07] MEDS ORDERED: ALBUTEROL 6.7GM HFA INHALER ORI ONE (23:30)
[2021-02-07 23:44] LABS: BASOPHILS % 0.6 % (0.0-2.0); EOSINOPHILS % 4.4 % (0.0-5.0); HEMATOCRIT. 33.9 % (42.0-52.0); LYMPHOCYTES % 28.1 % (20.0-50.0); MEAN CORPUSCULAR VOLUME 83.4 fL (80.0-94.0); MONOCYTES % 7.3 % (2.0-8.0); NEUTROPHILS % 59.6 % (40.0-76.0); PLATELET 327 x1000/uL (130-400); RED BLOOD CELL COUNT 4.07 mill/uL (4.7-6.1); RED CELL DISTRIBUTION WIDTH 16.8 % (11.6-14.6)
[2021-02-07 23:50] LABS: CHLORIDE 100 mEq/L (98-107)
[2021-02-08] MEDS ORDERED: FUROSEMIDE 100MG/10ML VIAL IV STA (01:59)
[2021-02-08] MEDS ORDERED: INSULIN REGULAR (HUMULIN R) 300UNITS/3ML VIAL IV ONE (02:00)
[2021-02-08] MEDS ORDERED: SODIUM CHLORIDE 0.9% 250 ML IV ONE (02:00)
[2021-02-08] MEDS ORDERED: DEXTROSE 50% WATER 50ML SYRINGE IV ONE (02:00)
[2021-02-08] MEDS ORDERED: CALCIUM CHLORIDE 1GM/10ML SYR IV ONE (02:00)
[2021-02-08] MEDS ORDERED: ACETAMINOPHEN 325MG TABLET PO PRN (10:45)
[2021-02-08] MEDS ORDERED: ONDANSETRON HCL 4MG/2ML INJ IV PRN (10:45)
[2021-02-08] MEDS ORDERED: DEXTROSE 50% WATER 50ML SYRINGE IV PRN (10:45)
[2021-02-08] MEDS: BLOOD SUGAR DIAGNOSTIC STRIP TEST SCH ×3 (13:31→21:33)
[2021-02-08 14:30] VITALS: BP 132/79
[2021-02-08] MEDS ORDERED: DOCU-138 PO (15:13)
[2021-02-08] MEDS ORDERED: P20 PO (15:13)
[2021-02-08] MEDS ORDERED: LEVO750T46 PO (15:13)
[2021-02-08] MEDS ORDERED: TAMS-11 PO (15:13)
[2021-02-08] MEDS ORDERED: CARV6.2548 PO (15:13)
[2021-02-08] MEDS ORDERED: MONT4GRA2 PO (15:13)
[2021-02-08 15:30] VITALS: BP 132/79
[2021-02-08 16:00] VITALS: BP 102/62
[2021-02-08] MEDS: SODIUM POLYSTYRENE SULFONATE 15 G/60 ML BOT PO NR ×2 (16:36→21:00)
[2021-02-08] MEDS: FUROSEMIDE 40MG/4ML VIAL IVP SCH (16:37)
[2021-02-08] MEDS: ALBUTEROL 6.7GM HFA INHALER ORI PRN ×2 (16:53→21:44)
[2021-02-08] MEDS: INSULIN LISPRO 100 UNITS/ML SUBCUT SCH ×2 (17:26→21:34)
[2021-02-08 20:08] LABS: CLARITY URINE CLEAR (CLEAR); COLOR URINE YELLOW (YELLOW); KETONES URINE NEGATIVE (NEGATIVE); LEUKOCYTE ESTERASE URINE NEGATIVE (NEGATIVE); NITRITE URINE NEGATIVE (NEGATIVE); OCCULT BLOOD URINE NEGATIVE (NEGATIVE); PH URINE 6.5 (4.5-8.0); PROTEIN URINE NEGATIVE (NEGATIVE); SPECIFIC GRAVITY URINE 1.007 (1.005-1.030); UROBILINOGEN URINE 0.2 E.U./dL (0.2-1.0)
[2021-02-08 20:25] LABS: PROTHROMBIN TIME 11.1 sec (9.6-11.0)
[2021-02-08 20:40] VITALS: BP 125/71
[2021-02-08] MEDS: BENZONATATE 100MG CAPSULE PO PRN (21:32)
[2021-02-08] MEDS: CARVEDILOL 3.125 MG TABLET PO SCH (21:33)
[2021-02-08] MEDS: METHYLPREDNISOLONE SOD SUCC 40 MG/ML VIAL IV SCH (22:30)
[2021-02-08] MEDS ORDERED: ALBUTEROL (0.083%) 2.5MG/3ML NEB HHN PRN (23:45)
[2021-02-09] VITALS: BP 127/76
[2021-02-09] MEDS: IPRATROPIUM/ALBUTEROL 0.5-3(2.5)MG/3ML NEB HHN SCH ×5 (00:57→21:18)
[2021-02-09 04:00] VITALS: BP 106/66
[2021-02-09] MEDS: BLOOD SUGAR DIAGNOSTIC STRIP TEST SCH ×4 (06:10→20:33)
[2021-02-09] MEDS: METHYLPREDNISOLONE SOD SUCC 40 MG/ML VIAL IV SCH ×3 (06:10→21:14)
[2021-02-09 06:25] LABS: HEMATOCRIT. 31.1 % (42.0-52.0); HEMOGLOBIN. 9.6 g/dL (14.0-18.0); MEAN CORPUSCULAR HEMOGLOBIN 25.3 pg (28.0-32.0); MEAN CORPUSCULAR VOLUME 81.9 fL (80.0-94.0); MEAN PLATELET VOLUME 8.7 fl (7.4-10.4); PLATELET 289 x1000/uL (130-400); RED BLOOD CELL COUNT 3.79 mill/uL (4.7-6.1); RED CELL DISTRIBUTION WIDTH 16.8 % (11.6-14.6)
[2021-02-09 06:39] LABS: CHLORIDE 94 mEq/L (98-107)
[2021-02-09 08:00] VITALS: BP 106/67
[2021-02-09] MEDS: FUROSEMIDE 40MG/4ML VIAL IVP SCH ×2 (08:53→18:19)
[2021-02-09] MEDS: CARVEDILOL 3.125 MG TABLET PO SCH (08:54)
[2021-02-09] MEDS: LOSARTAN POTASSIUM 25 MG TABLET PO SCH (08:55)
[2021-02-09] MEDS: INSULIN LISPRO 100 UNITS/ML SUBCUT SCH ×4 (08:56→21:20)
[2021-02-09] MEDS ORDERED: MAGNESIUM 2 G PREMIX 50 ML IV SCH (10:00)
[2021-02-09 12:00] VITALS: BP 116/67
[2021-02-09 13:26] LABS: PLATELET ESTIMATE NORMAL
[2021-02-09] MEDS: BENZONATATE 100MG CAPSULE PO PRN (15:59)
[2021-02-09 16:00] VITALS: BP 127/127
[2021-02-09 20:42] VITALS: BP 148/44
[2021-02-10] VITALS: BP 124/73
[2021-02-10] MEDS: IPRATROPIUM/ALBUTEROL 0.5-3(2.5)MG/3ML NEB HHN SCH ×4 (02:10→20:36)
[2021-02-10 04:00] VITALS: BP 122/68
[2021-02-10] MEDS: METHYLPREDNISOLONE SOD SUCC 40 MG/ML VIAL IV SCH ×2 (05:46→13:29)
[2021-02-10] MEDS: BLOOD SUGAR DIAGNOSTIC STRIP TEST SCH ×3 (05:57→17:58)
[2021-02-10 07:16] LABS: HEMOGLOBIN. 9.2 g/dL (14.0-18.0); MEAN CORPUSCULAR HEMOGLOBIN 26.7 pg (28.0-32.0); MEAN CORPUSCULAR VOLUME 81.4 fL (80.0-94.0); MEAN PLATELET VOLUME 8.4 fl (7.4-10.4); PLATELET 247 x1000/uL (130-400); RED BLOOD CELL COUNT 3.44 mill/uL (4.7-6.1); RED CELL DISTRIBUTION WIDTH 16.4 % (11.6-14.6)
[2021-02-10 07:36] LABS: CHLORIDE 93 mEq/L (98-107)
[2021-02-10] MEDS: LOSARTAN POTASSIUM 25 MG TABLET PO SCH (09:20)
[2021-02-10] MEDS: FUROSEMIDE 40MG/4ML VIAL IVP SCH ×2 (09:20→17:46)
[2021-02-10] MEDS: BENZONATATE 100MG CAPSULE PO PRN (09:20)
[2021-02-10] MEDS: INSULIN LISPRO 100 UNITS/ML SUBCUT SCH ×3 (09:21→17:58)
[2021-02-10] MEDS ORDERED: MAGNESIUM 2 G PREMIX 50 ML IV NR (11:00)
[2021-02-10 12:00] VITALS: BP 106/69
[2021-02-10] MEDS ORDERED: DILTIAZEM HCL 30MG TABLET PO SCH (12:00)
[2021-02-10 16:00] VITALS: BP 90/50
[2021-02-10] MEDS ORDERED: DILTIAZEM HCL 60MG TABLET PO SCH (19:00)
[2021-02-10 19:59] VITALS: BP 103/60
[2021-02-10 21:52] LABS: PLATELET ESTIMATE NORMAL
== END 2021-02-10 20:55 | disposition home or self-care (01) | DRG 189 ==
LOC: ER 22:16 → 7WST 02-08 00:10 → EDBEDREQSVC 02-08 08:28 → EDBEDREQ 02-08 12:53 → ENRESERV 02-08 13:04 → 6WST 02-08 23:29
PROVIDERS: ADMIT Internal Medicine; ATTEND Internal Medicine
PROC: 5A09357 Assistance with Respiratory Ventilation, Less than 24 Consecutive Hours, Continuous Positive Airway Pressure (ICD-10-PCS; principal; 2021-02-07)
DX: J96.20 Acute and chronic respiratory failure, unspecified whether with hypoxia or hypercapnia (principal); J44.1 Chronic obstructive pulmonary disease with (acute) exacerbation; E87.1 Hypo-osmolality and hyponatremia; R04.2 Hemoptysis; I43 Cardiomyopathy in diseases classified elsewhere; R64 Cachexia; Z68.1 Body mass index [BMI] 19.9 or less, adult; I50.22 Chronic systolic (congestive) heart failure; I11.0 Hypertensive heart disease with heart failure; I48.0 Paroxysmal atrial fibrillation; D64.9 Anemia, unspecified; Z20.822 Contact with and (suspected) exposure to COVID-19; E87.5 Hyperkalemia; E11.9 Type 2 diabetes mellitus without complications; I25.10 Atherosclerotic heart disease of native coronary artery without angina pectoris; Z95.810 Presence of automatic (implantable) cardiac defibrillator; Z79.51 Long term (current) use of inhaled steroids; Z79.84 Long term (current) use of oral hypoglycemic drugs; Z79.899 Other long term (current) drug therapy; Z79.82 Long term (current) use of aspirin; Z79.01 Long term (current) use of anticoagulants
CPT/HCPCS: 36415; 71045; 80048; 80053; 81003; 82962; 83605; 83735; 83880; 84132; 84484; 85025; 86850; 86900; 93005; 93306; 94640; 94660; 99291; J1815; J1940; J1956; J2920; J2930; J3370; J3475; J3490; J7050; U0003

== ENCOUNTER 2021-03-28 19:56 | Emergency (ER) | payer OTHER ==
[~2021-03-28] VITALS: Ht 182.9 cm; Wt 81.0 kg
[~2021-03-28 19:56] MED LIST changes: +CARV6.2548 PO; +DOCU-138 PO; +MONT4GRA2 PO; +P20 PO; +TAMS-11 PO
[2021-03-28] MEDS ORDERED: OXYMETAZOLINE HCL NASAL SPRAY 15ML BOTHNSTRLS SCH (20:30)
[2021-03-28 20:38] VITALS: BP 121/69
== END 2021-03-28 20:40 | disposition home or self-care (01) ==
LOC: ER 19:56
DX: R04.0 Epistaxis (principal); J44.9 Chronic obstructive pulmonary disease, unspecified; E11.9 Type 2 diabetes mellitus without complications; I10 Essential (primary) hypertension; Z98.890 Other specified postprocedural states; Z79.82 Long term (current) use of aspirin; Z79.899 Other long term (current) drug therapy
CPT/HCPCS: 93005; 99283

== ENCOUNTER 2021-05-24 08:49 | Inpatient (IN) | payer OTHER ==
[~2021-05-24] VITALS: Ht 172.7 cm; Wt 65.3 kg
[2021-05-24] MEDS ORDERED: MAGNESIUM 2 G PREMIX 50 ML IV STA (08:56)
[2021-05-24] MEDS ORDERED: IPRATROPIUM BROMIDE (0.02%) 0.5MG/2.5ML NEB HHN STA (08:56)
[2021-05-24] MEDS ORDERED: ALBUTEROL (0.083%) 2.5MG/3ML NEB HHN STA (08:56)
[2021-05-24] MEDS ORDERED: METHYLPREDNISOLONE SOD SUCC 125 MG/2 ML VIAL IV STA (08:56)
[2021-05-24 09:31] LABS: BASOPHILS % 0.7 % (0.0-2.0); EOSINOPHILS % 5.1 % (0.0-5.0); HEMATOCRIT. 31.8 % (42.0-52.0); HEMOGLOBIN. 10.1 g/dL (14.0-18.0); LYMPHOCYTES % 19.6 % (20.0-50.0); MEAN CORPUSCULAR HEMOGLOBIN 27.4 pg (28.0-32.0); MEAN CORPUSCULAR VOLUME 86.5 fL (80.0-94.0); MEAN PLATELET VOLUME 8.3 fl (7.4-10.4); MONOCYTES % 6.7 % (2.0-8.0); NEUTROPHILS % 67.9 % (40.0-76.0); PLATELET 171 x1000/uL (130-400); RED BLOOD CELL COUNT 3.68 mill/uL (4.7-6.1); RED CELL DISTRIBUTION WIDTH 18.1 % (11.6-14.6)
[2021-05-24 09:39] LABS: CHLORIDE 104 mEq/L (98-107)
[2021-05-24] MEDS ORDERED: FUROSEMIDE 20MG/2ML VIAL IVP ONE (10:15)
[2021-05-24] MEDS ORDERED: MAGNESIUM/ALUMINUM HYDROXIDE/SIMETHICONE 30ML UDC PO PRN (15:15)
[2021-05-24] MEDS ORDERED: ACETAMINOPHEN 650MG SUPP PR PRN (15:15)
[2021-05-24] MEDS ORDERED: ONDANSETRON HCL 4MG/2ML INJ IV PRN (15:15)
[2021-05-24] MEDS ORDERED: CLONIDINE 0.1MG TABLET PO PRN (15:15)
[2021-05-24] MEDS ORDERED: DOCUSATE SODIUM 100MG CAPSULE PO PRN (15:15)
[2021-05-24] MEDS ORDERED: LORAZEPAM 0.5MG TABLET PO PRN (15:15)
[2021-05-24] MEDS ORDERED: DIPHENHYDRAMINE 50MG/ML VIAL IV PRN (15:15)
[2021-05-24] MEDS ORDERED: DEXTROSE 50% WATER 50ML SYRINGE IV PRN (15:15)
[2021-05-24] MEDS ORDERED: NA PHOS,M-B/NA PHOS,DI-BA ENEMA 118ML PR PRN (15:15)
[2021-05-24] MEDS ORDERED: HYDROCODONE/ACETAMINOPHEN 5/325MG TABLET PO PRN (15:15)
[2021-05-24] MEDS ORDERED: ACETAMINOPHEN 325MG TABLET PO PRN (15:15)
[2021-05-24] MEDS ORDERED: IPRATROPIUM/ALBUTEROL 0.5-3(2.5)MG/3ML NEB NEB PRN (15:15)
[2021-05-24] MEDS ORDERED: NALOXONE HCL 0.4MG/ML VIAL IV PRN (15:45)
[2021-05-24] MEDS ORDERED: LEVOFLOXACIN 500MG PREMIX 100 ML IV SCH (16:00)
[2021-05-24] MEDS: METHYLPREDNISOLONE SOD SUCC 40 MG/ML VIAL IV SCH (19:26)
[2021-05-24] MEDS: BLOOD SUGAR DIAGNOSTIC STRIP TEST SCH ×2 (21:00→22:32)
[2021-05-24] MEDS: INSULIN LISPRO 100 UNITS/ML SUBCUT SCH ×2 (21:00→22:39)
[2021-05-24] MEDS: FAMOTIDINE 20MG TABLET PO SCH (22:27)
[2021-05-24 23:49] LABS: CREATINE KINASE 43 IU/L (39-308)
[2021-05-24 23:50] LABS: CREATINE KINASE MB FRACTION < 1.0 ng/mL (0.5-3.6)
[2021-05-24 23:52] LABS: PROTHROMBIN TIME 11.1 sec (9.6-11.0)
[2021-05-25 01:30] VITALS: BP 125/68
[2021-05-25] MEDS: METHYLPREDNISOLONE SOD SUCC 40 MG/ML VIAL IV SCH ×4 (01:43→22:44)
[2021-05-25 04:00] VITALS: BP 131/71
[2021-05-25] MEDS: BLOOD SUGAR DIAGNOSTIC STRIP TEST SCH ×4 (06:25→19:59)
[2021-05-25 06:43] LABS: CHLORIDE 99 mEq/L (98-107)
[2021-05-25 06:47] LABS: BASOPHILS % 0.2 % (0.0-2.0); HEMATOCRIT. 31.8 % (42.0-52.0); HEMOGLOBIN. 10.3 g/dL (14.0-18.0); MEAN CORPUSCULAR HEMOGLOBIN 27.2 pg (28.0-32.0); MEAN CORPUSCULAR VOLUME 83.9 fL (80.0-94.0); MEAN PLATELET VOLUME 8.5 fl (7.4-10.4); MONOCYTES % 1.9 % (2.0-8.0); NEUTROPHILS % 88.9 % (40.0-76.0); PLATELET 154 x1000/uL (130-400); RED BLOOD CELL COUNT 3.79 mill/uL (4.7-6.1); RED CELL DISTRIBUTION WIDTH 17.6 % (11.6-14.6)
[2021-05-25 06:54] LABS: CREATINE KINASE 39 IU/L (39-308); T4 FREE 1.05 ng/dL (0.76-1.46)
[2021-05-25 06:55] LABS: HDL CHOLESTEROL 93 mg/dL (40-59)
[2021-05-25 06:57] LABS: LDL CHOLESTEROL 55 mg/dL (5-100)
[2021-05-25 07:02] LABS: CREATINE KINASE MB FRACTION 1.1 ng/mL (0.5-3.6)
[2021-05-25] MEDS: IPRATROPIUM/ALBUTEROL 0.5-3(2.5)MG/3ML NEB NEB SCH ×3 (07:57→20:36)
[2021-05-25 08:00] VITALS: BP 150/73
[2021-05-25] MEDS: ASPIRIN 81MG EC TABLET PO SCH (08:45)
[2021-05-25] MEDS: INSULIN LISPRO 100 UNITS/ML SUBCUT SCH ×4 (08:46→20:38)
[2021-05-25 12:10] VITALS: BP 142/70
[2021-05-25 16:00] VITALS: BP 130/67
[2021-05-25] MEDS ORDERED: LEVOFLOXACIN 500MG PREMIX 100 ML IV SCH (16:00)
[2021-05-25 20:00] VITALS: BP 133/72
[2021-05-25] MEDS: FAMOTIDINE 20MG TABLET PO SCH (20:37)
[2021-05-25] MEDS: GUAIFENESIN 200MG/10ML SUGAR FREE UDC PO PRN (21:42)
[2021-05-26] VITALS: BP 138/70
[2021-05-26] MEDS: IPRATROPIUM/ALBUTEROL 0.5-3(2.5)MG/3ML NEB NEB SCH ×3 (01:56→14:09)
[2021-05-26 04:00] VITALS: BP 120/67
[2021-05-26 06:50] LABS: HEMATOCRIT. 30.2 % (42.0-52.0); HEMOGLOBIN. 9.9 g/dL (14.0-18.0); MEAN CORPUSCULAR HEMOGLOBIN 27.4 pg (28.0-32.0); MEAN CORPUSCULAR VOLUME 83.7 fL (80.0-94.0); MEAN PLATELET VOLUME 8.8 fl (7.4-10.4); PLATELET 144 x1000/uL (130-400); RED BLOOD CELL COUNT 3.61 mill/uL (4.7-6.1); RED CELL DISTRIBUTION WIDTH 18.1 % (11.6-14.6)
[2021-05-26 06:51] LABS: CHLORIDE 101 mEq/L (98-107)
[2021-05-26] MEDS: BLOOD SUGAR DIAGNOSTIC STRIP TEST SCH ×3 (07:19→17:20)
[2021-05-26] MEDS: METHYLPREDNISOLONE SOD SUCC 40 MG/ML VIAL IV SCH ×2 (07:38→15:30)
[2021-05-26 08:07] VITALS: BP 128/71
[2021-05-26] MEDS: ASPIRIN 81MG EC TABLET PO SCH (08:37)
[2021-05-26] MEDS: INSULIN LISPRO 100 UNITS/ML SUBCUT SCH ×3 (08:40→17:50)
[2021-05-26] MEDS: GUAIFENESIN 200MG/10ML SUGAR FREE UDC PO PRN (11:22)
[2021-05-26 12:00] VITALS: BP 131/72
[2021-05-26] MEDS ORDERED: P20 PO (12:00)
[2021-05-26] MEDS ORDERED: SODIUM POLYSTYRENE SULFONATE 15 G/60 ML BOT PO SCH (12:00)
[2021-05-26 15:52] VITALS: BP 122/66
[2021-05-26 16:25] VITALS: BP 127/71
[2021-05-26] MEDS ORDERED: LEVOFLOXACIN 500MG TABLET PO SCH (17:00)
[2021-05-27 14:05] LABS: PLATELET ESTIMATE NORMAL
== END 2021-05-26 20:20 | disposition home or self-care (01) | DRG 190 ==
LOC: ER 08:49 → MICUSO 18:04 → 6WST 22:47
PROVIDERS: ADMIT Internal Medicine; ATTEND Internal Medicine
PROC: 5A09357 Assistance with Respiratory Ventilation, Less than 24 Consecutive Hours, Continuous Positive Airway Pressure (ICD-10-PCS; principal; 2021-05-24)
DX: J44.1 Chronic obstructive pulmonary disease with (acute) exacerbation (principal); J96.01 Acute respiratory failure with hypoxia; J98.11 Atelectasis; I43 Cardiomyopathy in diseases classified elsewhere; J06.9 Acute upper respiratory infection, unspecified; D64.9 Anemia, unspecified; E11.65 Type 2 diabetes mellitus with hyperglycemia; E87.5 Hyperkalemia; I11.0 Hypertensive heart disease with heart failure; N40.0 Benign prostatic hyperplasia without lower urinary tract symptoms; E78.00 Pure hypercholesterolemia, unspecified; I50.9 Heart failure, unspecified; Z79.84 Long term (current) use of oral hypoglycemic drugs; Z79.899 Other long term (current) drug therapy; Z82.49 Family history of ischemic heart disease and other diseases of the circulatory system; Z82.5 Family history of asthma and other chronic lower respiratory diseases; Z87.19 Personal history of other diseases of the digestive system; Z95.810 Presence of automatic (implantable) cardiac defibrillator; Z79.82 Long term (current) use of aspirin; Z79.51 Long term (current) use of inhaled steroids; K29.70 Gastritis, unspecified, without bleeding; K57.90 Diverticulosis of intestine, part unspecified, without perforation or abscess without bleeding; K64.8 Other hemorrhoids; I48.91 Unspecified atrial fibrillation
CPT/HCPCS: 36415; 71045; 80048; 80053; 80061; 82550; 82553; 82962; 83036; 83880; 84439; 84443; 84484; 85025; 86850; 86900; 93005; 93970; 94640; 94660; 97162; 99291; J1200; J1815; J1940; J1956; J2920; J2930; J3475

== ENCOUNTER 2021-06-20 08:06 | Inpatient (IN) | payer OTHER ==
[~2021-06-20] VITALS: Ht 182.9 cm; Wt 100.2 kg
[2021-06-20] MEDS ORDERED: METHYLPREDNISOLONE SOD SUCC 125 MG/2 ML VIAL IV STA (08:20)
[2021-06-20] MEDS ORDERED: IPRATROPIUM BROMIDE (0.02%) 0.5MG/2.5ML NEB HHN STA (08:20)
[2021-06-20] MEDS ORDERED: ALBUTEROL (0.083%) 2.5MG/3ML NEB HHN STA (08:20)
[2021-06-20 08:57] LABS: BASOPHILS % 0.8 % (0.0-2.0); EOSINOPHILS % 6.5 % (0.0-5.0); HEMATOCRIT. 31.1 % (42.0-52.0); HEMOGLOBIN. 9.8 g/dL (14.0-18.0); LYMPHOCYTES % 25.4 % (20.0-50.0); MEAN CORPUSCULAR HEMOGLOBIN 27.5 pg (28.0-32.0); MEAN CORPUSCULAR VOLUME 87.8 fL (80.0-94.0); MEAN PLATELET VOLUME 8.6 fl (7.4-10.4); MONOCYTES % 8.1 % (2.0-8.0); NEUTROPHILS % 59.2 % (40.0-76.0); PLATELET 173 x1000/uL (130-400); RED BLOOD CELL COUNT 3.54 mill/uL (4.7-6.1); RED CELL DISTRIBUTION WIDTH 17.1 % (11.6-14.6)
[2021-06-20 09:01] LABS: CHLORIDE 103 mEq/L (98-107)
[2021-06-20] MEDS ORDERED: DIPHENHYDRAMINE 50MG/ML VIAL IV PRN (16:15)
[2021-06-20] MEDS ORDERED: MAGNESIUM/ALUMINUM HYDROXIDE/SIMETHICONE 30ML UDC PO PRN (16:15)
[2021-06-20] MEDS ORDERED: ONDANSETRON HCL 4MG/2ML INJ IV PRN (16:15)
[2021-06-20] MEDS ORDERED: DEXTROSE 50% WATER 50ML SYRINGE IV PRN (16:15)
[2021-06-20] MEDS ORDERED: SODIUM POLYSTYRENE SULFONATE 15 G/60 ML BOT PO NR (16:15)
[2021-06-20] MEDS ORDERED: NA PHOS,M-B/NA PHOS,DI-BA ENEMA 118ML PR PRN (16:15)
[2021-06-20] MEDS ORDERED: HYDROCODONE/ACETAMINOPHEN 5/325MG TABLET PO PRN (16:15)
[2021-06-20] MEDS ORDERED: IPRATROPIUM/ALBUTEROL 0.5-3(2.5)MG/3ML NEB NEB PRN (16:15)
[2021-06-20] MEDS ORDERED: LORAZEPAM 0.5MG TABLET PO PRN (16:15)
[2021-06-20] MEDS ORDERED: DOCUSATE SODIUM 100MG CAPSULE PO PRN (16:15)
[2021-06-20] MEDS ORDERED: ACETAMINOPHEN 650MG SUPP PR PRN ×2 (16:15)
[2021-06-20] MEDS ORDERED: ACETAMINOPHEN 650MG/20.3ML UDC GT PRN (16:15)
[2021-06-20 16:41] LABS: CLARITY URINE TURBID (CLEAR); COLOR URINE YELLOW (YELLOW); KETONES URINE TRACE (NEGATIVE); LEUKOCYTE ESTERASE URINE 2+ (NEGATIVE); NITRITE URINE NEGATIVE (NEGATIVE); OCCULT BLOOD URINE 1+ (NEGATIVE); PH URINE 5.5 (4.5-8.0); PROTEIN URINE TRACE (NEGATIVE); SPECIFIC GRAVITY URINE 1.015 (1.005-1.030); UROBILINOGEN URINE 0.2 E.U./dL (0.2-1.0)
[2021-06-20] MEDS: BLOOD SUGAR DIAGNOSTIC STRIP TEST SCH ×3 (17:00→20:51)
[2021-06-20] MEDS ORDERED: CEFTRIAXONE 1 G PREMIX 50 ML IV SCH (17:00)
[2021-06-20 17:10] VITALS: BP 123/66
[2021-06-20 17:15] LABS: PROTHROMBIN TIME 11.1 sec (9.6-11.0)
[2021-06-20 17:47] VITALS: BP 123/66
[2021-06-20] MEDS ORDERED: AZITHROMYCIN 500 MG in DEXT 5% WATER 250 ML IV SCH (18:00)
[2021-06-20] MEDS: METHYLPREDNISOLONE SOD SUCC 125 MG/2 ML VIAL IV SCH (18:15)
[2021-06-20] MEDS: INSULIN LISPRO 100 UNITS/ML SUBCUT SCH ×2 (18:23→21:01)
[2021-06-20 20:00] VITALS: BP 129/71
[2021-06-20] MEDS: FAMOTIDINE 20MG TABLET PO SCH (20:50)
[2021-06-20] MEDS: AZITHROMYCIN 500 MG in DEXT 5% WATER 250 ML IV SCH (21:01)
[2021-06-20] MEDS: CEFTRIAXONE 1,000 MG in DEXTROSE 5% WATER 50 ML IV SCH (21:01)
[2021-06-20] MEDS: IPRATROPIUM/ALBUTEROL 0.5-3(2.5)MG/3ML NEB NEB SCH (21:52)
[2021-06-20] MEDS: GUAIFENESIN 200MG/10ML SUGAR FREE UDC PO PRN (22:54)
[2021-06-21] VITALS: BP 135/75
[2021-06-21 00:28] LABS: CREATINE KINASE MB FRACTION 1.6 ng/mL (0.5-3.6)
[2021-06-21 04:00] VITALS: BP 142/74
[2021-06-21] MEDS: IPRATROPIUM/ALBUTEROL 0.5-3(2.5)MG/3ML NEB NEB SCH ×4 (04:39→21:38)
[2021-06-21] MEDS: METHYLPREDNISOLONE SOD SUCC 125 MG/2 ML VIAL IV SCH ×2 (06:14→18:05)
[2021-06-21] MEDS: BLOOD SUGAR DIAGNOSTIC STRIP TEST SCH ×4 (06:15→21:13)
[2021-06-21 06:50] LABS: CHLORIDE 104 mEq/L (98-107)
[2021-06-21 07:01] LABS: LDL CHOLESTEROL 58 mg/dL (5-100)
[2021-06-21 07:02] LABS: CREATINE KINASE 78 IU/L (39-308); CREATINE KINASE MB FRACTION 1.4 ng/mL (0.5-3.6); HDL CHOLESTEROL 70 mg/dL (40-59)
[2021-06-21 07:05] LABS: BASOPHILS % 0.5 % (0.0-2.0); EOSINOPHILS % 1.1 % (0.0-5.0); HEMATOCRIT. 29.2 % (42.0-52.0); HEMOGLOBIN. 9.5 g/dL (14.0-18.0); LYMPHOCYTES % 24.7 % (20.0-50.0); MEAN CORPUSCULAR HEMOGLOBIN 27.6 pg (28.0-32.0); MEAN CORPUSCULAR VOLUME 84.5 fL (80.0-94.0); MEAN PLATELET VOLUME 8.9 fl (7.4-10.4); MONOCYTES % 8.5 % (2.0-8.0); NEUTROPHILS % 65.2 % (40.0-76.0); PLATELET 176 x1000/uL (130-400); RED BLOOD CELL COUNT 3.46 mill/uL (4.7-6.1); RED CELL DISTRIBUTION WIDTH 16.1 % (11.6-14.6)
[2021-06-21 07:13] LABS: T4 FREE 1.28 ng/dL (0.76-1.46)
[2021-06-21 07:55] VITALS: BP 138/73
[2021-06-21] MEDS: ASPIRIN 81MG EC TABLET PO SCH (08:09)
[2021-06-21] MEDS: FUROSEMIDE 40MG/4ML VIAL IV SCH (08:09)
[2021-06-21] MEDS: INSULIN LISPRO 100 UNITS/ML SUBCUT SCH ×4 (08:10→21:23)
[2021-06-21 11:02] VITALS: BP 143/74
[2021-06-21] MEDS ORDERED: NALOXONE HCL 0.4MG/ML VIAL IV PRN (11:15)
[2021-06-21] MEDS: CLOPIDOGREL 75MG TABLET PO SCH (11:34)
[2021-06-21 15:30] VITALS: BP 131/66
[2021-06-21 20:00] VITALS: BP 147/62
[2021-06-21] MEDS: AZITHROMYCIN 500 MG in DEXT 5% WATER 250 ML IV SCH (20:06)
[2021-06-21] MEDS: CEFTRIAXONE 1,000 MG in DEXTROSE 5% WATER 50 ML IV SCH (20:06)
[2021-06-21] MEDS: FAMOTIDINE 20MG TABLET PO SCH (21:13)
[2021-06-21] MEDS: INSULIN GLARGINE UD 100 UNITS/ML SYR SUBCUT SCH (21:27)
[2021-06-21] MEDS: GUAIFENESIN 200MG/10ML SUGAR FREE UDC PO PRN (23:38)
[2021-06-22] VITALS: BP 140/77
[2021-06-22 04:00] VITALS: BP 125/68
[2021-06-22] MEDS: BLOOD SUGAR DIAGNOSTIC STRIP TEST SCH ×4 (06:12→21:51)
[2021-06-22] MEDS: METHYLPREDNISOLONE SOD SUCC 125 MG/2 ML VIAL IV SCH ×2 (06:12→17:57)
[2021-06-22 08:00] VITALS: BP 107/71
[2021-06-22] MEDS: ASPIRIN 81MG EC TABLET PO SCH (08:50)
[2021-06-22] MEDS: FUROSEMIDE 40MG/4ML VIAL IV SCH (08:50)
[2021-06-22] MEDS: CLOPIDOGREL 75MG TABLET PO SCH (08:50)
[2021-06-22] MEDS: INSULIN LISPRO 100 UNITS/ML SUBCUT SCH ×4 (08:51→21:54)
[2021-06-22] MEDS: IPRATROPIUM/ALBUTEROL 0.5-3(2.5)MG/3ML NEB NEB SCH ×3 (09:40→21:00)
[2021-06-22 09:52] LABS: BASOPHILS % 0.5 % (0.0-2.0); EOSINOPHILS % 0.8 % (0.0-5.0); HEMATOCRIT. 32.3 % (42.0-52.0); HEMOGLOBIN. 10.3 g/dL (14.0-18.0); LYMPHOCYTES % 11.5 % (20.0-50.0); MEAN CORPUSCULAR HEMOGLOBIN 27.4 pg (28.0-32.0); MEAN CORPUSCULAR VOLUME 85.9 fL (80.0-94.0); MEAN PLATELET VOLUME 8.8 fl (7.4-10.4); MONOCYTES % 3.7 % (2.0-8.0); NEUTROPHILS % 83.5 % (40.0-76.0); PLATELET 205 x1000/uL (130-400); RED BLOOD CELL COUNT 3.76 mill/uL (4.7-6.1); RED CELL DISTRIBUTION WIDTH 16.4 % (11.6-14.6)
[2021-06-22 10:08] LABS: CHLORIDE 99 mEq/L (98-107)
[2021-06-22] MEDS: INSULIN GLARGINE UD 100 UNITS/ML SYR SUBCUT SCH ×2 (10:12→21:54)
[2021-06-22] MEDS ORDERED: IOHEXOL-350 100 ML BOTTLE ONE (10:45)
[2021-06-22 12:07] VITALS: BP 145/82
[2021-06-22 16:00] VITALS: BP 139/73
[2021-06-22 20:00] VITALS: BP 138/71
[2021-06-22] MEDS: AZITHROMYCIN 500 MG in DEXT 5% WATER 250 ML IV SCH (20:41)
[2021-06-22] MEDS: CEFTRIAXONE 1,000 MG in DEXTROSE 5% WATER 50 ML IV SCH (20:41)
[2021-06-22] MEDS: FAMOTIDINE 20MG TABLET PO SCH (21:51)
[2021-06-23] VITALS: BP 133/95
[2021-06-23] MEDS: IPRATROPIUM/ALBUTEROL 0.5-3(2.5)MG/3ML NEB NEB SCH ×3 (01:01→13:29)
[2021-06-23 04:00] VITALS: BP 135/76
[2021-06-23] MEDS: METHYLPREDNISOLONE SOD SUCC 125 MG/2 ML VIAL IV SCH (06:28)
[2021-06-23] MEDS: BLOOD SUGAR DIAGNOSTIC STRIP TEST SCH ×3 (06:28→17:27)
[2021-06-23] MEDS ORDERED: HEPARIN SODIUM 1,000 UNIT/1ML VIAL IV ONE (08:41)
[2021-06-23] MEDS ORDERED: LIDOCAINE HCL 1% 20ML VIAL (Pyxis) INJ ONE (08:42)
[2021-06-23] MEDS ORDERED: IODIXANOL 320MG/ML 100 ML BOTTLE IV ONE (08:42)
[2021-06-23] MEDS ORDERED: FENTANYL CITRATE/PF 50MCG/ML 2ML VIAL ONE ×2 (08:55→12:36)
[2021-06-23] MEDS ORDERED: MIDAZOLAM HCL 2 MG/2 ML VIAL ONE ×2 (08:55→12:36)
[2021-06-23] MEDS ORDERED: IOHEXOL-300 100 ML BOTTLE ONE (09:40)
[2021-06-23] MEDS: ASPIRIN 81MG EC TABLET PO SCH (11:17)
[2021-06-23] MEDS: CLOPIDOGREL 75MG TABLET PO SCH (11:17)
[2021-06-23] MEDS: INSULIN LISPRO 100 UNITS/ML SUBCUT SCH ×3 (11:22→17:29)
[2021-06-23] MEDS: INSULIN GLARGINE UD 100 UNITS/ML SYR SUBCUT SCH (11:25)
[2021-06-23] MEDS: FUROSEMIDE 40MG/4ML VIAL IV SCH (11:33)
[2021-06-23] MEDS ORDERED: FENTANYL CITRATE/PF 50MCG/ML 5ML VIAL ONE (12:34)
[2021-06-23] MEDS ORDERED: MIDAZOLAM HCL 5 MG/5 ML VIAL ONE (12:34)
[2021-06-23] MEDS ORDERED: ASPI-1497 MT (14:18)
[2021-06-23] MEDS ORDERED: CLOP75TA4 MT (14:18)
[2021-06-23] MEDS ORDERED: P20 PO (14:18)
[2021-06-23 16:26] LABS: HEMOGLOBIN 10.2 g/dL (14.0-18.0)
[2021-06-23] MEDS ORDERED: METHYLPREDNISOLONE SOD SUCC 40 MG/ML VIAL IV SCH (18:00)
[2021-06-23 19:36] VITALS: BP 146/80
[2021-06-23 20:00] VITALS: BP 153/86
== END 2021-06-23 20:45 | disposition home health service (06) | DRG 253 ==
LOC: ER 08:06 → 6WST 14:09 → ENRESERV 16:14
PROVIDERS: ADMIT Internal Medicine; ATTEND Internal Medicine
PROC: 047N3ZZ Dilation of Left Popliteal Artery, Percutaneous Approach (ICD-10-PCS; principal; 2021-06-23)
PROC: B41G1ZZ Fluoroscopy of Left Lower Extremity Arteries using Low Osmolar Contrast (ICD-10-PCS; 2021-06-23)
DX: I21.4 Non-ST elevation (NSTEMI) myocardial infarction (principal); J44.1 Chronic obstructive pulmonary disease with (acute) exacerbation; I42.9 Cardiomyopathy, unspecified; J06.9 Acute upper respiratory infection, unspecified; I25.2 Old myocardial infarction; D64.9 Anemia, unspecified; Z95.810 Presence of automatic (implantable) cardiac defibrillator; I11.0 Hypertensive heart disease with heart failure; I50.9 Heart failure, unspecified; E87.5 Hyperkalemia; E11.65 Type 2 diabetes mellitus with hyperglycemia; N40.0 Benign prostatic hyperplasia without lower urinary tract symptoms; Z20.822 Contact with and (suspected) exposure to COVID-19; I48.91 Unspecified atrial fibrillation; E78.00 Pure hypercholesterolemia, unspecified; E11.51 Type 2 diabetes mellitus with diabetic peripheral angiopathy without gangrene; I70.222 Atherosclerosis of native arteries of extremities with rest pain, left leg; I70.221 Atherosclerosis of native arteries of extremities with rest pain, right leg; I25.10 Atherosclerotic heart disease of native coronary artery without angina pectoris; E78.5 Hyperlipidemia, unspecified; E87.6 Hypokalemia; Z79.899 Other long term (current) drug therapy; Z79.84 Long term (current) use of oral hypoglycemic drugs; Z79.51 Long term (current) use of inhaled steroids; Z79.82 Long term (current) use of aspirin; Z82.49 Family history of ischemic heart disease and other diseases of the circulatory system; Z82.5 Family history of asthma and other chronic lower respiratory diseases; Z79.01 Long term (current) use of anticoagulants; Z79.02 Long term (current) use of antithrombotics/antiplatelets; Z87.19 Personal history of other diseases of the digestive system; Z87.891 Personal history of nicotine dependence
CPT/HCPCS: 36246; 36415; 71045; 75635; 75710; 78582; 80048; 80053; 80061; 81003; 82550; 82553; 82962; 83880; 84439; 84443; 84484; 85014; 85018; 85025; 85347; 87426; 87804; 93005; 93923; 94640; 97162; 99291; A9558; C1714; C1725; C1760; C1769; C1887; C1893; C1894; C9803; J0456; J0696; J1644; J1815; J1940; J2250; J2930; J3010; J3490; J7040; J7060; Q9967; U0003; U0005

== ENCOUNTER 2021-07-18 11:26 | Emergency (ER) | payer OTHER ==
[~2021-07-18] VITALS: Ht 185.4 cm; Wt 63.0 kg
[~2021-07-18 11:26] MED LIST changes: +CLOP-31 MT
[2021-07-18] MEDS ORDERED: ADENOSINE 3 MG/ML 2ML VIAL IV ONE (11:45)
[2021-07-18 12:04] LABS: CHLORIDE 100 mEq/L (98-107)
[2021-07-18 12:08] LABS: BASOPHILS % 0.8 % (0.0-2.0); EOSINOPHILS % 3.4 % (0.0-5.0); HEMOGLOBIN. 8.9 g/dL (14.0-18.0); LYMPHOCYTES % 24.9 % (20.0-50.0); MEAN CORPUSCULAR HEMOGLOBIN 27.6 pg (28.0-32.0); MEAN CORPUSCULAR VOLUME 86.5 fL (80.0-94.0); MEAN PLATELET VOLUME 8.6 fl (7.4-10.4); NEUTROPHILS % 62.9 % (40.0-76.0); PLATELET 216 x1000/uL (130-400); RED BLOOD CELL COUNT 3.24 mill/uL (4.7-6.1); RED CELL DISTRIBUTION WIDTH 15.3 % (11.6-14.6)
[2021-07-18 12:11] LABS: ETHANOL BLOOD < 10 mg/dL
[2021-07-18] MEDS ORDERED: DILTIAZEM HCL 120MG CAPSULE CD 24HR PO ONE (12:30)
[2021-07-18 15:20] LABS: CLARITY URINE CLEAR (CLEAR); COLOR URINE YELLOW (YELLOW); KETONES URINE NEGATIVE (NEGATIVE); LEUKOCYTE ESTERASE URINE NEGATIVE (NEGATIVE); NITRITE URINE NEGATIVE (NEGATIVE); OCCULT BLOOD URINE NEGATIVE (NEGATIVE); PH URINE 5.5 (4.5-8.0); PROTEIN URINE NEGATIVE (NEGATIVE); SPECIFIC GRAVITY URINE 1.013 (1.005-1.030); UROBILINOGEN URINE 0.2 E.U./dL (0.2-1.0)
[2021-07-18 15:49] LABS: *AMPHETAMINES SCREEN URINE NEGATIVE (NEGATIVE); *BARBITURATES SCREEN URINE NEGATIVE (NEGATIVE); *BENZODIAZEPINES SCREEN URINE NEGATIVE (NEGATIVE); *COCAINE SCREEN URINE NEGATIVE (NEGATIVE); METHADONE URINE SCREEN NEGATIVE (NEGATIVE); OPIATES URINE SCREEN NEGATIVE (NEGATIVE)
[2021-07-18 15:50] LABS: CANNABINOID URINE SCREEN NEGATIVE (NEGATIVE); PHENCYCLIDINE URINE SCREEN NEGATIVE (NEGATIVE)
[2021-07-18] MEDS ORDERED: DILT120C88 MT (16:52)
[2021-07-18 18:00] VITALS: BP 111/66
== END 2021-07-18 19:06 | disposition home or self-care (01) ==
LOC: ER 11:26 → CANBEDREQ 19:54
DX: R07.89 Other chest pain (principal); J44.1 Chronic obstructive pulmonary disease with (acute) exacerbation; E11.9 Type 2 diabetes mellitus without complications; I10 Essential (primary) hypertension; Z79.899 Other long term (current) drug therapy
CPT/HCPCS: 36415; 71045; 80053; 80305; 80320; 81003; 83605; 83880; 84484; 85025; 87040; 87086; 93005; 96374; 99291; J0153; G0480

== ENCOUNTER 2021-07-23 10:05 | Inpatient (IN) | payer OTHER, MEDICARE ==
[~2021-07-23] VITALS: Ht 185.4 cm; Wt 65.0 kg
[~2021-07-23 10:05] MED LIST changes: +DILT120C88 MT; -P20 PO
[2021-07-23 11:22] LABS: CHLORIDE 97 mEq/L (98-107)
[2021-07-23 11:23] LABS: BASOPHILS % 0.2 % (0.0-2.0); HEMATOCRIT. 29.6 % (42.0-52.0); HEMOGLOBIN. 9.3 g/dL (14.0-18.0); LYMPHOCYTES % 10.9 % (20.0-50.0); MEAN CORPUSCULAR HEMOGLOBIN 27.3 pg (28.0-32.0); MEAN CORPUSCULAR VOLUME 86.8 fL (80.0-94.0); MEAN PLATELET VOLUME 8.2 fl (7.4-10.4); MONOCYTES % 3.1 % (2.0-8.0); NEUTROPHILS % 85.8 % (40.0-76.0); PLATELET 333 x1000/uL (130-400); RED BLOOD CELL COUNT 3.41 mill/uL (4.7-6.1); RED CELL DISTRIBUTION WIDTH 15.6 % (11.6-14.6)
[2021-07-23] MEDS: ASPIRIN 325MG EC TABLET PO ONE ×2 (11:24→12:15)
[2021-07-23] MEDS ORDERED: MAGNESIUM 4 G PREMIX 100 ML IV ONE (12:00)
[2021-07-23] MEDS ORDERED: IPRATROPIUM/ALBUTEROL 0.5-3(2.5)MG/3ML NEB NEB PRN (13:00)
[2021-07-23] MEDS ORDERED: CLONIDINE 0.1MG TABLET PO PRN (13:00)
[2021-07-23] MEDS ORDERED: ACETAMINOPHEN 650MG SUPP PR PRN (13:00)
[2021-07-23] MEDS ORDERED: NA PHOS,M-B/NA PHOS,DI-BA ENEMA 118ML PR PRN (13:00)
[2021-07-23] MEDS ORDERED: ACETAMINOPHEN 325MG TABLET PO PRN (13:00)
[2021-07-23] MEDS ORDERED: MORPHINE SULFATE 2 MG/ML CPJ (NOT FOR IM USE) IV PRN (13:00)
[2021-07-23] MEDS ORDERED: DEXTROSE 50% WATER 50ML SYRINGE IV PRN (13:00)
[2021-07-23] MEDS ORDERED: LORAZEPAM 0.5MG TABLET PO PRN (13:00)
[2021-07-23] MEDS ORDERED: ONDANSETRON HCL 4MG/2ML INJ IV PRN (13:00)
[2021-07-23] MEDS ORDERED: DOCUSATE SODIUM 100MG CAPSULE PO PRN (13:00)
[2021-07-23] MEDS ORDERED: DIPHENHYDRAMINE 50MG/ML VIAL IV PRN (13:00)
[2021-07-23] MEDS ORDERED: MAGNESIUM/ALUMINUM HYDROXIDE/SIMETHICONE 30ML UDC PO PRN (13:00)
[2021-07-23] MEDS ORDERED: HYDROCODONE/ACETAMINOPHEN 5/325MG TABLET PO PRN (13:00)
[2021-07-23] MEDS: PREDNISONE 20MG TABLET PO SCH (13:52)
[2021-07-23] MEDS: INSULIN LISPRO 100 UNITS/ML SUBCUT SCH ×3 (13:53→21:00)
[2021-07-23] MEDS: BLOOD SUGAR DIAGNOSTIC STRIP TEST SCH ×2 (13:53→21:00)
[2021-07-23] MEDS ORDERED: DILTIAZEM HCL 120MG CAPSULE CD 24HR PO NR (14:00)
[2021-07-23] MEDS: FAMOTIDINE 20MG TABLET PO SCH (21:27)
[2021-07-23 22:13] VITALS: BP 141/77
[2021-07-23] MEDS: CARVEDILOL 6.25 MG TABLET PO SCH (23:20)
[2021-07-23 23:44] VITALS: BP 141/77
[2021-07-24] VITALS (12 sets, daily range): BP systolic 102–140; BP diastolic 65–79
[2021-07-24] MEDS: IPRATROPIUM/ALBUTEROL 0.5-3(2.5)MG/3ML NEB HHN SCH ×4 (01:29→21:09)
[2021-07-24 01:50] LABS: CLARITY URINE CLEAR (CLEAR); COLOR URINE YELLOW (YELLOW); KETONES URINE NEGATIVE (NEGATIVE); LEUKOCYTE ESTERASE URINE NEGATIVE (NEGATIVE); NITRITE URINE NEGATIVE (NEGATIVE); OCCULT BLOOD URINE NEGATIVE (NEGATIVE); PROTEIN URINE TRACE (NEGATIVE); SPECIFIC GRAVITY URINE 1.017 (1.005-1.030); UROBILINOGEN URINE 0.2 E.U./dL (0.2-1.0)
[2021-07-24] MEDS ORDERED: METF-414 MT ×2 (04:34)
[2021-07-24] MEDS ORDERED: P20 MT (04:34)
[2021-07-24] MEDS: BLOOD SUGAR DIAGNOSTIC STRIP TEST SCH ×4 (06:27→20:32)
[2021-07-24 07:32] LABS: BASOPHILS % 0.1 % (0.0-2.0); EOSINOPHILS % 0.5 % (0.0-5.0); HEMATOCRIT. 28.2 % (42.0-52.0); HEMOGLOBIN. 9.4 g/dL (14.0-18.0); LYMPHOCYTES % 19.9 % (20.0-50.0); MEAN CORPUSCULAR HEMOGLOBIN 28.2 pg (28.0-32.0); MEAN CORPUSCULAR VOLUME 85.1 fL (80.0-94.0); MEAN PLATELET VOLUME 8.1 fl (7.4-10.4); MONOCYTES % 9.7 % (2.0-8.0); NEUTROPHILS % 69.8 % (40.0-76.0); PLATELET 330 x1000/uL (130-400); RED BLOOD CELL COUNT 3.31 mill/uL (4.7-6.1); RED CELL DISTRIBUTION WIDTH 15.4 % (11.6-14.6)
[2021-07-24] MEDS: INSULIN LISPRO 100 UNITS/ML SUBCUT SCH ×4 (08:02→20:31)
[2021-07-24] MEDS: CARVEDILOL 6.25 MG TABLET PO SCH (08:03)
[2021-07-24] MEDS: PREDNISONE 20MG TABLET PO SCH (08:04)
[2021-07-24] MEDS: BUDESONIDE 0.5MG/2ML NEB HHN SCH (08:47)
[2021-07-24 12:37] LABS: CHLORIDE 99 mEq/L (98-107)
[2021-07-24 13:04] LABS: CREATINE KINASE 23 IU/L (39-308); CREATINE KINASE MB FRACTION < 1.0 ng/mL (0.5-3.6); LDL CHOLESTEROL 62 mg/dL (5-100)
[2021-07-24 13:05] LABS: HDL CHOLESTEROL 58 mg/dL (40-59); T4 FREE 1.07 ng/dL (0.76-1.46)
[2021-07-24] MEDS: CLOPIDOGREL 75MG TABLET PO SCH (15:39)
[2021-07-24] MEDS: ASPIRIN 81MG EC TABLET PO SCH (15:39)
[2021-07-24] MEDS: GUAIFENESIN 200MG/10ML SUGAR FREE UDC PO PRN (17:45)
[2021-07-24] MEDS: DRONEDARONE 400 MG PO SCH (17:48)
[2021-07-24] MEDS: CARVEDILOL 12.5MG TABLET PO SCH (20:31)
[2021-07-24] MEDS: FAMOTIDINE 20MG TABLET PO SCH (20:31)
[2021-07-25] VITALS (17 sets, daily range): BP systolic 95–135; BP diastolic 54–83
[2021-07-25] MEDS: IPRATROPIUM/ALBUTEROL 0.5-3(2.5)MG/3ML NEB HHN SCH ×2 (00:35→08:51)
[2021-07-25] MEDS: BLOOD SUGAR DIAGNOSTIC STRIP TEST SCH ×4 (06:44→20:37)
[2021-07-25] MEDS: INSULIN LISPRO 100 UNITS/ML SUBCUT SCH ×4 (06:51→20:36)
[2021-07-25] MEDS: CLOPIDOGREL 75MG TABLET PO SCH (08:17)
[2021-07-25] MEDS: CARVEDILOL 12.5MG TABLET PO SCH ×3 (08:17→20:36)
[2021-07-25] MEDS: ASPIRIN 81MG EC TABLET PO SCH (08:17)
[2021-07-25] MEDS: PREDNISONE 20MG TABLET PO SCH (08:17)
[2021-07-25] MEDS: DRONEDARONE 400 MG PO SCH ×2 (08:18→17:57)
[2021-07-25] MEDS: BUDESONIDE 0.5MG/2ML NEB HHN SCH ×3 (08:50→21:29)
[2021-07-25] MEDS ORDERED: NALOXONE HCL 0.4MG/ML VIAL IV PRN (13:15)
[2021-07-25] MEDS: GUAIFENESIN 200MG/10ML SUGAR FREE UDC PO PRN (14:13)
[2021-07-25 15:41] LABS: BASOPHILS % 0.1 % (0.0-2.0); EOSINOPHILS % 0.6 % (0.0-5.0); HEMATOCRIT. 30.4 % (42.0-52.0); HEMOGLOBIN. 9.7 g/dL (14.0-18.0); LYMPHOCYTES % 14.1 % (20.0-50.0); MEAN CORPUSCULAR HEMOGLOBIN 27.4 pg (28.0-32.0); MEAN CORPUSCULAR VOLUME 86.1 fL (80.0-94.0); MEAN PLATELET VOLUME 7.6 fl (7.4-10.4); NEUTROPHILS % 79.2 % (40.0-76.0); PLATELET 363 x1000/uL (130-400); RED BLOOD CELL COUNT 3.53 mill/uL (4.7-6.1); RED CELL DISTRIBUTION WIDTH 15.9 % (11.6-14.6)
[2021-07-25 15:48] LABS: CHLORIDE 100 mEq/L (98-107)
[2021-07-25] MEDS: METHYLPREDNISOLONE SOD SUCC 40 MG/ML VIAL IV SCH (16:37)
[2021-07-25] MEDS: IPRATROPIUM BROMIDE (0.02%) 0.5MG/2.5ML NEB HHN SCH ×2 (16:46→21:29)
[2021-07-25] MEDS: FAMOTIDINE 20MG TABLET PO SCH (20:33)
[2021-07-26] VITALS (20 sets, daily range): BP systolic 95–134; BP diastolic 41–76
[2021-07-26] MEDS: IPRATROPIUM BROMIDE (0.02%) 0.5MG/2.5ML NEB HHN SCH ×5 (01:15→22:45)
[2021-07-26] MEDS: INSULIN LISPRO 100 UNITS/ML SUBCUT SCH ×4 (06:28→20:27)
[2021-07-26] MEDS: BLOOD SUGAR DIAGNOSTIC STRIP TEST SCH ×4 (06:28→20:18)
[2021-07-26 06:51] LABS: BASOPHILS % 0.1 % (0.0-2.0); EOSINOPHILS % 0.8 % (0.0-5.0); HEMATOCRIT. 28.4 % (42.0-52.0); HEMOGLOBIN. 9.3 g/dL (14.0-18.0); LYMPHOCYTES % 17.9 % (20.0-50.0); MEAN CORPUSCULAR VOLUME 85.8 fL (80.0-94.0); MEAN PLATELET VOLUME 7.9 fl (7.4-10.4); MONOCYTES % 9.2 % (2.0-8.0); PLATELET 343 x1000/uL (130-400); RED BLOOD CELL COUNT 3.31 mill/uL (4.7-6.1); RED CELL DISTRIBUTION WIDTH 15.4 % (11.6-14.6)
[2021-07-26 07:18] LABS: CHLORIDE 99 mEq/L (98-107)
[2021-07-26] MEDS: BUDESONIDE 0.5MG/2ML NEB HHN SCH ×2 (07:53→22:50)
[2021-07-26] MEDS: CLOPIDOGREL 75MG TABLET PO SCH (08:30)
[2021-07-26] MEDS: METHYLPREDNISOLONE SOD SUCC 40 MG/ML VIAL IV SCH (08:30)
[2021-07-26] MEDS: ASPIRIN 81MG EC TABLET PO SCH (08:30)
[2021-07-26] MEDS: CARVEDILOL 12.5MG TABLET PO SCH ×2 (08:31→20:07)
[2021-07-26] MEDS: DRONEDARONE 400 MG PO SCH ×2 (08:32→17:27)
[2021-07-26] MEDS: GUAIFENESIN 200MG/10ML SUGAR FREE UDC PO PRN (14:56)
[2021-07-26] MEDS: FAMOTIDINE 20MG TABLET PO SCH (20:07)
[2021-07-27] VITALS (9 sets, daily range): BP systolic 91–146; BP diastolic 57–80
[2021-07-27] MEDS: BLOOD SUGAR DIAGNOSTIC STRIP TEST SCH ×2 (06:36→11:50)
[2021-07-27 07:12] LABS: BASOPHILS % 0.2 % (0.0-2.0); EOSINOPHILS % 1.7 % (0.0-5.0); HEMATOCRIT. 27.3 % (42.0-52.0); HEMOGLOBIN. 8.9 g/dL (14.0-18.0); LYMPHOCYTES % 21.1 % (20.0-50.0); MEAN CORPUSCULAR HEMOGLOBIN 27.9 pg (28.0-32.0); MEAN CORPUSCULAR VOLUME 85.9 fL (80.0-94.0); MEAN PLATELET VOLUME 7.8 fl (7.4-10.4); PLATELET 325 x1000/uL (130-400); RED BLOOD CELL COUNT 3.18 mill/uL (4.7-6.1); RED CELL DISTRIBUTION WIDTH 15.2 % (11.6-14.6)
[2021-07-27] MEDS: INSULIN LISPRO 100 UNITS/ML SUBCUT SCH ×2 (07:20→12:36)
[2021-07-27 08:38] LABS: CHLORIDE 103 mEq/L (98-107)
[2021-07-27] MEDS: METHYLPREDNISOLONE SOD SUCC 40 MG/ML VIAL IV SCH (08:41)
[2021-07-27] MEDS: CARVEDILOL 12.5MG TABLET PO SCH (08:42)
[2021-07-27] MEDS: DRONEDARONE 400 MG PO SCH (08:42)
[2021-07-27] MEDS: CLOPIDOGREL 75MG TABLET PO SCH (08:42)
[2021-07-27] MEDS: ASPIRIN 81MG EC TABLET PO SCH (08:42)
[2021-07-27] MEDS: BUDESONIDE 0.5MG/2ML NEB HHN SCH (09:00)
[2021-07-27] MEDS: IPRATROPIUM BROMIDE (0.02%) 0.5MG/2.5ML NEB HHN SCH ×2 (09:00→13:44)
[2021-07-27] MEDS ORDERED: P20 PO (13:50)
[2021-07-27] MEDS ORDERED: CARV6.2548 PO (13:50)
[2021-07-27] MEDS: GUAIFENESIN 200MG/10ML SUGAR FREE UDC PO PRN (14:26)
== END 2021-07-27 15:47 | disposition home or self-care (01) | DRG 309 ==
LOC: ER 10:19 → 3WST 11:45 → ENRESERV 18:03
PROVIDERS: ADMIT Internal Medicine; ATTEND Internal Medicine
PROC: 4B02XTZ Measurement of Cardiac Defibrillator, External Approach (ICD-10-PCS; 2021-07-25)
PROC: 02HV33Z Insertion of Infusion Device into Superior Vena Cava, Percutaneous Approach (ICD-10-PCS; principal; 2021-07-26)
PROC: B548ZZA Ultrasonography of Superior Vena Cava, Guidance (ICD-10-PCS; 2021-07-26)
DX: I47.1 Supraventricular tachycardia (principal); J44.1 Chronic obstructive pulmonary disease with (acute) exacerbation; I42.8 Other cardiomyopathies; I50.22 Chronic systolic (congestive) heart failure; E44.1 Mild protein-calorie malnutrition; Z68.1 Body mass index [BMI] 19.9 or less, adult; D50.9 Iron deficiency anemia, unspecified; E78.5 Hyperlipidemia, unspecified; E11.65 Type 2 diabetes mellitus with hyperglycemia; E83.42 Hypomagnesemia; E78.00 Pure hypercholesterolemia, unspecified; N40.0 Benign prostatic hyperplasia without lower urinary tract symptoms; I48.0 Paroxysmal atrial fibrillation; R07.9 Chest pain, unspecified; Z20.822 Contact with and (suspected) exposure to COVID-19; K21.9 Gastro-esophageal reflux disease without esophagitis; I11.0 Hypertensive heart disease with heart failure; I25.10 Atherosclerotic heart disease of native coronary artery without angina pectoris; I25.2 Old myocardial infarction; Z95.810 Presence of automatic (implantable) cardiac defibrillator; Z98.61 Coronary angioplasty status; Z82.5 Family history of asthma and other chronic lower respiratory diseases; Z82.49 Family history of ischemic heart disease and other diseases of the circulatory system; Z79.899 Other long term (current) drug therapy; K31.819 Angiodysplasia of stomach and duodenum without bleeding; I73.9 Peripheral vascular disease, unspecified; R06.03 Acute respiratory distress
CPT/HCPCS: 36415; 71045; 76937; 80048; 80053; 80061; 81003; 82550; 82553; 82962; 83735; 83880; 84439; 84443; 84484; 85025; 85379; 86850; 86900; 87426; 93005; 93970; 94640; 97162; 99285; C1725; J1815; J2920; J3475; J7512; J7626

== ENCOUNTER 2021-08-13 01:55 | Inpatient (IN) | payer OTHER ==
[~2021-08-13] VITALS: Ht 185.4 cm; Wt 64.4 kg
[~2021-08-13 01:55] MED LIST changes: -DILT120C88 MT; +METF-414 MT; -METF-415 MT; +P20 PO
[2021-08-13 03:07] LABS: BASOPHILS % 0.1 % (0.0-2.0); EOSINOPHILS % 0.1 % (0.0-5.0); HEMATOCRIT. 22.9 % (42.0-52.0); HEMOGLOBIN. 7.3 g/dL (14.0-18.0); LYMPHOCYTES % 10.1 % (20.0-50.0); MEAN CORPUSCULAR HEMOGLOBIN 27.5 pg (28.0-32.0); MEAN CORPUSCULAR VOLUME 86.2 fL (80.0-94.0); MEAN PLATELET VOLUME 8.3 fl (7.4-10.4); MONOCYTES % 4.7 % (2.0-8.0); PLATELET 202 x1000/uL (130-400); RED BLOOD CELL COUNT 2.66 mill/uL (4.7-6.1); RED CELL DISTRIBUTION WIDTH 15.8 % (11.6-14.6)
[2021-08-13 03:16] LABS: CHLORIDE 104 mEq/L (98-107)
[2021-08-13] MEDS ORDERED: FUROSEMIDE 40MG/4ML VIAL IV ONE (03:30)
[2021-08-13] MEDS ORDERED: NITROGLYCERIN OINT 1GM/INCH UDPKT TD ONE (03:30)
[2021-08-13] MEDS ORDERED: ALBUTEROL (0.083%) 2.5MG/3ML NEB HHN ONE (03:30)
[2021-08-13] MEDS ORDERED: INSULIN REGULAR (HUMULIN R) 300UNITS/3ML VIAL IV ONE (03:30)
[2021-08-13] MEDS ORDERED: ASPIRIN 81MG TABLET PO ONE (03:30)
[2021-08-13] MEDS ORDERED: SODIUM POLYSTYRENE SULFONATE 15 G/60 ML BOT PO ONE (03:30)
[2021-08-13] MEDS ORDERED: SODIUM BICARBONATE 8.4% 1 MEQ/ML 50ML SYR IV ONE (03:30)
[2021-08-13] MEDS ORDERED: DEXTROSE 50% WATER 50ML SYRINGE IV ONE (03:30)
[2021-08-13 05:12] LABS: INR 0.9; PARTIAL THROMBOPLASTIN TIME 29.8 sec (23.4-31.0); PROTHROMBIN TIME 10.9 sec (9.6-11.0)
[2021-08-13] MEDS ORDERED: ONDANSETRON HCL 4MG/2ML INJ IV PRN (11:00)
[2021-08-13] MEDS ORDERED: IPRATROPIUM/ALBUTEROL 0.5-3(2.5)MG/3ML NEB NEB PRN (11:00)
[2021-08-13] MEDS ORDERED: DEXTROSE 50% WATER 50ML SYRINGE IV PRN (11:00)
[2021-08-13] MEDS ORDERED: DIPHENHYDRAMINE 50MG/ML VIAL IV PRN (11:00)
[2021-08-13] MEDS ORDERED: ACETAMINOPHEN 325MG TABLET PO PRN (11:00)
[2021-08-13] MEDS ORDERED: LORAZEPAM 0.5MG TABLET PO PRN (11:00)
[2021-08-13] MEDS ORDERED: NA PHOS,M-B/NA PHOS,DI-BA ENEMA 118ML PR PRN (11:00)
[2021-08-13] MEDS ORDERED: DOCUSATE SODIUM 100MG CAPSULE PO PRN (11:00)
[2021-08-13] MEDS ORDERED: CLONIDINE 0.1MG TABLET PO PRN (11:00)
[2021-08-13] MEDS ORDERED: MAGNESIUM/ALUMINUM HYDROXIDE/SIMETHICONE 30ML UDC PO PRN (11:00)
[2021-08-13] MEDS ORDERED: ACETAMINOPHEN 650MG SUPP PR PRN (11:00)
[2021-08-13] MEDS ORDERED: NALOXONE HCL 0.4MG/ML VIAL IV PRN (12:15)
[2021-08-13] MEDS ORDERED: CEFTRIAXONE 1 G PREMIX 50 ML IV SCH (13:00)
[2021-08-13] MEDS: FUROSEMIDE 40MG TABLET PO SCH (15:32)
[2021-08-13] MEDS: INSULIN LISPRO 100 UNITS/ML SUBCUT SCH ×2 (15:33→21:45)
[2021-08-13] MEDS: BLOOD SUGAR DIAGNOSTIC STRIP TEST SCH ×2 (15:34→21:00)
[2021-08-13 15:47] LABS: BASOPHILS % 0.6 % (0.0-2.0); LYMPHOCYTES % 15.8 % (20.0-50.0); MEAN CORPUSCULAR HEMOGLOBIN 28.1 pg (28.0-32.0); MEAN CORPUSCULAR VOLUME 83.9 fL (80.0-94.0); MEAN PLATELET VOLUME 7.9 fl (7.4-10.4); MONOCYTES % 8.6 % (2.0-8.0); PLATELET 234 x1000/uL (130-400); RED BLOOD CELL COUNT 2.45 mill/uL (4.7-6.1); RED CELL DISTRIBUTION WIDTH 15.7 % (11.6-14.6)
[2021-08-13 15:51] LABS: CHLORIDE 103 mEq/L (98-107)
[2021-08-13 15:57] LABS: HEMATOCRIT. 20.6 % (42.0-52.0); HEMOGLOBIN. 6.9 g/dL (14.0-18.0)
[2021-08-13 19:00] VITALS: BP 142/67
[2021-08-13 19:30] VITALS: BP 142/67
[2021-08-13 20:00] VITALS: BP 130/71
[2021-08-13] MEDS: IPRATROPIUM/ALBUTEROL 0.5-3(2.5)MG/3ML NEB NEB SCH (21:05)
[2021-08-13] MEDS: FAMOTIDINE 20MG TABLET PO SCH (21:43)
[2021-08-13] MEDS: CARVEDILOL 6.25 MG TABLET PO SCH (21:44)
[2021-08-13 22:30] VITALS: BP 124/67
[2021-08-13 22:45] VITALS: BP 111/65
[2021-08-13] MEDS: GUAIFENESIN 200MG/10ML SUGAR FREE UDC PO PRN (23:04)
[2021-08-13 23:45] VITALS: BP 134/68
[2021-08-14] VITALS (7 sets, daily range): BP systolic 117–148; BP diastolic 62–81
[2021-08-14] MEDS: PANTOPRAZOLE SODIUM 40 MG/VIAL IV SCH ×2 (00:45→08:42)
[2021-08-14] MEDS: IPRATROPIUM/ALBUTEROL 0.5-3(2.5)MG/3ML NEB NEB SCH ×4 (01:40→20:55)
[2021-08-14] MEDS ORDERED: DRON400T PO (02:42)
[2021-08-14] MEDS ORDERED: LOSA25TA26 PO (02:42)
[2021-08-14] MEDS ORDERED: *PATIENT'S OWN MEDICATION STORAGE XX SCH (03:00)
[2021-08-14] MEDS: BLOOD SUGAR DIAGNOSTIC STRIP TEST SCH ×5 (06:20→21:38)
[2021-08-14 06:23] LABS: BASOPHILS % 0.5 % (0.0-2.0); EOSINOPHILS % 4.3 % (0.0-5.0); HEMATOCRIT. 29.5 % (42.0-52.0); HEMOGLOBIN. 9.6 g/dL (14.0-18.0); MEAN CORPUSCULAR HEMOGLOBIN 27.1 pg (28.0-32.0); MEAN CORPUSCULAR VOLUME 83.6 fL (80.0-94.0); MEAN PLATELET VOLUME 8.2 fl (7.4-10.4); NEUTROPHILS % 75.2 % (40.0-76.0); PLATELET 278 x1000/uL (130-400); RED BLOOD CELL COUNT 3.53 mill/uL (4.7-6.1); RED CELL DISTRIBUTION WIDTH 15.7 % (11.6-14.6)
[2021-08-14 06:27] LABS: PROTHROMBIN TIME 10.7 sec (9.6-11.0)
[2021-08-14 06:33] LABS: CHLORIDE 102 mEq/L (98-107)
[2021-08-14 06:40] LABS: LDL CHOLESTEROL 51 mg/dL (5-100)
[2021-08-14 06:42] LABS: HDL CHOLESTEROL 57 mg/dL (40-59); T4 FREE 1.58 ng/dL (0.76-1.46)
[2021-08-14] MEDS: INSULIN LISPRO 100 UNITS/ML SUBCUT SCH ×4 (07:50→21:37)
[2021-08-14] MEDS: TAMSULOSIN HCL 0.4MG SR CAPSULE PO SCH (08:43)
[2021-08-14] MEDS: FUROSEMIDE 40MG TABLET PO SCH (08:43)
[2021-08-14] MEDS: ATORVASTATIN CALCIUM 40MG TABLET PO SCH (08:43)
[2021-08-14] MEDS: CARVEDILOL 6.25 MG TABLET PO SCH ×2 (08:44→21:36)
[2021-08-14] MEDS: MULTIVITAMINS,THER W-MINERALS TABLET PO SCH (08:51)
[2021-08-14] MEDS ORDERED: CEFTRIAXONE 1,000 MG in DEXTROSE 5% WATER 50 ML IV SCH ×2 (12:00→15:00)
[2021-08-14] MEDS: GUAIFENESIN 200MG/10ML SUGAR FREE UDC PO PRN ×2 (15:09→21:37)
[2021-08-14] MEDS ORDERED: NON FORMULARY PATIENT HOME MED XX SCH (19:45)
[2021-08-14] MEDS: FAMOTIDINE 20MG TABLET PO SCH (21:36)
[2021-08-14] MEDS: HYDROCODONE/ACETAMINOPHEN 5/325MG TABLET PO PRN (22:38)
[2021-08-15 00:02] VITALS: BP 142/65
[2021-08-15] MEDS: IPRATROPIUM/ALBUTEROL 0.5-3(2.5)MG/3ML NEB NEB SCH ×4 (01:49→20:06)
[2021-08-15 04:03] VITALS: BP 121/66
[2021-08-15] MEDS: BLOOD SUGAR DIAGNOSTIC STRIP TEST SCH ×4 (06:51→21:07)
[2021-08-15 08:00] VITALS: BP 125/68
[2021-08-15] MEDS: MULTIVITAMINS,THER W-MINERALS TABLET PO SCH (08:48)
[2021-08-15] MEDS: ATORVASTATIN CALCIUM 40MG TABLET PO SCH (08:48)
[2021-08-15] MEDS: PANTOPRAZOLE SODIUM 40 MG/VIAL IV SCH (08:48)
[2021-08-15] MEDS: TAMSULOSIN HCL 0.4MG SR CAPSULE PO SCH (08:48)
[2021-08-15] MEDS: FUROSEMIDE 40MG TABLET PO SCH (08:48)
[2021-08-15] MEDS: CARVEDILOL 6.25 MG TABLET PO SCH ×2 (08:49→21:28)
[2021-08-15] MEDS: DRONEDARONE 400 MG PO SCH ×2 (08:49→18:40)
[2021-08-15] MEDS: INSULIN LISPRO 100 UNITS/ML SUBCUT SCH ×4 (09:01→21:00)
[2021-08-15 10:46] LABS: BASOPHILS % 0.4 % (0.0-2.0); EOSINOPHILS % 4.8 % (0.0-5.0); HEMATOCRIT. 25.7 % (42.0-52.0); HEMOGLOBIN. 8.3 g/dL (14.0-18.0); LYMPHOCYTES % 13.9 % (20.0-50.0); MEAN CORPUSCULAR HEMOGLOBIN 27.3 pg (28.0-32.0); MEAN CORPUSCULAR VOLUME 84.1 fL (80.0-94.0); MEAN PLATELET VOLUME 8.1 fl (7.4-10.4); MONOCYTES % 8.6 % (2.0-8.0); NEUTROPHILS % 72.3 % (40.0-76.0); PLATELET 254 x1000/uL (130-400); RED BLOOD CELL COUNT 3.06 mill/uL (4.7-6.1); RED CELL DISTRIBUTION WIDTH 15.6 % (11.6-14.6)
[2021-08-15 10:47] LABS: PROTHROMBIN TIME 11.2 sec (9.6-11.0)
[2021-08-15 12:00] VITALS: BP 120/72
[2021-08-15] MEDS: CEFTRIAXONE 1,000 MG in DEXTROSE 5% WATER 50 ML IV SCH (12:40)
[2021-08-15] MEDS: GUAIFENESIN 200MG/10ML SUGAR FREE UDC PO PRN ×2 (12:51→21:28)
[2021-08-15] MEDS ORDERED: P20 PO (13:23)
[2021-08-15] MEDS ORDERED: CEPH500T MT (13:23)
[2021-08-15 16:00] VITALS: BP 126/71
[2021-08-15 16:28] LABS: BASOPHILS % 0.4 % (0.0-2.0); EOSINOPHILS % 4.5 % (0.0-5.0); HEMATOCRIT. 27.8 % (42.0-52.0); LYMPHOCYTES % 12.3 % (20.0-50.0); MEAN CORPUSCULAR HEMOGLOBIN 27.5 pg (28.0-32.0); MEAN CORPUSCULAR VOLUME 84.9 fL (80.0-94.0); MEAN PLATELET VOLUME 7.8 fl (7.4-10.4); MONOCYTES % 9.1 % (2.0-8.0); NEUTROPHILS % 73.7 % (40.0-76.0); PLATELET 258 x1000/uL (130-400); RED BLOOD CELL COUNT 3.27 mill/uL (4.7-6.1); RED CELL DISTRIBUTION WIDTH 15.6 % (11.6-14.6)
[2021-08-15 16:51] LABS: CHLORIDE 98 mEq/L (98-107)
[2021-08-15 20:00] VITALS: BP 119/68
[2021-08-15] MEDS: HYDROCODONE/ACETAMINOPHEN 5/325MG TABLET PO PRN (21:28)
[2021-08-16] VITALS: BP 102/64
[2021-08-16 00:57] LABS: HEMATOCRIT 25.8 % (42.0-52.0); HEMOGLOBIN 8.5 g/dL (14.0-18.0)
[2021-08-16] MEDS: IPRATROPIUM/ALBUTEROL 0.5-3(2.5)MG/3ML NEB NEB SCH ×5 (02:24→20:50)
[2021-08-16 04:00] VITALS: BP 111/57
[2021-08-16 06:49] LABS: BASOPHILS % 0.7 % (0.0-2.0); EOSINOPHILS % 5.7 % (0.0-5.0); HEMATOCRIT. 24.8 % (42.0-52.0); HEMOGLOBIN. 8.1 g/dL (14.0-18.0); LYMPHOCYTES % 16.4 % (20.0-50.0); MEAN CORPUSCULAR HEMOGLOBIN 27.4 pg (28.0-32.0); MEAN CORPUSCULAR VOLUME 84.1 fL (80.0-94.0); MEAN PLATELET VOLUME 7.9 fl (7.4-10.4); MONOCYTES % 9.3 % (2.0-8.0); NEUTROPHILS % 67.9 % (40.0-76.0); PLATELET 269 x1000/uL (130-400); RED BLOOD CELL COUNT 2.95 mill/uL (4.7-6.1); RED CELL DISTRIBUTION WIDTH 15.1 % (11.6-14.6)
[2021-08-16] MEDS: BLOOD SUGAR DIAGNOSTIC STRIP TEST SCH ×4 (06:52→21:35)
[2021-08-16 07:08] LABS: CHLORIDE 100 mEq/L (98-107)
[2021-08-16 08:00] VITALS: BP 134/71
[2021-08-16] MEDS: MULTIVITAMINS,THER W-MINERALS TABLET PO SCH (09:10)
[2021-08-16] MEDS: INSULIN LISPRO 100 UNITS/ML SUBCUT SCH ×4 (09:10→21:35)
[2021-08-16] MEDS: ATORVASTATIN CALCIUM 40MG TABLET PO SCH (09:10)
[2021-08-16] MEDS: PANTOPRAZOLE SODIUM 40 MG/VIAL IV SCH (09:10)
[2021-08-16] MEDS: FUROSEMIDE 40MG TABLET PO SCH (09:11)
[2021-08-16] MEDS: TAMSULOSIN HCL 0.4MG SR CAPSULE PO SCH (09:11)
[2021-08-16] MEDS: CARVEDILOL 6.25 MG TABLET PO SCH ×2 (09:11→21:34)
[2021-08-16] MEDS: DRONEDARONE 400 MG PO SCH ×2 (09:12→17:49)
[2021-08-16] MEDS: GUAIFENESIN 200MG/10ML SUGAR FREE UDC PO PRN ×2 (10:36→20:11)
[2021-08-16 12:00] VITALS: BP 103/62
[2021-08-16] MEDS ORDERED: IOHEXOL-350 100 ML BOTTLE ONE ×2 (13:00→14:41)
[2021-08-16] MEDS: CEFTRIAXONE 1,000 MG in DEXTROSE 5% WATER 50 ML IV SCH (13:15)
[2021-08-16 16:00] VITALS: BP 136/64
[2021-08-16] MEDS: METHYLPREDNISOLONE SOD SUCC 40 MG/ML VIAL IV SCH (17:48)
[2021-08-16 17:52] LABS: HEMATOCRIT 27.6 % (42.0-52.0); HEMOGLOBIN 8.8 g/dL (14.0-18.0)
[2021-08-16] MEDS ORDERED: FUROSEMIDE 40MG/4ML VIAL IVP SCH (18:00)
[2021-08-16 20:00] VITALS: BP 124/69
[2021-08-16] MEDS: HYDROCODONE/ACETAMINOPHEN 5/325MG TABLET PO PRN (21:34)
[2021-08-17] VITALS: BP 113/67
[2021-08-17] MEDS: GUAIFENESIN 200MG/10ML SUGAR FREE UDC PO PRN ×4 (00:13→23:53)
[2021-08-17] MEDS: IPRATROPIUM/ALBUTEROL 0.5-3(2.5)MG/3ML NEB NEB SCH ×4 (02:18→13:29)
[2021-08-17 04:00] VITALS: BP 124/73
[2021-08-17] MEDS: METHYLPREDNISOLONE SOD SUCC 40 MG/ML VIAL IV SCH ×2 (06:31→18:45)
[2021-08-17] MEDS: PANTOPRAZOLE 40MG DR TABLET PO SCH (06:31)
[2021-08-17] MEDS: BLOOD SUGAR DIAGNOSTIC STRIP TEST SCH ×4 (06:31→21:35)
[2021-08-17 08:00] VITALS: BP 142/70
[2021-08-17 08:20] LABS: BASOPHILS % 0.3 % (0.0-2.0); EOSINOPHILS % 0.7 % (0.0-5.0); HEMATOCRIT. 26.5 % (42.0-52.0); HEMOGLOBIN. 8.6 g/dL (14.0-18.0); LYMPHOCYTES % 15.6 % (20.0-50.0); MEAN CORPUSCULAR HEMOGLOBIN 27.4 pg (28.0-32.0); MEAN CORPUSCULAR VOLUME 84.1 fL (80.0-94.0); MEAN PLATELET VOLUME 7.8 fl (7.4-10.4); MONOCYTES % 6.2 % (2.0-8.0); NEUTROPHILS % 77.2 % (40.0-76.0); PLATELET 320 x1000/uL (130-400); RED BLOOD CELL COUNT 3.15 mill/uL (4.7-6.1); RED CELL DISTRIBUTION WIDTH 15.2 % (11.6-14.6)
[2021-08-17] MEDS: DRONEDARONE 400 MG PO SCH ×2 (09:21→16:38)
[2021-08-17] MEDS: CARVEDILOL 6.25 MG TABLET PO SCH ×2 (09:22→21:35)
[2021-08-17] MEDS: ATORVASTATIN CALCIUM 40MG TABLET PO SCH (09:22)
[2021-08-17] MEDS: MULTIVITAMINS,THER W-MINERALS TABLET PO SCH (09:23)
[2021-08-17] MEDS: TAMSULOSIN HCL 0.4MG SR CAPSULE PO SCH (09:23)
[2021-08-17] MEDS: INSULIN LISPRO 100 UNITS/ML SUBCUT SCH ×4 (09:24→21:36)
[2021-08-17] MEDS: SODIUM CHLORIDE 0.9% 1,000 ML IV SCH (11:33)
[2021-08-17] MEDS: CEFTRIAXONE 1,000 MG in DEXTROSE 5% WATER 50 ML IV SCH (11:33)
[2021-08-17 12:00] VITALS: BP 117/79
[2021-08-17] MEDS ORDERED: INSULIN GLARGINE UD 100 UNITS/ML SYR SUBCUT NR (15:00)
[2021-08-17 16:00] VITALS: BP 122/72
[2021-08-17 17:23] LABS: HEMATOCRIT 26.3 % (42.0-52.0); HEMOGLOBIN 8.5 g/dL (14.0-18.0)
[2021-08-17] MEDS ORDERED: SODIUM POLYSTYRENE SULFONATE 15 G/60 ML BOT PO NR (19:00)
[2021-08-17 20:00] VITALS: BP 133/70
[2021-08-17] MEDS ORDERED: INSULIN GLARGINE UD 100 UNITS/ML SYR SUBCUT SCH (22:00)
[2021-08-18] VITALS (7 sets, daily range): BP systolic 111–143; BP diastolic 63–76
[2021-08-18] MEDS: IPRATROPIUM/ALBUTEROL 0.5-3(2.5)MG/3ML NEB NEB SCH ×5 (00:39→21:14)
[2021-08-18] MEDS: METHYLPREDNISOLONE SOD SUCC 40 MG/ML VIAL IV SCH ×2 (06:14→18:24)
[2021-08-18] MEDS: BLOOD SUGAR DIAGNOSTIC STRIP TEST SCH ×4 (06:21→21:15)
[2021-08-18] MEDS: PANTOPRAZOLE 40MG DR TABLET PO SCH (06:21)
[2021-08-18 09:00] LABS: BASOPHILS % 0.9 % (0.0-2.0); EOSINOPHILS % 0.9 % (0.0-5.0); HEMATOCRIT. 23.7 % (42.0-52.0); LYMPHOCYTES % 7.6 % (20.0-50.0); MEAN CORPUSCULAR HEMOGLOBIN 27.9 pg (28.0-32.0); MEAN CORPUSCULAR VOLUME 82.6 fL (80.0-94.0); MONOCYTES % 3.3 % (2.0-8.0); NEUTROPHILS % 87.3 % (40.0-76.0); PLATELET 318 x1000/uL (130-400); RED BLOOD CELL COUNT 2.87 mill/uL (4.7-6.1)
[2021-08-18] MEDS: MULTIVITAMINS,THER W-MINERALS TABLET PO SCH (09:05)
[2021-08-18] MEDS: DRONEDARONE 400 MG PO SCH ×2 (09:05→18:25)
[2021-08-18] MEDS: TAMSULOSIN HCL 0.4MG SR CAPSULE PO SCH (09:06)
[2021-08-18] MEDS: CARVEDILOL 6.25 MG TABLET PO SCH ×2 (09:06→21:11)
[2021-08-18] MEDS: ATORVASTATIN CALCIUM 40MG TABLET PO SCH (09:06)
[2021-08-18] MEDS: INSULIN LISPRO 100 UNITS/ML SUBCUT SCH ×4 (09:08→21:14)
[2021-08-18] MEDS: SODIUM CHLORIDE 0.9% 1,000 ML IV SCH (12:12)
[2021-08-18] MEDS: CEFTRIAXONE 1,000 MG in DEXTROSE 5% WATER 50 ML IV SCH (12:17)
[2021-08-18] MEDS: INSULIN GLARGINE UD 100 UNITS/ML SYR SUBCUT SCH ×2 (12:36→21:16)
[2021-08-18] MEDS ORDERED: SODIUM CHLORIDE 0.9% 1,000 ML IV SCH (13:23)
[2021-08-18 15:39] LABS: HEMATOCRIT 27.2 % (42.0-52.0); HEMOGLOBIN 8.6 g/dL (14.0-18.0)
[2021-08-18] MEDS: GUAIFENESIN 200MG/10ML SUGAR FREE UDC PO PRN (18:25)
== END 2021-08-18 23:30 | DRG 920 ==
LOC: ER 01:55 → MICUSO 05:07 → 6WST 16:43
PROVIDERS: ADMIT Internal Medicine; ATTEND Internal Medicine
PROC: 30233N1 Transfusion of Nonautologous Red Blood Cells into Peripheral Vein, Percutaneous Approach (ICD-10-PCS; principal; 2021-08-13)
DX: L76.34 Postprocedural seroma of skin and subcutaneous tissue following other procedure (principal); L03.115 Cellulitis of right lower limb; E87.1 Hypo-osmolality and hyponatremia; I42.9 Cardiomyopathy, unspecified; J44.1 Chronic obstructive pulmonary disease with (acute) exacerbation; I47.1 Supraventricular tachycardia; N17.9 Acute kidney failure, unspecified; L76.32 Postprocedural hematoma of skin and subcutaneous tissue following other procedure; E11.65 Type 2 diabetes mellitus with hyperglycemia; D64.9 Anemia, unspecified; E87.5 Hyperkalemia; I11.0 Hypertensive heart disease with heart failure; I25.10 Atherosclerotic heart disease of native coronary artery without angina pectoris; I50.9 Heart failure, unspecified; R06.03 Acute respiratory distress; E11.51 Type 2 diabetes mellitus with diabetic peripheral angiopathy without gangrene; E78.5 Hyperlipidemia, unspecified; I48.91 Unspecified atrial fibrillation; N40.0 Benign prostatic hyperplasia without lower urinary tract symptoms; I72.3 Aneurysm of iliac artery; Z20.822 Contact with and (suspected) exposure to COVID-19; Y83.8 Other surgical procedures as the cause of abnormal reaction of the patient, or of later complication, without mention of misadventure at the time of the procedure; Z82.49 Family history of ischemic heart disease and other diseases of the circulatory system; I25.2 Old myocardial infarction; Z82.5 Family history of asthma and other chronic lower respiratory diseases; Z95.810 Presence of automatic (implantable) cardiac defibrillator; Z98.61 Coronary angioplasty status; Z79.02 Long term (current) use of antithrombotics/antiplatelets; Z79.82 Long term (current) use of aspirin; Z79.84 Long term (current) use of oral hypoglycemic drugs; Z79.899 Other long term (current) drug therapy; Y92.89 Other specified places as the place of occurrence of the external cause
CPT/HCPCS: 36415; 71045; 72191; 73700; 74176; 76881; 80048; 80053; 80061; 82962; 83880; 84153; 84439; 84443; 84484; 85014; 85018; 85025; 85044; 85384; 86850; 86900; 86920; 87426; 93005; 93970; 94640; 97116; 97161; 97165; 99285; C1893; C9113; J0696; J1815; J1940; J2920; J3490; J7030; J7040; J7060; P9016; Q9967; A4315; G0103

== ENCOUNTER 2022-07-14 21:32 | Inpatient (IN) | payer OTHER ==
[~2022-07-14] VITALS: Ht 185.4 cm; Wt 60.3 kg
[~2022-07-14 21:32] MED LIST changes: -CLOP-31 MT; +IPRA3AMP9 NEB; +LEVO250T43 MT; +LORA-249 MT; +LOSA25TA26 PO; -MULT-1234 MT; -PROT40 MT
[2022-07-14] MEDS ORDERED: METHYLPREDNISOLONE SOD SUCC 125 MG/2 ML VIAL IV STA (22:08)
[2022-07-14] MEDS ORDERED: IPRATROPIUM BROMIDE (0.02%) 0.5MG/2.5ML NEB HHN STA (22:08)
[2022-07-14] MEDS ORDERED: MAGNESIUM 2 G PREMIX 50 ML IV ONE (22:15)
[2022-07-14] MEDS: ALBUTEROL (0.083%) 2.5MG/3ML NEB HHN SCH ×3 (22:45→22:47)
[2022-07-14 23:05] LABS: HEMATOCRIT. 28.6 % (42.0-52.0); HEMOGLOBIN. 8.6 g/dL (14.0-18.0); MEAN CORPUSCULAR HEMOGLOBIN 25.9 pg (28.0-32.0); MEAN CORPUSCULAR VOLUME 86.1 fL (80.0-94.0); MEAN PLATELET VOLUME 7.8 fl (7.4-10.4); PLATELET 374 x1000/uL (130-400); RED BLOOD CELL COUNT 3.32 mill/uL (4.7-6.1); RED CELL DISTRIBUTION WIDTH 21.3 % (11.6-14.6)
[2022-07-14 23:13] LABS: CHLORIDE 98 mEq/L (98-107)
[2022-07-14 23:25] LABS: PLATELET ESTIMATE NORMAL
[2022-07-15 06:45] VITALS: BP 121/68
[2022-07-15 08:00] VITALS: BP_SYST 121; BP_SYST 130; BP_DIAS 70; BP_DIAS 88
[2022-07-15] MEDS ORDERED: DEXTROSE 50% WATER 50ML SYRINGE IV PRN ×2 (10:00→20:45)
[2022-07-15] MEDS ORDERED: ONDANSETRON HCL 4MG/2ML INJ IV PRN (10:00)
[2022-07-15] MEDS: FAMOTIDINE 20MG TABLET PO SCH ×2 (11:25→21:24)
[2022-07-15] MEDS: METHYLPREDNISOLONE SOD SUCC 40 MG/ML VIAL IV SCH ×3 (11:25→21:24)
[2022-07-15] MEDS: BLOOD SUGAR DIAGNOSTIC STRIP TEST SCH ×3 (11:34→20:56)
[2022-07-15] MEDS: IPRATROPIUM/ALBUTEROL 0.5-3(2.5)MG/3ML NEB HHN SCH ×3 (11:36→20:11)
[2022-07-15 12:00] VITALS: BP 139/76
[2022-07-15] MEDS: INSULIN LISPRO 100 UNITS/ML SUBCUT SCH ×3 (12:01→21:26)
[2022-07-15] MEDS ORDERED: TRAMADOL 50MG TABLET PO PRN (14:45)
[2022-07-15] MEDS ORDERED: NALOXONE HCL 0.4MG/ML VIAL IV PRN (15:00)
[2022-07-15 16:00] VITALS: BP 122/73
[2022-07-15 18:02] LABS: CLARITY URINE CLEAR (CLEAR); COLOR URINE YELLOW (YELLOW); KETONES URINE NEGATIVE (NEGATIVE); LEUKOCYTE ESTERASE URINE NEGATIVE (NEGATIVE); NITRITE URINE NEGATIVE (NEGATIVE); OCCULT BLOOD URINE NEGATIVE (NEGATIVE); PH URINE 7.5 (4.5-8.0); PROTEIN URINE 3+ (NEGATIVE); SPECIFIC GRAVITY URINE 1.016 (1.005-1.030)
[2022-07-15 20:00] VITALS: BP 125/74
[2022-07-15] MEDS ORDERED: INSULIN LISPRO 100 UNITS/ML SUBCUT SCH (21:00)
[2022-07-15] MEDS ORDERED: BLOOD SUGAR DIAGNOSTIC STRIP TEST SCH (21:00)
[2022-07-15] MEDS: CARVEDILOL 3.125 MG TABLET PO SCH (21:25)
[2022-07-15] MEDS: TRAZODONE HCL 50MG TABLET PO SCH (21:25)
[2022-07-15 23:09] VITALS: BP 145/75
[2022-07-16] VITALS (8 sets, daily range): BP systolic 109–143; BP diastolic 61–79
[2022-07-16] MEDS: IPRATROPIUM/ALBUTEROL 0.5-3(2.5)MG/3ML NEB HHN SCH ×6 (00:18→21:13)
[2022-07-16] MEDS: BLOOD SUGAR DIAGNOSTIC STRIP TEST SCH ×4 (06:45→21:52)
[2022-07-16] MEDS: METHYLPREDNISOLONE SOD SUCC 40 MG/ML VIAL IV SCH ×3 (06:46→21:57)
[2022-07-16] MEDS: INSULIN LISPRO 100 UNITS/ML SUBCUT SCH ×4 (06:53→22:15)
[2022-07-16 07:32] LABS: HEMATOCRIT. 22.4 % (42.0-52.0); HEMOGLOBIN. 7.3 g/dL (14.0-18.0); MEAN CORPUSCULAR HEMOGLOBIN 26.5 pg (28.0-32.0); MEAN CORPUSCULAR VOLUME 81.7 fL (80.0-94.0); MEAN PLATELET VOLUME 7.9 fl (7.4-10.4); PLATELET 310 x1000/uL (130-400); RED BLOOD CELL COUNT 2.74 mill/uL (4.7-6.1); RED CELL DISTRIBUTION WIDTH 21.3 % (11.6-14.6)
[2022-07-16 07:50] LABS: CHLORIDE 96 mEq/L (98-107)
[2022-07-16] MEDS: FAMOTIDINE 20MG TABLET PO SCH ×2 (09:01→21:57)
[2022-07-16] MEDS: CARVEDILOL 3.125 MG TABLET PO SCH ×2 (09:01→21:58)
[2022-07-16] MEDS: LOSARTAN POTASSIUM 25 MG TABLET PO SCH ×2 (09:01→09:09)
[2022-07-16] MEDS: FUROSEMIDE 40MG TABLET PO SCH (09:01)
[2022-07-16 12:48] LABS: PLATELET ESTIMATE NORMAL
[2022-07-16] MEDS: TRAZODONE HCL 50MG TABLET PO SCH (21:57)
[2022-07-17] VITALS: BP 128/78
[2022-07-17] MEDS: IPRATROPIUM/ALBUTEROL 0.5-3(2.5)MG/3ML NEB HHN SCH ×5 (00:27→16:42)
[2022-07-17 04:20] VITALS: BP 116/54
[2022-07-17] MEDS: METHYLPREDNISOLONE SOD SUCC 40 MG/ML VIAL IV SCH ×2 (05:17→17:35)
[2022-07-17] MEDS: BLOOD SUGAR DIAGNOSTIC STRIP TEST SCH ×2 (05:17→12:10)
[2022-07-17] MEDS: INSULIN LISPRO 100 UNITS/ML SUBCUT SCH ×2 (05:51→15:38)
[2022-07-17 07:01] LABS: HEMATOCRIT. 25.1 % (42.0-52.0); HEMOGLOBIN. 8.1 g/dL (14.0-18.0); MEAN CORPUSCULAR HEMOGLOBIN 26.7 pg (28.0-32.0); MEAN CORPUSCULAR VOLUME 82.3 fL (80.0-94.0); MEAN PLATELET VOLUME 8.1 fl (7.4-10.4); PLATELET 311 x1000/uL (130-400); RED BLOOD CELL COUNT 3.05 mill/uL (4.7-6.1)
[2022-07-17 08:23] VITALS: BP 125/69
[2022-07-17] MEDS: FUROSEMIDE 40MG TABLET PO SCH (09:00)
[2022-07-17] MEDS: FAMOTIDINE 20MG TABLET PO SCH (09:15)
[2022-07-17] MEDS: CARVEDILOL 3.125 MG TABLET PO SCH (09:16)
[2022-07-17 10:27] LABS: PLATELET ESTIMATE NORMAL
[2022-07-17 16:50] VITALS: BP 133/67
== END 2022-07-17 19:11 | disposition home or self-care (01) | DRG 291 ==
LOC: ER 21:32 → MICUSO 07-15 00:59 → 8WST 07-15 07:28
PROVIDERS: ADMIT Internal Medicine; ATTEND Internal Medicine
PROC: 30233N1 Transfusion of Nonautologous Red Blood Cells into Peripheral Vein, Percutaneous Approach (ICD-10-PCS; principal; 2022-07-16)
DX: I11.0 Hypertensive heart disease with heart failure (principal); I50.23 Acute on chronic systolic (congestive) heart failure; J96.20 Acute and chronic respiratory failure, unspecified whether with hypoxia or hypercapnia; J44.1 Chronic obstructive pulmonary disease with (acute) exacerbation; I25.10 Atherosclerotic heart disease of native coronary artery without angina pectoris; Z20.822 Contact with and (suspected) exposure to COVID-19; E11.9 Type 2 diabetes mellitus without complications; Z95.810 Presence of automatic (implantable) cardiac defibrillator; Z99.81 Dependence on supplemental oxygen; Z79.82 Long term (current) use of aspirin; Z79.84 Long term (current) use of oral hypoglycemic drugs; Z79.899 Other long term (current) drug therapy
CPT/HCPCS: 36415; 71045; 80048; 80053; 81003; 82962; 83880; 84145; 84484; 85025; 85379; 86850; 86900; 86920; 87426; 93005; 94640; 94644; 94664; 99285; J1815; J2920; J2930; J3475; P9016